=== PATIENT | male | born 1940 | race Caucasian/White ===

== ENCOUNTER 2022-02-16 10:24 | Inpatient (IN) | payer MEDICARE, OTHER ==
[~2022-02-16] VITALS: Ht 177.8 cm; Wt 97.2 kg
--- NOTE | 2022-02-16 11:24 | PM&R Post Admission Assessment ---
PM&R HP Date of Visit: Feb 16, 2022 Time of Visit: 14:00 History of Present Illness CC: Debility following extensive lumbar spine surgery at [facility] Maribel Adams POD # 4 HPI: This is an 81yo male who presented to IR[facility] following an extensive lumbar spine surgery by Dr Adams POD # 4 which has been a bit complicated with slow recovery and post op hiccups along with a fever and hypoxia with abdominal xray and CXR revealing no ileus or PNA but empirically placed on Levaquin who presents to [facility] in need of aggressive therapy in order to regain ADL function and ambulatory skills in order to return home with family. Daughter is at the bedside and very involved in his care. Patient rates his pain at 4. Fever persists so will monitor that closely. Lungs remain clear. Voiding well and BM+. 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 GERD (gastroesophageal reflux disease) Headache Migraines History of migraine headaches Hyperlipidemia Post-operative nausea and vomiting RLS (restless legs syndrome) HX APPENDECTOMY HX CERVICAL SPINE SURGERY DR ADAMS/MARIBEL ANGEL HX EGD N/A 12/17/2021 ESOPHAGOGASTRODUODENOSCOPY WITH DILATION performed by Carmela Cuellar MD (John) at [facility] HX EXTREMITY CYST EXCISION Right wrist cyst removed 3 times HX HAND SURGERY HX SPINAL CORD STIMULATOR IMPLANT 2007 HX SPINAL SURGERY AK AUTOGRAFT SPINE SURGERY LOCAL FROM SAME INCISION N/A 02/12/2022 L4-S1 Transforaminal Lumbar Interbody Fusion / Posterior Spinal Fusion with left approach and L4-S1 instrumentation performed by Jude Adams MD at [facility] OR AK BIOPSY OF STOMACH,BY LAPAROTOMY N/A 12/17/2021 GASTRIC BIOPSY performed by Carmela Cuellar MD (John) at [facility] [place] IMPLANT SPINAL NEUROSTIM/DIRECTOR OF DISTRICT OFFICE N/A 10/02/2021 SPINAL CORD DORSAL COLUMN STIMULATOR BATTERY EXCHANGE performed by Jude Adams MD at [facility] OR simvastatin (ZOCOR) 20 mg tablet Take 20 mg by mouth daily with supper. 02/11/2022 at Unknown time SUMAtriptan (IMITREX) 50 mg tablet 02/11/2022 at Unknown time HYDROcodone-acetaminophen (NORCO) 10-325 mg Tablet Take 1 Tablet by mouth every 8 hours as needed. Past Week at Unknown time divalproex (DEPAKOTE) 250 mg Delayed Release tablet Take 250 mg by mouth 3 times daily. 02/11/2022 at Unknown time potassium chloride (KLOR-CON) 20 mEq Extended Release tablet Take 20 mEq by mouth daily. 02/11/2022 at Unknown time omeprazole (PriLOSEC) 40 mg Capsule, Delayed Release(E.C.) Take 40 mg by mouth daily in the morning. 02/12/2022 at Unknown time gabapentin (NEURONTIN) 600 mg tablet Take 600 mg by mouth 3 times daily. 02/11/2022 at Unknown time cetirizine (ZyrTEC) 10 mg tablet Take 10 mg by mouth daily after lunch. 02/11/2022 at Unknown time terazosin (HYTRIN) 10 mg capsule Take 10 mg by mouth daily at bedtime. 02/11/2022 at Unknown time rOPINIRole (REQUIP) 2 mg Tablet Take 2 mg by mouth daily at bedtime. 02/11/2022 at Unknown time carboxymethylcellulose sodium (REFRESH) 0.5 % solution Administer 1 Drop in both eyes 2 times daily as needed. diclofenac sodium (VOLTAREN) 1 % gel Apply to affected area 4 times daily as needed for Pain. Unknown at Unknown time meloxicam (MOBIC) 7.5 mg tablet Take 7.5 mg by mouth daily before supper. 02/02/2022 Past Snycagm-Vfbolg-Jrhmlj Hx Past Med/Social Hx: Reviewed Nursing Past Med/Soc Hx, Reviewed and Corrections made Patient Social History Marrital Status: Employed/Student: retired Alcohol Use: Denies Use Smoking Status: Former Smoker Past Medical History Surgeries: Orthopedic Cardiac: High Cholesterol, Hypertension Neurological: Headaches /Migraines, Neuropathy Genitourinary: Benign Prostatic Hyperpl Gastrointestinal: Gastroesophageal Reflux Musculoskeletal: Arthritis, Chronic Back Pain Cancer: Skin Did You Recieve Any Treatments: Yes What Type of Treatment Did You: Surgical Intervention PM&R Allergy/Meds/Data Review Allergies Coded Allergies: Penicillins (Verified Allergy, Unknown, 02/16/22) Home Medications Scheduled Cetirizine HCl (Cetirizine HCl), 10 MG PO 1300, (Reported) Divalproex Sodium (Depakote), 250 MG PO TID, (Reported) Gabapentin (Gabapentin), 600 MG PO TID, (Reported) Levofloxacin (Levofloxacin), 750 MG PO DAILY, (Reported) Omeprazole (Omeprazole), 40 MG PO DAILY, (Reported) Potassium Chloride (Potassium Chloride), 20 MEQ PO DAILY, (Reported) Ropinirole HCl (Ropinirole HCl), 2 MG PO HS, (Reported) Simvastatin (Simvastatin), 20 MG PO 1800 W/ SUPPER, (Reported) Terazosin HCl (Terazosin HCl), 10 MG PO HS, (Reported) Scheduled PRN Baclofen (Baclofen), 10 MG PO Q8H PRN for MUSCLE SPASMS, (Reported) Carboxymethylcellulose Sodium (Refresh Tears), 1 DROP OU BID PRN for DRY EYES, (Reported) Diclofenac Sodium (Diclofenac Sodium), 1 APPLIC TP QID PRN for PAIN- BREAKTHROUGH, (Reported) Hydrocodone/Acetaminophen (Hydrocodone-Acetamin 10-325 mg), 1 EACH PO Q4H PRN for PAIN-MODERATE (5-7), (Reported) Naloxone HCl (Naloxone HCl), 1 SPRAYS NS UD PRN for OPIIATE OVERDOSE, (Reported) Sumatriptan Succinate (Sumatriptan Succinate), 50 MG PO UD PRN for MIGRAINE, (Reported) Current Medications Current Medications Reviewed Review of Systems Constitutional: see HPI, malaise, weakness EENTM: no symptoms reported Respiratory: no symptoms reported Cardiovascular: no symptoms reported Gastrointestinal: other (hiccups) Genitourinary: no symptoms reported Musculoskeletal: back pain, joint pain Skin: no symptoms reported Psychiatric/Neurological: Anxiety All Other Systems Reviewed Negative Unless Noted: Yes Physical Exam Physical Exam Vital Signs Capillary Refill : Height, Weight, BMI Height: '" Weight: lbs. oz. kg; BMI Method: General Appearance: No Apparent Distress, WD/WN, Chronically ill Eyes: Bilateral Eye Normal Inspection, Bilateral Eye PERRL HEENT: PERRL/EOMI, Normal ENT Inspection, Pharynx Normal Neck: Full Range of Motion, Normal Inspection, Non Tender, Supple, Carotid Bruit Respiratory: Chest Non Tender, Lungs Clear, Normal Breath Sounds, No Accessory Muscle Use, No Respiratory Distress Cardiovascular: Regular Rate, Rhythm, No Edema, No Gallop, No JVD, No Murmur, Normal Peripheral Pulses Gastrointestinal: Normal Bowel Sounds, No Organomegaly, No Pulsatile Mass, Non Tender, Soft Back: Normal Inspection, Decreased Range of Motion, Muscle Spasm, Vertebral Tenderness Extremity: Normal Capillary Refill, Normal Inspection, Normal Range of Motion, Non Tender, No Calf Tenderness, No Pedal Edema Neurologic/Psychiatric: Alert, Oriented x3, Normal 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, 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 Norm as Tested, Abnormal Gait, Motor Weakness (legs) Skin: Normal Color, Warm/Dry Lymphatic: No Adenopathy PM&R Medical Assessment & Plan REHAB/MEDICAL ASSESSMENT AND PLAN: REHAB IMPAIRMENT GROUP: Lumbar stenosis ETIOLOGIC DIAGNOSIS: Lumbar stenosis The comorbidities that impact the patients function and/or functional outcome by: advanced age, post op fever, hypoxia, hiccups REHAB PLAN: The patient is being admitted to our comprehensive inpatient rehabilitation facility and can tolerate the intensity of service consisting of at least: 180 minutes of therapy a day, 5 out of 7 days a week Rehab treatment will consist of: PT OT will focus on regaining function in order to regain ADL's and ambulatory function in order to return to independent living The patient/family has a good understanding of our discharge process and will benefit from an interdisciplinary inpatient rehabilitation program. The patient has potential to make improvement and is in need of at least two of the following multidisciplinary therapies including but not limited to physical, occupational, speech, and prosthetics and orthotics. Additionally the patient will need services from respiratory, nutritional services, wound care, psychology, etc. (Customize this to each patient). Given the patients complex condition and risk of further medical complications, rehabilitation services cannot be safely or effectively provided at a lower level of care such as a shelter facility. BARRIERS TO DISCHARGE: Advanced age ESTIMATED LOS: 7 days DISPOSITION: Home RELEVANT CHANGES SINCE PREADMISSION SCREENING: I have compared the patients medical and functional status at the time of the preadmission screening and there are: no changes PROGNOSIS: Good REHABILITATION GOALS: 1. PT OT will focus on regaining function in order to regain ADL's and ambulatory function in order to return to independent living All the above goals were reviewed with the patient and he/she is in agreement. By signing this document, I acknowledge that I have personally performed a full physical examination on this patient within 24 hours of admission to this inpatient rehabilitation facility and have determined the patient to be able to tolerate the above course of treatment at an intensive level for a reasonable period of time. I will be completing a detailed individualized Plan of Care for this patient by day #4 of the patients stay based upon the Preadmission Screen, the Post-Admission Evaluation, and the therapy evaluations. Admission Dx/Comorbidities: (1) Spinal stenosis, lumbar region with neurogenic claudication ICD Codes: M48.062 - Spinal stenosis, lumbar region with neurogenic claudication Assessment/Plan Assessment and Plan Assess & Plan/Chief Complaint Assessment: Lumbar stenosis POD # [address] Adams in [facility] [place] Post op fever CXR and KUB negative placed on Levaquin empirically Advanced age HTN HLP BPH OA RLS Neuropathy Migraines Post op hiccups placed on Baclofen Plan: Monitor pain Baclofen for hiccups Levaquin empirically GEORGE OMER DO Feb 16, 2022 11:24
[2022-02-16] MEDS ORDERED: DICL100G13 TP (11:27)
[2022-02-16] MEDS ORDERED: CARB15DR OU (11:27)
[2022-02-16] MEDS ORDERED: TERA10CA3 PO (11:27)
[2022-02-16] MEDS ORDERED: SUMA50TA2 PO (11:27)
[2022-02-16] MEDS ORDERED: CETI10TA17 PO (11:27)
[2022-02-16] MEDS ORDERED: BACL10TA PO (11:27)
[2022-02-16] MEDS ORDERED: ROPI2TAB6 PO (11:27)
[2022-02-16] MEDS ORDERED: GBPN600T PO (11:27)
[2022-02-16] MEDS ORDERED: DIVA250T2 PO (11:27)
[2022-02-16] MEDS ORDERED: SIMV20TA26 PO (11:27)
[2022-02-16] MEDS ORDERED: HYDR-3820 PO (11:27)
[2022-02-16] MEDS ORDERED: OMEP40CA6 PO (11:27)
[2022-02-16] MEDS ORDERED: LEVO750T39 PO (11:27)
[2022-02-16] MEDS ORDERED: POTA-51 PO (11:27)
[2022-02-16] MEDS ORDERED: NALO4SPR3 NS (11:27)
[2022-02-16] MEDS ORDERED: DOCUSATE SODIUM 100 MG (COLACE) CAP PO PRN (11:30)
[2022-02-16] MEDS ORDERED: FLEET ENEMA ADULT 1 EA BTL PR PRN (11:30)
[2022-02-16] MEDS ORDERED: CALCIUM CARBONATE 500 MG (TUMS) TAB.CHEW PO PRN (11:30)
[2022-02-16] MEDS ORDERED: BISACODYL 10 MG SUPP (DULCOLAX) PR PRN (11:30)
[2022-02-16] MEDS ORDERED: LOPERAMIDE 2 MG (IMODIUM) TABLET PO PRN (11:30)
[2022-02-16] MEDS ORDERED: MELATONIN 3 MG TABLET PO PRN (11:30)
[2022-02-16] MEDS ORDERED: ALPRAZolam 0.25 MG (XANAX) TAB PO PRN (11:30)
[2022-02-16] MEDS ORDERED: guaiFENesin/CODEINE (ROBITUSSIN AC) 10ML UDC PO PRN (11:30)
[2022-02-16] MEDS ORDERED: LACTULOSE SYRUP 10GM/15ML (ENULOSE) 30ML UDC PO PRN (11:30)
[2022-02-16] MEDS ORDERED: diphenhydrAMINE 25 MG TAB (BENADRYL) PO PRN (11:30)
[2022-02-16 13:00] VITALS: BP 131/60
--- NOTE | 2022-02-16 13:48 | Physical Therapy Evaluation ---
PT Evaluation-General Medical Diagnosis Admission Date Feb 16, 2022 at 13:00 Medical Diagnosis: L4-S1 TLIF/PSF Onset Date: Feb 12, 2022 Therapy Diagnosis Therapy Diagnosis: debility/weakness Precautions Precautions/Isolations: Standard Precautions Referral Physician: Kelsie Reason for Referral: Evaluation/Treatment Medical History Current History s/p L4-S1 TLIF/PSF Reviewed History: Yes Social History Home: Single Level Current Living Status: Spouse Entry Into Home: Level Entry Prior Prior Level of Function SCALE: Activities may be completed with or without assistive devices. 2-Luucqzkujl-mrvlsmj completes the activity by him/herself with no assistance from a helper. 5-Set-up or Clean-up Assistance-helper sets up or cleans up; patient completes activity. Elwood assists only prior to or following the activity. 4-Supervision or Touching Assistance-helper provides verbal cues and/or touching/steadying and/or contact guard assistance as patient completes activity. Assistance may be provided throughout the activity or intermittently. 3-Partial/Moderate Assistance-helper does LESS THAN HALF the effort. Elwood lifts, holds or supports trunk or limbs, but provides less than half the effort. 2-Substantial/Maximal Assistance-helper does MORE THAN HALF the effort. Elwood lifts or holds trunk or limbs and provides more than half the effort. 0-Mcdygvcsx-zopxmd does ALL the effort. Patient does none of the effort to complete the activity. Or, the assistance of 2 or more helpers is required for the patient to complete the activity. If activity was not attempted, code reason: 7-Patient Refused. 9-Not Applicable-not attempted and the patient did not perform the activity before the current illness, exacerbation or injury. 10-Not Attempted due to Environmental Limitations-(lack of equipment, weather restraints, etc.). 88-Not Attempted due to Medical Conditions or Safety Concerns. Bed Mobility: 6 Transfers (B,C,W/C): 6 Gait: 6 Stairs: 6 Indoor Mobility (Ambulation): Independent Stairs: Independent Prior Devices Use: Other-see list below Prior Device Use: cane PT Evaluation-Current Subjective Patient agrees to PT. Patient reports he has a pain stimulator in his back. Pain Numeric Pain Scale: 5-Moderate Pain Location: Lower Location Body Site: Back Pain Description: Acute Objective Patient Orientation: Normal For Age ROM/Strength ROM Lower Extremities bilateral LE WFL Strength Lower Extremities 4-/5 grossly bilateral LE all planes Integumentary/Posture Integumentary refer to nursing notes Bowel Incontinence: No Bladder Incontinence: No Posture slight trunk flexed posture Neuromuscular (Tone, Coordination, Reflexes) grossly intact Sensory Vision: Wears Glasses Hearing: Hearing Aid/Aides Sensation Right Lower Extremit: Intact Sensation Left Lower Extremity: Intact Transfers Roll Left & Right (QC): 4 Sit to Lying (QC): 4 Lying to Sitting/Side of Bed(Q: 4 Sit to Stand (QC): 4 Chair/Aae-dp-Pbrbs Xfer(QC): 4 Toilet Transfer (QC): 4 Car Transfer (QC): 4 Gait Does the Patient Walk?: Yes Mode of Locomotion: Walk Anticipated Mode of Locomotion: Walk Walk 10 feet (QC): 4 Walk 50 ft with 2 Turns(QC): 4 Walk 150 ft (QC): 4 Walking 10ft/uneven surface-QC: 4 Distance: 150' x 5 Gait Assistive Device: FWW Comments/Gait Description slow, steady gait sequence Wheelchair Training Does the Pt Use a Wheelchair?: No Wheel 50 ft with 2 turns (QC): 9 Wheel 150 ft (QC): 9 Stairs #of Steps: 4 1 Step (curb) (QC): 3 4 Steps (QC): 3 12 Steps (QC): 88 Balance Sitting Static: Normal Sitting Dynamic: Normal Standing Static: Good Standing Dynamic: Good Picking up an Object (QC): 4 (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 PT focusing on ambulation, LE strengthening and mobility while OT focusing on ADLs and f unctional mobility. Rehab Potential: Fair PT Usp Goals Usp Goals PT Usp Goals Time Frame: Mar 21, 2022 Roll Left & Right (QC): 6 Sit to Lying (QC): 6 Lying-Sitting on Side/Bed(QC): 6 Sit to Stand (QC): 6 Chair/Xha-xo-Yegau Xfer(QC): 6 Toilet Transfer (QC): 6 Car Transfer (QC): 6 Does the Patient Walk: Yes Walk 10 feet (QC): 6 Walk 50ft with 2 Turns (QC): 6 Walk 150 ft (QC): 6 Walking 10ft on Uneven Surface: 6 1 Step (curb) (QC): 4 4 Steps (QC): 4 12 Steps (QC): 88 Picking up an Object (QC): 6 Wheel 50 feet with 2 turns (QC: 9 Wheel 150 feet: 9 PT Plan Problem List Problem List: Activity Tolerance, Functional Strength, Safety, Balance, Gait, Transfer, Bed Mobility Treatment/Plan Treatment Plan: Continue Plan of Care Treatment Plan: Bed Mobility, Concurrent Therapy, Education, Functional Activity Cl[place], Functional Strength, Group Therapy, Gait, Safety, Therapeutic Exercise, Transfers Treatment Duration: Mar 21, 2022 Frequency: At least 5 of 7 days/Wk (IRF) Estimated Hrs Per Day: 1.5 hours per day Patient and/or Family Agrees t: Yes Safety Risks/Education Patient Education: Gait Training, Safety Issues Teaching Recipient: Patient Teaching Methods: Demonstration, Discussion Response to Teaching: Verbalize Understanding, Return Demonstration Discharge Recommendations Therapy Discharge Recommendati: Home & Family Time/GCodes Time In: 1245 Time Out: 1410 Total Billed Treatment Time: 75 Total Billed Treatment 1 visit EVModC 15 min FA x 2 30 min 1 visit FA x 2 30 min ([id number] Cotreat with OT) KAVIN BETH PT Feb 16, 2022 13:48
--- NOTE | 2022-02-16 13:54 | ST Cognitive Linguistic Eval ---
Speech Evaluation-General Medical Diagnosis L4-S1 TLIF/PSF Onset Date: Feb 12, 2022 Therapy Diagnosis Therapy Diagnosis: Intact Cognitive Linguistic Skills Precautions Precautions: Fall Precautions/Isolations: Fall Prevention, Standard Precautions Referral Referring Physician: Dr. Iglesias Reason for Referral: Evaluation/Treatment Medical History Current History The patient is an 81 year old male, who is status post L4-S1 TLIF/PSF on 02/12/22. Reviewed History: Yes Social History Current Living Status: Spouse Speech PLF-Current Status Prior Level of Function The patient denied prior challenges or current concerns with his speech, language, or cognition. Subjective The patient was seated upright in his recliner, awake and alert upon entrance to his room by the clinician. The patient greeted the clinician appropriately and was agreeable to participation in the cognitive linguistic assessment. Language Eval: Auditory Comprehends Simple Yes/No Ques: Functional Indent/Objects Multiple Villagomez: Functional Ident/Pics in Multiple Villagomez: Functional Follows 1-Step Commands: Functional Follows Complex Directions: Functional Follows General Conversations: Functional Language Eval: Verbal Language Completes Spontaneous Greeting: Functional Produces Auto, Serial Info: Functional Imitates Simple Words/Phrases: Functional Word Finding: Functional Requests Basic Needs: Functional States Basic Personal Info: Functional Expresses Complex Ideas: Functional Cognitive Patient Orientation The patient was independently oriented to self, location, month, day of the week, and year. Objective Cognitive Domain Attention: WNL Memory: WNL Problem Solving: Functional Executive Functions: WNL Visuospatial Skills: WNL Composite Severity Rating: WNL Objective Formal/Standardized Tests [facility] Mental Status Examination ([facility]) Results The patient demonstrated a result of +30/30 on the SLUMS which correlates to cognitive linguistic skills within normal limits. Oral Motor/Speech Production The patient does not display dysarthria or apraxia of speech. The patient remains 100% intelligible in known and unknown contexts. Impression The patient demonstrated cognitive linguistic skills within normal limits. Speech Patient Assess Expression of Ideas/Wants: Expression (4) Understanding Verbal Content: Understands (4) Brief Interview-Mental Status: Yes Repetition of Three Words: Three (3) Temporal Orientation: Year: Correct (3) Temporal Orientation: Month: Accurate within 5 days(2) Temporal Orientation: Day: Correct (1) Recall : Wear to say "Sock": Yes, no cue required (2) Recall : Color: Yes, no cue required (2) Recall : Bed: Yes, no cue required (2) Memory/Recall Ability: Current season, That he or she is in a hsp/hsp unit Speech-Plan Treatment Plan Speech Therapy Treatment Plan: Discontinue ST Treatment Duration: Feb 16, 2022 Frequency: 1 time per week Estimated Hrs Per Day: .5 hour per day Rehab Potential: Fair Pt/Family Agrees to Plan: Yes Safety Risks/Education Teaching Recipient: Patient Teaching Methods: Discussion Response to Teaching: Verbalize Understanding Education Topics Provided: Results of VIKTORIA POC Time Speech Therapy Time In: 14:15 Speech Therapy Time Out: 14:45 Total Billed Time: 30 Billed Treatment Time 1, TERRELL LAGUERRE [address] ST Feb 16, 2022 13:54
--- NOTE | 2022-02-16 14:01 | Occupational Therapy Eval ---
OT Evaluation-General/PLF Medical Diagnosis Admission Date Feb 16, 2022 at 13:00 Medical Diagnosis: L4-S1 TLIF/PSF Onset Date: Feb 12, 2022 Therapy Diagnosis Therapy Diagnosis: decreased ADL status Precautions Precautions/Isolations: Standard Precautions Comments back precautions. No BLT. Back Brace when OOB Referral Physician: Kelsie Mcgovern Reason: Evaluation/Treatment Medical History Additional Medical History OA, GERD, HLD, RLS, hand sx, spinal cord stimulator implant, cervical spine sx, BPH, skin cancer, and restless leg syndrome Current History S/p L4-S1 TLIF/PSF on 02/12. Social History Home: Single Level Current Living Status: Spouse Entry Into Home: Level Entry ADL-Prior Level of Function SCALE: Activities may be completed with or without assistive devices. 8-Xxempxuuwy-zjhpwkf completes the activity by him/herself with no assistance from a helper. 5-Set-up or Clean-up Assistance-helper sets up or cleans up; patient completes activity. [place] assists only prior to or following the activity. 4-Supervision or Touching Assistance-helper provides verbal cues and/or touching/steadying and/or contact guard assistance as patient completes activity. Assistance may be provided throughout the activity or intermittently. 3-Partial/Moderate Assistance-helper does LESS THAN HALF the effort. [place] lifts, holds or supports trunk or limbs, but provides less than half the effort. 2-Substantial/Maximal Assistance-helper does MORE THAN HALF the effort. [place] lifts or holds trunk or limbs and provides more than half the effort. 3-Tylijzhzr-lyydbp does ALL the effort. Patient does none of the effort to complete the activity. Or, the assistance of 2 or more helpers is required for the patient to complete the activity. If activity was not attempted, code reason: 7-Patient Refused. 9-Not Applicable-not attempted and the patient did not perform the activity before the current illness, exacerbation or injury. 10-Not Attempted due to Environmental Limitations-(lack of equipment, weather restraints, etc.). 88-Not Attempted due to Medical Conditions or Safety Concerns. ADL PLOF Comments Pt reports being independent with ADLs and functional mobility at PLOF, using cane as needed. His bathroom is a tub/shower combo, no GBs, no SC. Pt's 's shower is a walk in with a small ledge, and SC. Pt's daughter indicates she will check with pt's hospice nurse to see if it is safe for pt to use the bathroom (pt's has history of chemotherapy). Pt is the primary caregiver for his who is home with hospice, but pt has 4 supportive children in the area. Self Care: Independent Functional Cognition: Independent DME/Equipment: Tall Toilet, Tub/Shower hunts, fishes, woodworks. 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 Pt rates pain 5/10 Mental Status/Objective Patient Orientation: Person, Place, Situation Current Glasses/Contacts: Yes Hearing Aids: Yes Dentures/Partials: Yes Hand Dominance: Right Upper Extremity ROM Bilaterally WFL. No deficits noted Upper Extremity Coordination No deficits noted Upper Extremity Sensation Pt reports no sensation deficits in BUE Upper Extremity Strength BUE grossly 3+/5 ADL-Treatment Eating (QC): 6 Oral Hygiene (QC): 5 (seated in recliner) Shower/Bathe Self (QC): 3 (Min A overall. Pt required assistance to wash below the knees bilaterally and SBA for standing balance to wash buttocks/periarea) Upper Body Dressing (QC): 5 (shirt and TLSO brace) Lower Body Dressing (QC): 3 (Mod A to thread BLE through briefs and pants. Pt able to hike pants ) On/Off Footwear (QC): 2 (Max A to thread and hike bilateral gripper socks) Toileting Hygiene (QC): 4 (SBA for standing balance to hike pants) Other Treatments OT evaluation complete, OT/PT cotreat due to skill of 2 clinicians required that a clinical rehabilitation aide could not perform in order to coordinate UE/LEs, decrease fall risk, focus on higher level balance tasks, and due to pt's limitations in strength, activity tolerance, mobility, and transfers. OT focused on UE p lacement, cues for sequencing and safety and ADLs, PT focused on LE placement, gross overall movement, and transfers/mobility. He walked from EOB into the bathroom with FWW, SBA, to complete showering and dressing. Afterwards he walked back to recliner, SB, to eat lunch. [id number]: Pt seated in recliner finishing lunch upon OT arrival, agreeable to tx. He says he is feeling tired, so he requested to complete oral care seated in recliner. Pt participated in functional activity to increase activity tolerance and fine motor coordination, completing nuts and bolts board seated in recliner. Pt reported minimal pain in bilateral shoulders, but tolerated activity well overall. Post tx, pt left in recliner with call light in reach and all needs met. Education OT Patient Education: Correct positioning, Energy conservation, Exercise program, Instructions to caregiver, Modified ADL techniques, Progress toward Goal/Update tx plan, Purpose of tx/functional activities, Reviewed precautions, Rehab process, Safety issues, Transfer techniques Teaching Recipient: Patient Teaching Methods: Discussion Response to Teaching: Verbalize Understanding OT Short Term Goals Short Term Goals Time Frame: Feb 27, 2022 Shower/bathe self: 4 Lower body dressin Putting on/taking off footwear: 3 OT Draw Furnace Tender Goals Draw Furnace Tender Goals Time Frame: Mar 13, 2022 Eating (QC): 6 Oral Hygiene (QC): 6 Toileting Hygiene (QC): 6 Shower/Bathe Self (QC): 5 Upper Body Dressing (QC): 6 Lower Body Dressing (QC): 6 On/Off Footwear (QC): 6 Additional Goals: 1-Demonstrate ADL Tasks, 2-Verbalize Understanding, 3- ImproveStrength/Claudette 1=Demonstrate adherence to instructed precautions during ADL tasks. 2=Patient will verbalize/demonstrate understanding of assistive devices/modifications for ADL. 3=Patient will improve strength/tolerance for activity to enable patient to perform ADL's. OT Education/Plan Problem List/Assessment Assessment: Decreased Activ Tolerance, Decreased UE Strength, Impaired Funct Balance, Impaired I ADL's, Impaired Self-Care Skills Discharge Recommendations Plan/Recommendations: Continue POC Equpiment Recommendations-D/C: Extended Bath Bench, Rails on Tub/Shower, Hip Kit Treatment Plan/Plan of Care Patient would benefit from OT for education, treatment and training to promote independence in ADL's, mobility, safety and/or upper extremity function for ADL's. Plan of Care: ADL Retraining, Functional Mobility, Group Exercise/Act as Ind, UE Funct Exercise/Act Treatment Duration: Mar 13, 2022 Frequency: At least 5 of 7 days/Wk (IRF) Estimated Hrs Per Day: 1.5 hours per day Rehab Potential: Fair Time/GCodes Start Time: 13:30 Stop Time: 15:15 Total Time Billed (hr/min): 75 Billed Treatment Time [id number] OT eval (10'), [id number] OT/PT cotreat (30'), [id number] OT tx (5'), [id number] OT tx (30') 1, EVL (10'), ADL 2 (35') 1, ADL (15'), FA (15') JASSON ROSADO OT Feb 16, 2022 14:01
--- NOTE | 2022-02-16 14:17 | Occupational Therapy Eval ---
OT Evaluation-General/PLF Medical Diagnosis Admission Date Feb 16, 2022 at 13:00 Medical Diagnosis: L4-S1 TLIF/PSF Onset Date: Feb 12, 2022 Therapy Diagnosis Therapy Diagnosis: decreased ADL status and weakness Precautions Precautions/Isolations: Standard Precautions Comments Back precautions, no bending, lifting, or twisting Referral Physician: Kelsie Mcgovern Reason: Evaluation/Treatment Medical History Additional Medical History OA, GERD, HLD, RLS, hand sx, spinal cord stimulator implant, cervical spine sx, BPH, skin cancer, restless leg syndrome Current History S/p L4-S1 TLIF/PSF on 02/12. Social History Home: Single Level Current Living Status: Spouse Entry Into Home: Level Entry ADL-Prior Level of Function SCALE: Activities may be completed with or without assistive devices. 6-Rvyjyoansj-iicstbg completes the activity by him/herself with no assistance from a helper. 5-Set-up or Clean-up Assistance-helper sets up or cleans up; patient completes activity. [place] assists only prior to or following the activity. 4-Supervision or Touching Assistance-helper provides verbal cues and/or touching/steadying and/or contact guard assistance as patient completes activity. Assistance may be provided throughout the activity or intermittently. 3-Partial/Moderate Assistance-helper does LESS THAN HALF the effort. [place] lifts, holds or supports trunk or limbs, but provides less than half the effort. 2-Substantial/Maximal Assistance-helper does MORE THAN HALF the effort. [place] lifts or holds trunk or limbs and provides more than half the effort. 7-Mbedkrakb-mmylaz does ALL the effort. Patient does none of the effort to co mplete the activity. Or, the assistance of 2 or more helpers is required for the patient to complete the activity. If activity was not attempted, code reason: 7-Patient Refused. 9-Not Applicable-not attempted and the patient did not perform the activity before the current illness, exacerbation or injury. 10-Not Attempted due to Environmental Limitations-(lack of equipment, weather restraints, etc.). 88-Not Attempted due to Medical Conditions or Safety Concerns. ADL PLOF Comments Pt reports being IND with all ADLs and IADLs at [facility]. 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 He has four children who all live in the same town and are very supportive. Pt does not have any DME or AE, but he uses a SPC at [facility]. 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 2=Patient will verbalize/demonstrate understanding of assistive devices/modifications for ADL. 3=Patient will improve strength/tolerance for activity to enable patient to perform ADL's. OT Education/Plan Treatment Plan/Plan of Care Patient would benefit from OT for education, treatment and training to promote independence in ADL's, mobility, safety and/or upper extremity function for ADL's. Rehab Potential: JASSON Rutledge OT Feb 16, 2022 14:17
[2022-02-16] MEDS: ONDANSETRON 4 MG (ZOFRAN) ORAL DISSOLVE TAB PO PRN (18:43)
[2022-02-16] MEDS ORDERED: DICLOFENAC 1% GEL 100 GM (VOLTAREN) TUBE TP PRN (19:00)
[2022-02-16 19:57] VITALS: BP 115/56
[2022-02-16] MEDS: ACETAMINOPHEN 325 MG TABLET PO PRN (20:06)
[2022-02-16] MEDS: polyethylene glycoL POWDER 17 GM (MIRALAX) PACK PO SCH (21:29)
[2022-02-16] MEDS: DOCUSATE SODIUM 100 MG (COLACE) CAP PO SCH (21:29)
[2022-02-16] MEDS: SENNA W/DOCUSATE (SENOKOT S) TABLET PO SCH (21:30)
[2022-02-16] MEDS ORDERED: ARTIFICAL TEARS 0.4 ML UNIT DOSE (REFRESH PLUS) OU PRN (21:30)
[2022-02-16] MEDS: BACLOFEN 10 MG (LIORESAL) TAB PO PRN (21:48)
[2022-02-16] MEDS: GABAPENTIN 600 MG (NEURONTIN) TAB PO SCH (21:48)
[2022-02-16] MEDS: DIVALPROEX 250 MG DELAYED RELEASE (DEPAKOTE) TAB PO SCH (21:48)
[2022-02-16] MEDS: TERAZOSIN 5 MG (HYTRIN) CAPSULE PO SCH (21:48)
[2022-02-16] MEDS: rOPINIRole 1 MG (REQUIP) TABLET PO SCH (21:48)
[2022-02-17 06:02] LABS: BASOPHILS % (AUTO) 0 % (0-10); EOSINOPHILS # (AUTO) 0.2 10^3/uL (0.0-0.3); EOSINOPHILS % (AUTO) 6 % (0-10); HEMATOCRIT 27 % (40-54); HEMOGLOBIN 8.9 g/dL (13.3-17.7); LYMPHOCYTES # (AUTO) 0.4 10^3/uL (1.0-4.0); LYMPHOCYTES % (AUTO) 17 % (12-44); MEAN CORPUSCULAR HEMOGLOBIN 30 pg (25-34); MEAN CORPUSCULAR HGB CONC 33 g/dL (32-36); MEAN CORPUSCULAR VOLUME 91 fL (80-99); MEAN PLATELET VOLUME 9.7 fL (9.0-12.2); MONOCYTES # (AUTO) 0.3 10^3/uL (0.0-1.0); MONOCYTES % (AUTO) 14 % (0-12); NEUTROPHILS # (AUTO) 1.6 10^3/uL (1.8-7.8); NEUTROPHILS % (AUTO) 63 % (42-75); PLATELET COUNT 116 10^3/uL (130-400); WHITE BLOOD COUNT 2.5 10^3/uL (4.3-11.0)
[2022-02-17 06:07] LABS: CALCIUM 8.4 MG/DL (8.5-10.1)
[2022-02-17 06:08] LABS: TOTAL PROTEIN 5.8 GM/DL (6.4-8.2)
[2022-02-17 06:10] LABS: BILIRUBIN,TOTAL 0.6 MG/DL (0.1-1.0)
--- NOTE | 2022-02-17 06:10 | Individualized Plan of Care ---
Individualized Plan of Care Rehab Nursing IPOC Order Admission Date Feb 16, 2022 at 13:00 Current Orders Orders Admission Order(Inpt,Obs,Sdc) (02/16/22 11:20) Vital Signs: Per Unit Policy ( 08,16,00 (02/16/22 11:20) Ismael Garrett , (02/16/22 11:20) Sequential Compression Device (02/16/22 11:20) High School Foreign Language Teacher-Inpt Rehab Con (02/16/22 11:20) Rehab Nursing Orders-Ipoc (02/16/22 11:20) Physical Therapy Rehab Orders (02/16/22 11:20) Occupational Therapy Rehab Ord (02/16/22 11:20) Speech Therapy Rehab Orders (02/16/22 11:20) Cbc With Automated Diff (02/17/22 06:00) Comprehensive Metabolic Panel (02/17/22 06:00) Precautions (Aru) (02/16/22 11:20) Weekly Weight WEEK (02/16/22 11:20) Rehab-Intensity Of Therapy (02/16/22 11:20) Initiate Admission Nursing Pro .admission (02/16/22 11:20) Alprazolam Tablet (Xanax Tablet) (02/16/22 11:30) Calcium Carbonate Chew Tablet (Antacid C (02/16/22 11:30) Diphenhydramine Tablet (Benadryl Tablet) (02/16/22 11:30) Docusate Sodium Capsule (Colace Capsule) (02/16/22 21:00) Docusate Sodium Capsule (Colace Capsule) (02/16/22 11:30) Bisacodyl Suppository (Dulcolax Supposit (02/16/22 11:30) Lactulose Oral Solution (Enulose Oral So (02/16/22 11:30) Na Phos/Na Biphos Enema (Fleet Enema Gideon (02/16/22 11:30) Guaifenesin/Codeine Syrup (Robitussin Ac (02/16/22 11:30) Loperamide Tablet (Imodium Tablet) (02/16/22 11:30) Melatonin Tablet (Melatonin Tablet) (02/16/22 11:30) Polyethylene Glycol Powder Pkt (Miralax (02/16/22 21:00) Ondansetron Oral Dissolve Tab (Zofran (02/16/22 11:30) Senna S Tablet (Senokot S Tablet) (02/16/22 21:00) Acetaminophen Tablet/Caplet (Tylenol T (02/16/22 11:30) Code/Resuscitation (02/16/22 11:20) Initiate Admission Nursing Pro .admission (02/16/22 11:20) Admission Arrival Bed Request (02/16/22 12:54) General/Regular (02/16/22 Lunch) Patient Visit (02/16/22 ) Speech Sound Lang Comp (02/16/22 ) Treat. Speech/Lang/Voice (02/16/22 ) Patient Visit (02/16/22 ) Functional Activities, Ea 15 (02/16/22 ) Pt Eval Moderate Complexity (02/16/22 ) Baclofen Tablet (Lioresal Tablet) (02/16/22 19:00) Diclofenac 1% Gel (Voltaren 1% Gel) (02/16/22 19:00) Divalproex Delay Release Tab (Depakote T (02/16/22 21:00) Gabapentin Capsule/Tablet (Neurontin Cap (02/16/22 21:00) Hydrocodone/Apap 10/325 Tablet (Lortab 1 (02/16/22 19:00) Levofloxacin Tablet (Levaquin Tablet) (02/17/22 10:00) Sumatriptan Tablet (Imitrex Tablet) (02/16/22 19:00) Carboxymethylcell Ophth Soln (Refresh Pl (02/16/22 21:30) Pantoprazole Tablet (Protonix Tablet) (02/17/22 07:00) Potassium Chloride (Tablet) (K Dur Table (02/17/22 07:00) Ropinirole Tablet (Requip Tablet) (02/16/22 22:00) Terazosin Capsule (Hytrin Capsule) (02/16/22 22:00) Ensure Plus Vanilla (02/16/22 19:52) Procalcitonin (Pct) (02/17/22 06:00) Vte Contraindication (02/16/22 21:14) Loratadine Tablet (Claritin Tablet) (02/17/22 13:00) Atorvastatin Tablet (Lipitor Tablet) (02/17/22 18:00) Functional Activities, Ea 15 (02/16/22 ) Smear For Path Review (02/17/22 08:40) Patient Visit (02/17/22 ) Exercise Therap, Ea 15 Min (02/17/22 ) Functional Activities, Ea 15 (02/17/22 ) Incentive Spirometry (Nursing) Q2H (02/17/22 21:11) Rehab Nursing Orders: Ongoing Assess. of Cognitive Status, Ongoing Assess. of Function Status, Bladder Management, Bladder Scan, Bladder Training, Bowel Management, Bowel Training, Disease Management & Educaiton, DVT Prophylaxis, Fall Prevention, Fluid/Electrolyte/Nutrition Mgmt, Infection Prevention, Medication Management & Education, Management of Risks & Complications, Management of Skin Intergrity, Nutrition Management, Pain Management, Patient/Family Support, Safety Management, Weight Bearing Precaution Intensity of Therapy to be met Patient to be seen: Min.3h per day/5 of 7d PT IPOC Problem List: Activity Tolerance, Functional Strength, Safety, Balance, Gait, Transfer, Bed Mobility Treatment Plan: Continue Plan of Care Bed Mobility, Concurrent Therapy, Education, Functional Activity [place], Functional Strength, Group Therapy, Gait, Safety, Therapeutic Exercise, Transfers Treatment Duration: Mar 21, 2022 Frequency: At least 5 of 7 days/Wk (IRF) Estimated Hrs Per Day: 1.5 hours per day OT IPOC Problems: Decreased Activ Tolerance, Decreased UE Strength, Impaired Funct Balance, Impaired I ADL's, Impaired Self-Care Skills OT Treatment, Training and Edu: Yes Plan of Care: ADL Retraining, Functional Mobility, Group Exercise/Act as Ind, UE Funct Exercise/Act Treatment Duration: Mar 13, 2022 Frequency: At least 5 of 7 days/Wk (IRF) Estimated Hrs Per Day: 1.[address] IPOC Speech Therapy Treatment Plan: Discontinue ST Treatment Duration: Feb 16, 2022 Frequency: 1 time per week Estimated Hrs Per Day: .5 hour per day High [employer] Foreign Language Teacher/Case Mgmt [employer] Foreign Language Teacher/Case Managemen: Discharge Planning Dietitian/Public Transit Bus Driver Dietitian/Public Transit Bus Driver to monitor nutritional status and make changes and/or recommendations as needed and work with speech pathology on dietary upgrades as the occur. Physician IPOC Medical Issues being managed closely and that require the 24 hour availability of a physician: Recent spinal surgery with post op fever of unknown source and post op hiccups along with advanced age will require close monitoring for decompensation Medical Issues: Bowel/Bladder Function, DVT Prophylaxis, Falls Precautions, Fluid/Electrolyte/Nutrition Balance, Infection Protection, Pain Management, Sw allowing Precautions, Wound Care Brief Synthesis of Preadmission Screen, Post-Admission Evaluation, and Therapy Evaluations: PT OT will focus on regaining ambulatory function with assistive devices along with fall risk prevention and support in order to regain independence Medical Prognosis: Good Anticipated Length of Stay: 7 days GEORGE OMER DO Feb 17, 2022 06:10
--- NOTE | 2022-02-17 06:10 | PM&R Progress Note ---
Subjective HPI/CC On Admission Date Seen by Provider: Feb 17, 2022 Time Seen by Provider: 09:00 Subjective/Events-last exam 02/17/2022: Doing well Hiccups persist Fever noted Peripheral smear ordered Pain controlled Review of Systems General: Fatigue, Malaise Musculoskeletal: back pain Objective Exam Vital Signs Vital Signs Date Time Temp Pulse Resp B/P (MAP) Pulse Ox O2 Delivery O2 Flow Rate FiO2 02/17/22 19:11 38.3 97 16 111/54 (73) 93 Room Air Capillary Refill : General Appearance: No Apparent Distress, WD/WN, Chronically ill HEENT: PERRL/EOMI, Normal ENT Inspection, Pharynx Normal Neck: Full Range of Motion, Normal Inspection, Non Tender, Supple, Carotid Bruit Respiratory: Chest Non Tender, Lungs Clear, Normal Breath Sounds, No Accessory Muscle Use, No Respiratory Distress Cardiovascular: Regular Rate, Rhythm, No Edema, No Gallop, No JVD, No Murmur, Normal Peripheral Pulses Gastrointestinal: Normal Bowel Sounds, No Organomegaly, No Pulsatile Mass, Non Tender, Soft Back: Normal Inspection, Decreased Range of Motion, Muscle Spasm, Vertebral Tenderness Extremity: Normal Capillary Refill, Normal Inspection, Normal Range of Motion, Non Tender, No Calf Tenderness, No Pedal Edema Neurologic/Psychiatric: Alert, Oriented x3, Normal Mood/Affect, mussel farmer II-XII Norm as Tested, Abnormal Gait, Motor Weakness (legs) Skin: Normal Color, Warm/Dry Lymphatic: No Adenopathy Results/Procedures Lab Laboratory Tests 02/17/22 05:51 Patient resulted labs reviewed. FIM Transfers Therapy Code Descriptions/Definitions Functional [place] Measure: 0=Not Assessed/NA 4=Minimal Assistance 1=Total Assistance 5=Supervision or Setup 2=Maximal Assistance 6=Modified [place] 3=Moderate Assistance 7=Complete IndependenceSCALE: Activities may be completed with or without assistive devices. 0-Npusjojvmx-fynuqmn completes the activity by him/herself with no assistance from a helper. 5-Set-up or Clean-up Assistance-helper sets up or cleans up; patient completes activity. [place] assists only prior to or following the activity. 4-Supervision or Touching Assistance-helper provides verbal cues and/or touching/steadying and/or contact guard assistance as patient completes activity. Assistance may be provided throughout the activity or intermittently. 3-Partial/Moderate Assistance-helper does LESS THAN HALF the effort. [place] lifts, holds or supports trunk or limbs, but provides less than half the effort. 2-Substantial/Maximal Assistance-helper does MORE THAN HALF the effort. [place] lifts or holds trunk or limbs and provides more than half the effort. 6-Kdpihnhjw-wygrav does ALL the effort. Patient does none of the effort to complete the activity. Or, the assistance of 2 or more helpers is required for the patient to complete the activity. If activity was not attempted, code reason: 7-Patient Refused. 9-Not Applicable-not attempted and the patient did not perform the activity before the current illness, exacerbation or injury. 10-Not Attempted due to Environmental Limitations-(lack of equipment, weather restraints, etc.). 88-Not Attempted due to Medical Conditions or Safety Concerns. Roll Left to Right (QC): 4 Sit to Lying (QC): 4 Sit to Stand (QC): 4 Chair/Eue-sd-Sbyje Xfer(QC): 4 Car Transfer (QC): 4 Gait Training Does the Patient Walk?: Yes Walk 10 feet (QC): 4 Walk 50 ft with 2 Turns(QC): 4 Walk 150 ft (QC): 4 Walking 10ft/uneven surface-QC: 4 Gait Assistive Device: FWW Wheelchair Training Does the Pt Use a Wheelchair?: No Wheel 50 ft with 2 turns (QC): 9 Wheel 150 ft (QC): 9 Stair Training #of Steps: 4 1 Step (curb) (QC): 3 4 Steps (QC): 3 12 Steps (QC): 88 Balance Picking up an Object (QC): 4 (column precaster) ADL-Treatment Eating (QC): 6 Oral Hygiene (QC): 5 (seated in recliner) Shower/Bathe Self (QC): 3 (Min A overall. Pt required assistance to wash below the knees bilaterally and SBA for standing balance to wash buttocks/periarea) Upper Body Dressing (QC): 5 (shirt and TLSO brace) Lower Body Dressing (QC): 3 (Mod A to thread BLE through briefs and pants. Pt able to hike pants ) On/Off Footwear (QC): 2 (Max A to thread and hike bilateral gripper socks) Toileting Hygiene (QC): 4 (SBA for standing balance to hike pants) Assessment/Plan Assessment and Plan Assess & Plan/Chief Complaint Assessment: Lumbar stenosis POD # [address] [place] in [place] Post op fever CXR and KUB negative placed on Levaquin empirically Advanced age HTN HLP BPH OA RLS Neuropathy Migraines Post op hiccups placed on Baclofen Plan: Monitor pain Baclofen for hiccups Levaquin empirically 02/17/2022: Monitor fever Levaquin (1) Spinal stenosis, lumbar region with neurogenic claudication GEORGE OMER DO Feb 17, 2022 06:10
[2022-02-17 06:12] LABS: CREATININE SERUM 0.91 MG/DL (0.60-1.30)
[2022-02-17] MEDS: PANTOPRAZOLE 40 MG (PROTONIX) TAB PO SCH (06:26)
[2022-02-17 08:00] VITALS: BP 134/61
[2022-02-17] MEDS: SUMAtriptan 50 MG (IMITREX) TAB PO PRN (08:37)
[2022-02-17] MEDS: GABAPENTIN 600 MG (NEURONTIN) TAB PO SCH ×3 (08:37→20:24)
[2022-02-17] MEDS: ONDANSETRON 4 MG (ZOFRAN) ORAL DISSOLVE TAB PO PRN ×2 (08:37→18:13)
[2022-02-17] MEDS: KCL 20 MEQ TAB (K-DUR) PO SCH (08:38)
[2022-02-17] MEDS: BACLOFEN 10 MG (LIORESAL) TAB PO PRN (08:38)
[2022-02-17] MEDS: DIVALPROEX 250 MG DELAYED RELEASE (DEPAKOTE) TAB PO SCH ×3 (08:38→20:24)
[2022-02-17 08:57] LABS: ABSOLUTE RETIC # 78 10e9/uL (24-90); BASOPHILS % (AUTO) 0 % (0-10); EOSINOPHILS # (AUTO) 0.2 10^3/uL (0.0-0.3); EOSINOPHILS % (AUTO) 6 % (0-10); HEMATOCRIT 27 % (40-54); HEMOGLOBIN 8.9 g/dL (13.3-17.7); MEAN CORPUSCULAR HEMOGLOBIN 30 pg (25-34); MEAN CORPUSCULAR HGB CONC 33 g/dL (32-36); MEAN CORPUSCULAR VOLUME 91 fL (80-99); MONOCYTES # (AUTO) 0.3 10^3/uL (0.0-1.0); RETICULOCYTE % 2.59 % (0.50-2.40)
[2022-02-17 09:01] LABS: WHITE BLOOD COUNT 2.5 10^3/uL (4.3-11.0)
[2022-02-17 09:02] LABS: LYMPHOCYTES # (AUTO) 0.4 10^3/uL (1.0-4.0); LYMPHOCYTES % (AUTO) 17 % (12-44); MEAN PLATELET VOLUME 9.7 fL (9.0-12.2); MONOCYTES % (AUTO) 14 % (0-12); NEUTROPHILS # (AUTO) 1.6 10^3/uL (1.8-7.8); NEUTROPHILS % (AUTO) 63 % (42-75); PLATELET COUNT 116 10^3/uL (130-400)
--- NOTE | 2022-02-17 09:03 | Physical Therapy Daily Note ---
PT Daily Note-Current Subjective Pt sound asleep Supine in bed upon arrival. Pt was difficult to awaken. Pt agrees to PT but reports headache & backache. Pain Numeric Pain Scale: 6 Location: Lower Location Body Site: Back Pain Description: Ache Comment: Reports head & back ache, rating 6/10 Mental Status Patient Orientation: Person, Place, Time, Situation Attachments: Other-See Comments (TLSO Brace) Transfers SCALE: Activities may be completed with or without assistive devices. 4-Fxvlovgqnv-hbxsncd completes the activity by him/herself with no assistance from a helper. 5-Set-up or Clean-up Assistance-helper sets up or cleans up; patient completes activity. [place] assists only prior to or following the activity. 4-Supervision or Touching Assistance-helper provides verbal cues and/or touching/steadying and/or contact guard assistance as patient completes activity . Assistance may be provided throughout the activity or intermittently. 3-Partial/Moderate Assistance-helper does LESS THAN HALF the effort. [place] lifts, holds or supports trunk or limbs, but provides less than half the effort. 2-Substantial/Maximal Assistance-helper does MORE THAN HALF the effort. [place] lifts or holds trunk or limbs and provides more than half the effort. 8-Vdusjsrhv-jolpqn does ALL the effort. Patient does none of the effort to complete the activity. Or, the assistance of 2 or more helpers is required for the patient to complete the activity. If activity was not attempted, code reason: 7-Patient Refused. 9-Not Applicable-not attempted and the patient did not perform the activity before the current illness, exacerbation or injury. 10-Not Attempted due to Environmental Limitations-(lack of equipment, weather restraints, etc.). 88-Not Attempted due to Medical Conditions or Safety Concerns. Roll Left & Right (QC): 5 Exercises Supine Ex: Ankle pumps, Quad Set, Glut sets, Heel Slides, Scooting, Hip abd/add Supine Reps: 20 Treatments SLAG EXPANDER took several attempts to awaken pt as pt didn't sleep well and was sound asleep. Pt completes Supine EX with instruction/demonstration. Several RB as needed for fatigue and discomfort. SLAG EXPANDER gave pt educ. over ARU expectations, how weekly meeting for Wednesday d/c works as well as what pt can work on to supplement Therapy done during week. Pt resting at end of tx with all needs met, call light in hand. Morning meds given during tx. Assessment Current Status: Fair Progress Pt was very fatigued and reported pain limits movement. PT Sonar Watchstander Goals Care Home Goals PT Sonar Watchstander Goals Time Frame: Mar 21, 2022 Roll Left & Right (QC): 6 Sit to Lying (QC): 6 Lying-Sitting on Side/Bed(QC): 6 Sit to Stand (QC): 6 Chair/Zof-ui-Pselo Xfer(QC): 6 Toilet Transfer (QC): 6 Car Transfer (QC): 6 Does the Patient Walk: Yes Walk 10 feet (QC): 6 Walk 50ft with 2 Turns (QC): 6 Walk 150 ft (QC): 6 Walking 10ft on Uneven Surface: 6 1 Step (curb) (QC): 4 4 Steps (QC): 4 12 Steps (QC): 88 Picking up an Object (QC): 6 Wheel 50 feet with 2 turns (QC: 9 Wheel 150 feet: 9 PT Plan Problem List Problem List: Activity Tolerance Treatment/Plan Treatment Plan: Continue Plan of Care Treatment Plan: Bed Mobility, Concurrent Therapy, Education, Functional Activity Claudette, Functional Strength, Group Therapy, Gait, Safety, Therapeutic Exercise, Transfers Treatment Duration: Mar 21, 2022 Frequency: At least 5 of 7 days/Wk (IRF) Estimated Hrs Per Day: 1.5 hours per day Patient and/or Family Agrees t: Yes Safety Risks/Education Patient Education: Correct Positioning Teaching Recipient: Patient Teaching Methods: Discussion Response to Teaching: Verbalize Understanding Time/GCodes Time In: 800 Time Out: 900 Total Billed Treatment Time: 60 Total Billed Treatment 1, EX x2 (30m) & FA x2 (30m) SHANE MOY SLAG EXPANDER Feb 17, 2022 09:03
[2022-02-17 10:15] LABS: BAND NEUTROPHILS 3 %; BASOPHILS % (MANUAL) 0 %; EOSINOPHILS % (MANUAL) 4 %; LYMPHOCYTES % (MANUAL) 17 %; MONOCYTES % (MANUAL) 11 %; NEUTROPHILS % (MANUAL) 65 %
[2022-02-17 10:16] LABS: ANISOCYTOSIS SLIGHT
--- NOTE | 2022-02-17 11:15 | Occupational Ther Daily Note ---
OT Current Status-Daily Note Subjective Pt asleep in bed upon OT arrival, agreeable to tx once awakened. Pt rates pain 6/10 at beginning of session and reports headache during session, nurse notified. Mental Status/Objective Patient Orientation: Person, Place, Situation ADL-Treatment Therapy Code Descriptions/Definitions Functional [place] Measure: 0=Not Assessed/NA 4=Minimal Assistance 1=Total Assistance 5=Supervision or Setup 2=Maximal Assistance 6=Modified [place] 3=Moderate Assistance 7=Complete IndependenceSCALE: Activities may be completed with or without assistive devices. 5-Ohwrsjxqhr-glkfppr completes the activity by him/herself with no assistance from a helper. 5-Set-up or Clean-up Assistance-helper sets up or cleans up; patient completes activity. [place] assists only prior to or following the activity. 4-Supervision or Touching Assistance-helper provides verbal cues and/or touching/steadying and/or contact guard assistance as patient completes activity. Assistance may be provided throughout the activity or intermittently. 3-Partial/Moderate Assistance-helper does LESS THAN HALF the effort. [place] lifts, holds or supports trunk or limbs, but provides less than half the effort. 2-Substantial/Maximal Assistance-helper does MORE THAN HALF the effort. [place] lifts or holds trunk or limbs and provides more than half the effort. 4-Mgpmwvogh-xzzqyu does ALL the effort. Patient does none of the effort to complete the activity. Or, the assistance of 2 or more helpers is required for the patient to complete the activity. If activity was not attempted, code reason: 7-Patient Refused. 9-Not Applicable-not attempted and the patient did not perform the activity before the current illness, exacerbation or injury. 10-Not Attempted due to Environmental Limitations-(lack of equipment, weather restraints, etc.). 88-Not Attempted due to Medical Conditions or Safety Concerns. Shower/Bathe Self (QC): 4 (SBA for standing balance when cleaning and drying buttocks/periarea) Upper Body Dressing (QC): 5 Lower Body Dressing (QC): 3 (Mod A to thread BLE into underwear and pants) On/Off Footwear: 2 (Max A to don both gripper socks) Other Treatment Pt required min A to transfer supine<>seated EOB where he IND donned TLSO brace. He stood from raised bed with CGA. Pt used FWW to walk to bathroom, SBA, to complete showering and dressing tasks. Pt received skilled instruction on incorporating AE in routine to increase IND in ADLs while maintaining back precautions (LHS, framing mill operator helper, and sock aide). Pt returned demonstration with LHS and sock aide, but had difficulty coordinating framing mill operator helper during dressing tasks. Pt was fatigued after shower, requiring short RBs while dressing. After completing tasks, pt walked back to recliner, SBA. Post tx, pt left in recliner with call light in reach and all needs met. Education OT Patient Education: Correct positioning, Energy conservation, Modified ADL techniques, Progress toward Goal/Update tx plan, Purpose of tx/functional activities, Reviewed precautions, Rehab process, Safety issues, Transfer techniques, Use of adapted equipment Teaching Recipient: Patient Teaching Methods: Demonstration, Discussion Response to Teaching: Verbalize Understanding, Return Demonstration OT Short Term Goals Short Term Goals Time Frame: Feb 27, 2022 Shower/bathe self: 4 Lower body dressin Putting on/taking off footwear: 3 OT Group Home Goals Charter Coach Driver Goals Time Frame: Mar 13, 2022 Eating (QC): 6 Oral Hygiene (QC): 6 Toileting Hygiene (QC): 6 Shower/Bathe Self (QC): 5 Upper Body Dressing (QC): 6 Lower Body Dressing (QC): 6 On/Off Footwear (QC): 6 Additional Goals: 1-Demonstrate ADL Tasks, 2-Verbalize Understanding, 3- ImproveStrength/Claudette 1=Demonstrate adherence to instructed precautions during ADL tasks. 2=Patient will verbalize/demonstrate understanding of assistive devices/modifications for ADL. 3=Patient will improve strength/tolerance for activity to enable patient to perform ADL's. OT Education/Plan Problem List/Assessment Assessment: Decreased Activ Tolerance, Decreased UE Strength, Impaired Funct Balance, Impaired I ADL's, Impaired Self-Care Skills Discharge Recommendations Plan/Recommendations: Continue POC Equpiment Recommendations-D/C: Hip Kit (with wide sock aide), Elastic Shoe Laces Treatment Plan/Plan of Care Patient would benefit from OT for education, treatment and training to promote i ndependence in ADL's, mobility, safety and/or upper extremity function for ADL's. Plan of Care: ADL Retraining, Functional Mobility, Group Exercise/Act as Ind, UE Funct Exercise/Act Treatment Duration: Mar 13, 2022 Frequency: At least 5 of 7 days/Wk (IRF) Estimated Hrs Per Day: 1.5 hours per day Rehab Potential: Fair Time/GCodes Start Time: 10:15 Stop Time: 11:15 Total Time Billed (hr/min): 60 Billed Treatment Time 1, ADL 4 (60') JASSON ROSDAO OT Feb 17, 2022 11:15
[2022-02-17] MEDS: polyethylene glycoL POWDER 17 GM (MIRALAX) PACK PO SCH ×2 (13:11→20:24)
[2022-02-17] MEDS: SENNA W/DOCUSATE (SENOKOT S) TABLET PO SCH ×2 (13:11→20:24)
[2022-02-17] MEDS: DOCUSATE SODIUM 100 MG (COLACE) CAP PO SCH ×2 (13:11→20:25)
--- NOTE | 2022-02-17 13:31 | Occupational Ther Daily Note ---
OT Current Status-Daily Note Subjective Pt seated in recliner finishing up lunch upon OT arrival, agreeable to tx. Pt says he is very tired. Mental Status/Objective Patient Orientation: Person, Place, Situation ADL-Treatment Therapy Code Descriptions/Definitions Functional [place] Measure: 0=Not Assessed/NA 4=Minimal Assistance 1=Total Assistance 5=Supervision or Setup 2=Maximal Assistance 6=Modified [place] 3=Moderate Assistance 7=Complete IndependenceSCALE: Activities may be completed with or without assistive devices. 1-Vovwvrqabl-aqxgixh completes the activity by him/herself with no assistance from a helper. 5-Set-up or Clean-up Assistance-helper sets up or cleans up; patient completes activity. [place] assists only prior to or following the activity. 4-Supervision or Touching Assistance-helper provides verbal cues and/or touching/steadying and/or contact guard assistance as patient completes activity. Assistance may be provided throughout the activity or intermittently. 3-Partial/Moderate Assistance-helper does LESS THAN HALF the effort. [place] lifts, holds or supports trunk or limbs, but provides less than half the effort. 2-Substantial/Maximal Assistance-helper does MORE THAN HALF the effort. [place] lifts or holds trunk or limbs and provides more than half the effort. 4-Xifhbfcls-sownzz does ALL the effort. Patient does none of the effort to complete the activity. Or, the assistance of 2 or more helpers is required for the patient to complete the activity. If activity was not attempted, code reason: 7-Patient Refused. 9-Not Applicable-not attempted and the patient did not perform the activity before the current illness, exacerbation or injury. 10-Not Attempted due to Environmental Limitations-(lack of equipment, weather restraints, etc.). 88-Not Attempted due to Medical Conditions or Safety Concerns. Oral Hygiene (QC): 4 (CGA for standing balance) Other Treatment Pt stood from recliner, CGA, and walked to bathroom, SBA. Pt stood at sink and completed oral care/grooming tasks. Pt required CGA when standing at sink to shave, slight loss of balance, but grabbed FWW to steady self. Clinician prompted pt to take seated RB after this, pt agreed. He started oral care while seated, and stood to spit in the sink. He [facility], [facility], and participated in dumbbell exercises to increase BUE strength and endurance needed for ADL tasks and functional transfers. He completed 2x10 sets of bicep curls and overhead presses with 3lb dumbbell, alternating between UEs. Post tx, pt left in recliner with call light in reach and all needs met. Education OT Patient Education: Correct positioning, Energy conservation, Exercise program, Modified ADL techniques, Progress toward Goal/Update tx plan, Purpose of tx/functional activities, Rehab process, Safety issues Teaching Recipient: Patient Teaching Methods: Discussion Response to Teaching: Verbalize Understanding OT Short Term Goals Short Term Goals Time Frame: Feb 27, 2022 Shower/bathe self: 4 Lower body dressin Putting on/taking off footwear: 3 OT Longterm Goals Longterm Goals Time Frame: Mar 13, 2022 Eating (QC): 6 Oral Hygiene (QC): 6 Toileting Hygiene (QC): 6 Shower/Bathe Self (QC): 5 Upper Body Dressing (QC): 6 Lower Body Dressing (QC): 6 On/Off Footwear (QC): 6 Additional Goals: 1-Demonstrate ADL Tasks, 2-Verbalize Understanding, 3- ImproveStrength/[place] 1=Demonstrate adherence to instructed precautions during ADL tasks. 2=Patient will verbalize/demonstrate understanding of assistive devices/modifications for ADL. 3=Patient will improve strength/tolerance for activity to enable patient to perform ADL's. OT Education/Plan Problem List/Assessment Assessment: Decreased Activ Tolerance, Decreased UE Strength, Impaired Funct Balance, Impaired I ADL's, Impaired Self-Care Skills Discharge Recommendations Plan/Recommendations: Continue POC Treatment Plan/Plan of Care Patient would benefit from OT for education, treatment and training to promote independence in ADL's, mobility, safety and/or upper extremity function for ADL's. Plan of Care: ADL Retraining, Functional Mobility, Group Exercise/Act as Ind, UE Funct Exercise/Act Treatment Duration: Mar 13, 2022 Frequency: At least 5 of 7 days/Wk (IRF) Estimated Hrs Per Day: 1.5 hours per day Rehab Potential: Fair Time/GCodes Start Time: 13:00 Stop Time: 13:30 Total Time Billed (hr/min): 30 Billed Treatment Time 1, ADL (20'), Ex (10') JASSON ROSADO OT Feb 17, 2022 13:31
--- NOTE | 2022-02-17 14:02 | Physical Therapy Daily Note ---
PT Daily Note-Current Subjective Pt sitting in recliner upon arrival. Pt agrees to PT but again reports fatigued this time citing just finished OT tx. Pain Numeric Pain Scale: 4 Location: Lower Location Body Site: Back Pain Description: Ache Mental Status Patient Orientation: Person, Place, Situation Attachments: Other-See Comments (TLSO Brace) Transfers SCALE: Activities may be completed with or without assistive devices. 5-Khwzvawoec-dfkurdz completes the activity by him/herself with no assistance from a helper. 5-Set-up or Clean-up Assistance-helper sets up or cleans up; patient completes activity. [place] assists only prior to or following the activity. 4-Supervision or Touching Assistance-helper provides verbal cues and/or touching/steadying and/or contact guard assistance as patient completes activity. Assistance may be provided throughout the activity or intermittently. 3-Partial/Moderate Assistance-helper does LESS THAN HALF the effort. [place] lifts, holds or supports trunk or limbs, but provides less than half the effort. 2-Substantial/Maximal Assistance-helper does MORE THAN HALF the effort. [place] lifts or holds trunk or limbs and provides more than half the effort. 2-Nhzbwirry-cvvkdu does ALL the effort. Patient does none of the effort to complete the activity. Or, the assistance of 2 or more helpers is required for the patient to complete the activity. If activity was not attempted, code reason: 7-Patient Refused. 9-Not Applicable-not attempted and the patient did not perform the activity before the current illness, exacerbation or injury. 10-Not Attempted due to Environmental Limitations-(lack of equipment, weather restraints, etc.). 88-Not Attempted due to Medical Conditions or Safety Concerns. Sit to Lying (QC): 3 Sit to Stand (QC): 4 Weight Bearing Full Weight Bearing Full Weight Bearing Treatments Pt completes Seated EX at recliner before asking to return to bed. Pt declines need for BR. TF to standing then EOB then Supine w/assistance to lift B LE. Pt resting in bed at end of tx with all needs met, call light in hand. Assessment Current Status: Fair Progress Fatigues easily. PT Handcrew Foreman Goals Senior Living Goals PT Handcrew Foreman Goals Time Frame: Mar 21, 2022 Roll Left & Right (QC): 6 Sit to Lying (QC): 6 Lying-Sitting on Side/Bed(QC): 6 Sit to Stand (QC): 6 Chair/Qyi-ms-Jcziw Xfer(QC): 6 Toilet Transfer (QC): 6 Car Transfer (QC): 6 Does the Patient Walk: Yes Walk 10 feet (QC): 6 Walk 50ft with 2 Turns (QC): 6 Walk 150 ft (QC): 6 Walking 10ft on Uneven Surface: 6 1 Step (curb) (QC): 4 4 Steps (QC): 4 12 Steps (QC): 88 Picking up an Object (QC): 6 Wheel 50 feet with 2 turns (QC: 9 Wheel 150 feet: 9 PT Plan Problem List Problem List: Activity Tolerance Treatment/Plan Treatment Plan: Continue Plan of Care Treatment Plan: Bed Mobility, Concurrent Therapy, Education, Functional Activity [place], Functional Strength, Group Therapy, Gait, Safety, Therapeutic Exercise, Transfers Treatment Duration: Mar 21, 2022 Frequency: At least 5 of 7 days/Wk (IRF) Estimated Hrs Per Day: 1.5 hours per day Patient and/or Family Agrees t: Yes Time/GCodes Time In: 1330 Time Out: 1400 Total Billed Treatment Time: 30 Total Billed Treatment 1, EX (20m) & FA (10m) SHANE MOY DYEING MACHINE TENDER Feb 17, 2022 14:02
[2022-02-17] MEDS: LORATADINE (CLARITIN) 10 MG TAB PO SCH (14:29)
[2022-02-17] MEDS ORDERED: AtorvaSTATin TABLET 10 MG TABLET PO SCH (18:00)
[2022-02-17 19:11] VITALS: BP 111/54
[2022-02-17] MEDS: TERAZOSIN 5 MG (HYTRIN) CAPSULE PO SCH (20:23)
[2022-02-17] MEDS: rOPINIRole 1 MG (REQUIP) TABLET PO SCH (20:24)
[2022-02-18] MEDS: PANTOPRAZOLE 40 MG (PROTONIX) TAB PO SCH (05:58)
[2022-02-18] MEDS: KCL 20 MEQ TAB (K-DUR) PO SCH (05:58)
--- NOTE | 2022-02-18 06:32 | PM&R Progress Note ---
Subjective HPI/CC On Admission Date Seen by Provider: Feb 18, 2022 Time Seen by Provider: 09:00 Subjective/Events-last exam 02/18/2022: Doing well Fever continues Walking better No falls Pain ok Hiccups continue and they had occurred following the last 2 spine surgeries so this is a chronic issue following anesthesia Reglan ordered along with Compazine at daughter request [place] complaints 02/17/2022: Doing well Hiccups persist Fever noted Peripheral smear ordered Pain controlled Review of Systems General: Fatigue, Malaise Musculoskeletal: back pain Neurological: Other (COOPER) hiccups Objective Exam Vital Signs Vital Signs Date Time Temp Pulse Resp B/P (MAP) Pulse Ox O2 Delivery O2 Flow Rate FiO2 02/19/22 01:34 38.3 02/18/22 21:05 Room Air 02/18/22 19:31 85 18 130/62 (84) 96 Capillary Refill : General Appearance: No Apparent Distress, WD/WN, Chronically ill HEENT: PERRL/EOMI, Normal ENT Inspection, Pharynx Normal Neck: Full Range of Motion, Normal Inspection, Non Tender, Supple, Carotid Bruit Respiratory: Chest Non Tender, Lungs Clear, Normal Breath Sounds, No Accessory Muscle Use, No Respiratory Distress Cardiovascular: Regular Rate, Rhythm, No Edema, No Gallop, No JVD, No Murmur, Normal Peripheral Pulses Gastrointestinal: Normal Bowel Sounds, No Organomegaly, No Pulsatile Mass, Non Tender, Soft Back: Normal Inspection, Decreased Range of Motion, Muscle Spasm, Vertebral Tenderness Extremity: Normal Capillary Refill, Normal Inspection, Normal Range of Motion, Non Tender, No Calf Tenderness, No Pedal Edema Neurologic/Psychiatric: Alert, Oriented x3, Normal Mood/Affect, infrastructure director II-XII Norm as Tested, Abnormal Gait, Motor Weakness (legs) Skin: Normal Color, Warm/Dry Lymphatic: No Adenopathy Results/Procedures Lab Patient resulted labs reviewed. FIM Transfers Therapy Code Descriptions/Definitions Functional [place] Measure: 0=Not Assessed/NA 4=Minimal Assistance 1=Total Assistance 5=Supervision or Setup 2=Maximal Assistance 6=Modified [place] 3=Moderate Assistance 7=Complete IndependenceSCALE: Activities may be completed with or without assistive devices. 1-Rynlonmrih-rhxzyag completes the activity by him/herself with no assistance from a helper. 5-Set-up or Clean-up Assistance-helper sets up or cleans up; patient completes activity. [place] assists only prior to or following the activity. 4-Supervision or Touching Assistance-helper provides verbal cues and/or touchin g/steadying and/or contact guard assistance as patient completes activity. Assistance may be provided throughout the activity or intermittently. 3-Partial/Moderate Assistance-helper does LESS THAN HALF the effort. [place] lifts, holds or supports trunk or limbs, but provides less than half the effort. 2-Substantial/Maximal Assistance-helper does MORE THAN HALF the effort. [place] lifts or holds trunk or limbs and provides more than half the effort. 4-Vzltnqhty-cwezqv does ALL the effort. Patient does none of the effort to complete the activity. Or, the assistance of 2 or more helpers is required for the patient to complete the activity. If activity was not attempted, code reason: 7-Patient Refused. 9-Not Applicable-not attempted and the patient did not perform the activity before the current illness, exacerbation or injury. 10-Not Attempted due to Environmental Limitations-(lack of equipment, weather restraints, etc.). 88-Not Attempted due to Medical Conditions or Safety Concerns. Roll Left to Right (QC): 5 Sit to Lying (QC): 3 Sit to Stand (QC): 4 Chair/Nkj-tt-Aczhy Xfer(QC): 4 Car Transfer (QC): 4 Gait Training Does the Patient Walk?: Yes Walk 10 feet (QC): 4 Walk 50 ft with 2 Turns(QC): 4 Walk 150 ft (QC): 4 Walking 10ft/uneven surface-QC: 4 Gait Assistive Device: FWW Wheelchair Training Does the Pt Use a Wheelchair?: No Wheel 50 ft with 2 turns (QC): 9 Wheel 150 ft (QC): 9 Stair Training #of Steps: 4 1 Step (curb) (QC): 3 4 Steps (QC): 3 12 Steps (QC): 88 Balance Picking up an Object (QC): 4 (manager ems) ADL-Treatment Eating (QC): 6 Oral Hygiene (QC): 4 (CGA for standing balance) Shower/Bathe Self (QC): 4 (SBA for standing balance when cleaning and drying buttocks/periarea) Upper Body Dressing (QC): 5 Lower Body Dressing (QC): 3 (Mod A to thread BLE into underwear and pants) On/Off Footwear (QC): 2 (Max A to don both gripper socks) Toileting Hygiene (QC): 4 (SBA for standing balance to hike pants) Assessment/Plan Assessment and Plan Assess & Plan/Chief Complaint Assessment: Lumbar stenosis POD # [address] Adams in [place] Post op fever CXR and KUB negative placed on Levaquin empirically Advanced age HTN HLP BPH OA RLS Neuropathy Migraines Post op hiccups (hx of this following the last 2 spine surgeries) placed on Baclofen then changed to Reglan and Compazine Plan: Monitor pain Baclofen for hiccups Levaquin empirically 02/17/2022: Monitor fever Levaquin 02/18/2022: Compazine and Reglan to replace Baclofen (1) Spinal stenosis, lumbar region with neurogenic claudication GEORGE OMER DO Feb 18, 2022 06:32
[2022-02-18] MEDS: SUMAtriptan 50 MG (IMITREX) TAB PO PRN ×2 (06:56→15:02)
[2022-02-18 07:26] VITALS: BP 139/63
[2022-02-18] MEDS: DOCUSATE SODIUM 100 MG (COLACE) CAP PO SCH ×2 (08:25→20:59)
[2022-02-18] MEDS: ONDANSETRON 4 MG (ZOFRAN) ORAL DISSOLVE TAB PO PRN ×2 (08:25→20:08)
[2022-02-18] MEDS: polyethylene glycoL POWDER 17 GM (MIRALAX) PACK PO SCH ×2 (08:25→20:59)
[2022-02-18] MEDS: SENNA W/DOCUSATE (SENOKOT S) TABLET PO SCH ×2 (08:26→20:59)
[2022-02-18] MEDS: GABAPENTIN 600 MG (NEURONTIN) TAB PO SCH ×3 (09:23→21:16)
[2022-02-18] MEDS: DIVALPROEX 250 MG DELAYED RELEASE (DEPAKOTE) TAB PO SCH ×3 (09:23→20:46)
[2022-02-18] MEDS ORDERED: PROCHLORPERAZINE 10 MG TAB (COMPAZINE) PO PRN (09:45)
--- NOTE | 2022-02-18 10:14 | Physical Therapy Daily Note ---
PT Daily Note-Current Subjective Pt R sidelying upon arrival. Pt reports headache & nauseated with silva next to him in case of need. Nurse gives nausea med. Pt agrees to PT as he can tolerate. Pain Location Body Site: Head Pain Description: Ache Comment: Reports but doesn't rate Mental Status Patient Orientation: Person, Place, Time, Situation Attachments: Other-See Comments (TLSO Brace) Transfers SCALE: Activities may be completed with or without assistive devices. 2-Mxtrraxwqy-farrvwl completes the activity by him/herself with no assistance from a helper. 5-Set-up or Clean-up Assistance-helper sets up or cleans up; patient completes activity. [place] assists only prior to or following the activity. 4-Supervision or Touching Assistance-helper provides verbal cues and/or touching/steadying and/or contact guard assistance as patient completes activity. Assistance may be provided throughout the activity or intermittently. 3-Partial/Moderate Assistance-helper does LESS THAN HALF the effort. [place] lifts, holds or supports trunk or limbs, but provides less than half the effort. 2-Substantial/Maximal Assistance-helper does MORE THAN HALF the effort. [place] lifts or holds trunk or limbs and provides more than half the effort. 0-Njqfyzemh-dnkxim does ALL the effort. Patient does none of the effort to complete the activity. Or, the assistance of 2 or more helpers is required for the patient to complete the activity. If activity was not attempted, code reason: 7-Patient Refused. 9-Not Applicable-not attempted and the patient did not perform the activity before the current illness, exacerbation or injury. 10-Not Attempted due to Environmental Limitations-(lack of equipment, weather restraints, etc.). 88-Not Attempted due to Medical Conditions or Safety Concerns. Sit to Stand (QC): 4 Weight Bearing Full Weight Bearing Full Weight Bearing Gait Training Does the Patient Walk?: Yes Distance: 5' Gait Assistive Device: FWW Exercises Supine Ex: Ankle pumps, Quad Set, Glut sets, Heel Slides, Short Arc Quads, Straight leg raise, Hip abd/add Supine Reps: 15 Treatments Pt was given Nausea med to begin tx. Pt completes Supine EX w/several RB as needed for fatigue and pain & nausea. Pt TF to EOB and dons TLSO Brace as well as shoes. Pt then TF to recliner after declining need for BR. Pt resting at end of tx with all needs met, call light in hand. Assessment Current Status: Fair Progress Nausea and pain limit tx this morning. PT Tool Sharpener Goals Tool Sharpener Goals PT Tool Sharpener Goals Time Frame: Mar 21, 2022 Roll Left & Right (QC): 6 Sit to Lying (QC): 6 Lying-Sitting on Side/Bed(QC): 6 Sit to Stand (QC): 6 Chair/Yue-yq-Xhbsz Xfer(QC): 6 Toilet Transfer (QC): 6 Car Transfer (QC): 6 Does the Patient Walk: Yes Walk 10 feet (QC): 6 Walk 50ft with 2 Turns (QC): 6 Walk 150 ft (QC): 6 Walking 10ft on Uneven Surface: 6 1 Step (curb) (QC): 4 4 Steps (QC): 4 12 Steps (QC): 88 Picking up an Object (QC): 6 Wheel 50 feet with 2 turns (QC: 9 Wheel 150 feet: 9 PT Plan Problem List Problem List: Activity Tolerance, Functional Strength Treatment/Plan Treatment Plan: Continue Plan of Care Treatment Plan: Bed Mobility, Concurrent Therapy, Education, Functional Activity Claudette, Functional Strength, Group Therapy, Gait, Safety, Therapeutic Exercise, Transfers Treatment Duration: Mar 21, 2022 Frequency: At least 5 of 7 days/Wk (IRF) Estimated Hrs Per Day: 1.5 hours per day Patient and/or Family Agrees t: Yes Safety Risks/Education Patient Education: Transfer Techniques, Correct Positioning Teaching Recipient: Patient Teaching Methods: Discussion Response to Teaching: Verbalize Understanding Time/GCodes Time In: 800 Time Out: 900 Total Billed Treatment Time: 60 Total Billed Treatment 1, EX x2 (30m) & FA x2 (30m) SHANE MOY HEALTH SAFETY COORDINATOR Feb 18, 2022 10:14
--- NOTE | 2022-02-18 10:41 | Occupational Ther Daily Note ---
OT Current Status-Daily Note Subjective Pt sitting in recliner upon OT arrival, agreeable to tx. Pt c/o headache and nausea and rates his pain 5/10 at beginning of session, ended session with 6/10. Mental Status/Objective Patient Orientation: Person, Place, Situation ADL-Treatment Therapy Code Descriptions/Definitions Functional [place] Measure: 0=Not Assessed/NA 4=Minimal Assistance 1=Total Assistance 5=Supervision or Setup 2=Maximal Assistance 6=Modified [place] 3=Moderate Assistance 7=Complete IndependenceSCALE: Activities may be completed with or without assistive devices. 3-Bdvgnzobez-qtpmejs completes the activity by him/herself with no assistance from a helper. 5-Set-up or Clean-up Assistance-helper sets up or cleans up; patient completes activity. [place] assists only prior to or following the activity. 4-Supervision or Touching Assistance-helper provides verbal cues and/or touching/steadying and/or contact guard assistance as patient completes activity. Assistance may be provided throughout the activity or intermittently. 3-Partial/Moderate Assistance-helper does LESS THAN HALF the effort. [place] lifts, holds or supports trunk or limbs, but provides less than half the effort. 2-Substantial/Maximal Assistance-helper does MORE THAN HALF the effort. [place] lifts or holds trunk or limbs and provides more than half the effort. 0-Zuiikvsud-twofrp does ALL the effort. Patient does none of the effort to complete the activity. Or, the assistance of 2 or more helpers is required for the patient to complete the activity. If activity was not attempted, code reason: 7-Patient Refused. 9-Not Applicable-not attempted and the patient did not perform the activity before the current illness, exacerbation or injury. 10-Not Attempted due to Environmental Limitations-(lack of equipment, weather restraints, etc.). 88-Not Attempted due to Medical Conditions or Safety Concerns. Upper Body Dressing (QC): 5 (sitting in recliner) Lower Body Dressing (QC): 3 (Min A to thread BLE through brief and pants, CGA for balance during hike) On/Off Footwear: 3 (Min A to tie tennis shoes. IND doffed and donned socks with sock aide) Other Treatment Pt declined showering today d/t nausea and headache, so he completed dressing while seated in recliner. Pt shows good recall of skilled instruction over AE from yesterday's therapy session, using both the sock aide and dairy farm worker appropriately during LBD and footwear. Pt introduced to long-handled shoe horn vs shoe funnel. He reports using metal long-handled shoe horn at home, but ARU's is "too flimsy," so he prefers the shoe horn to help don tennis shoes. Pt stood from recliner, [facility], and used FWW to walk to therapy gym, [facility]. He completed 10min sitting at the arm bike (10 walters resistance) and then he completed the nuts and bolts board while seated with 2lb wrist weights. Pt stood at therapy mat and played card game with clinician, standing ~5mins before requesting to sit d/t back pain. All activities designed to increase pt's activity tolerance and functional standing endurance. Pt used FWW to walk back to room, CGA d/t increased back pain. Pt returned to recliner and stated that he was "seeing white spots," nurse notified. Post tx, pt left in recliner with call light in reach and all needs met. Education OT Patient Education: Correct positioning, Energy conservation, Exercise program, Modified ADL techniques, Progress toward Goal/Update tx plan, Purpose of tx/functional activities, Reviewed precautions, Rehab process, Safety issues, Use of adapted equipment Teaching Recipient: Patient Teaching Methods: Demonstration, Discussion Response to Teaching: Verbalize Understanding, Return Demonstration OT Short Term Goals Short Term Goals Time Frame: Feb 27, 2022 Shower/bathe self: 4 Lower body dressin Putting on/taking off footwear: 3 OT Disaster Recovery Coordinator Goals Fdc Goals Time Frame: Mar 13, 2022 Eating (QC): 6 Oral Hygiene (QC): 6 Toileting Hygiene (QC): 6 Shower/Bathe Self (QC): 5 Upper Body Dressing (QC): 6 Lower Body Dressing (QC): 6 On/Off Footwear (QC): 6 Additional Goals: 1-Demonstrate ADL Tasks, 2-Verbalize Understanding, 3-ImproveStrength/[place] 1=Demonstrate adherence to instructed precautions during ADL tasks. 2=Patient will verbalize/demonstrate understanding of assistive devices/modifications for ADL. 3=Patient will improve strength/tolerance for activity to enable patient to perform ADL's. OT Education/Plan Problem List/Assessment Assessment: Decreased Activ Tolerance, Decreased UE Strength, Impaired Funct Balance, Impaired I ADL's, Impaired Self-Care Skills Discharge Recommendations Plan/Recommendations: Continue POC Treatment Plan/Plan of Care Patient would benefit from OT for education, treatment and training to promote independence in ADL's, mobility, safety and/or upper extremity function for ADL's. Plan of Care: ADL Retraining, Functional Mobility, Group Exercise/Act as Ind, UE Funct Exercise/Act Treatment Duration: Mar 13, 2022 Frequency: At least 5 of 7 days/Wk (IRF) Estimated Hrs Per Day: 1.5 hours per day Rehab Potential: Fair Time/GCodes Start Time: 09:30 Stop Time: 11:00 Total Time Billed (hr/min): 90 Billed Treatment Time 1, ADL 2 (30'), Ex (10'), FA 3 (50') JASSON ROSADO OT Feb 18, 2022 10:41
[2022-02-18] MEDS: METOCLOPRAMIDE 10 MG (REGLAN) TAB PO SCH ×3 (13:04→20:45)
[2022-02-18] MEDS: LORATADINE (CLARITIN) 10 MG TAB PO SCH (13:04)
--- NOTE | 2022-02-18 14:23 | Physical Therapy Daily Note ---
PT Daily Note-Current Subjective Pt sitting in recliner upon arrival. Pt agrees to PT. Mental Status Patient Orientation: Person, Place, Time, Situation Attachments: Other-See Comments (TLSO Brace) Transfers SCALE: Activities may be completed with or without assistive devices. 6-Dwnaygroql-jfffkwp completes the activity by him/herself with no assistance from a helper. 5-Set-up or Clean-up Assistance-helper sets up or cleans up; patient completes activity. [place] assists only prior to or following the activity. 4-Supervision or Touching Assistance-helper provides verbal cues and/or touching/steadying and/or contact guard assistance as patient completes activity. Assistance may be provided throughout the activity or intermittently. 3-Partial/Moderate Assistance-helper does LESS THAN HALF the effort. [place] lifts, holds or supports trunk or limbs, but provides less than half the effort. 2-Substantial/Maximal Assistance-helper does MORE THAN HALF the effort. [place] lifts or holds trunk or limbs and provides more than half the effort. 7-Wknzrbise-drfuna does ALL the effort. Patient does none of the effort to complete the activity. Or, the assistance of 2 or more helpers is required for the patient to complete the activity. If activity was not attempted, code reason: 7-Patient Refused. 9-Not Applicable-not attempted and the patient did not perform the activity before the current illness, exacerbation or injury. 10-Not Attempted due to Environmental Limitations-(lack of equipment, weather restraints, etc.). 88-Not Attempted due to Medical Conditions or Safety Concerns. Sit to Stand (QC): 4 Weight Bearing Full Weight Bearing Full Weight Bearing Gait Training Does the Patient Walk?: Yes Distance: 150' x2 Walk 10 feet (QC): 5 Walk 50 ft with 2 Turns(QC): 5 Walk 150 ft (QC): 5 Gait Assistive Device: FWW Treatments Pt declines need for BR. TF to standing and amb. in hallway before returning to room to rest Supine in bed. All needs met, call light in hand. Assessment Current Status: Good Progress Pt able to work through limitations of pain & nausea better this afternoon than morning tx. Pt still fatigues and needs occasional RB. PT Senior Care Goals Senior Care Goals PT Piano Builder Goals Time Frame: Mar 21, 2022 Roll Left & Right (QC): 6 Sit to Lying (QC): 6 Lying-Sitting on Side/Bed(QC): 6 Sit to Stand (QC): 6 Chair/Wjz-yv-Srlvq Xfer(QC): 6 Toilet Transfer (QC): 6 Car Transfer (QC): 6 Does the Patient Walk: Yes Walk 10 feet (QC): 6 Walk 50ft with 2 Turns (QC): 6 Walk 150 ft (QC): 6 Walking 10ft on Uneven Surface: 6 1 Step (curb) (QC): 4 4 Steps (QC): 4 12 Steps (QC): 88 Picking up an Object (QC): 6 Wheel 50 feet with 2 turns (QC: 9 Wheel 150 feet: 9 PT Plan Problem List Problem List: Activity Tolerance Treatment/Plan Treatment Plan: Continue Plan of Care Treatment Plan: Bed Mobility, Concurrent Therapy, Education, Functional Activity [place], Functional Strength, Group Therapy, Gait, Safety, Therapeutic Exercise, Transfers Treatment Duration: Mar 21, 2022 Frequency: At least 5 of 7 days/Wk (IRF) Estimated Hrs Per Day: 1.5 hours per day Patient and/or Family Agrees t: Yes Time/GCodes Time In: 1300 Time Out: 1330 Total Billed Treatment Time: 30 Total Billed Treatment 1, GT x2 (30m) SHANE MOY BOAT ENGINE MECHANIC Feb 18, 2022 14:23
[2022-02-18] MEDS: ACETAMINOPHEN 325 MG TABLET PO PRN (15:02)
[2022-02-18 19:31] VITALS: BP 130/62
[2022-02-18] MEDS: TERAZOSIN 5 MG (HYTRIN) CAPSULE PO SCH (20:45)
[2022-02-18] MEDS: rOPINIRole 1 MG (REQUIP) TABLET PO SCH (20:45)
[2022-02-19] MEDS: SUMAtriptan 50 MG (IMITREX) TAB PO PRN (01:33)
[2022-02-19] MEDS: ACETAMINOPHEN 325 MG TABLET PO PRN ×3 (01:34→21:56)
--- NOTE | 2022-02-19 05:55 | PM&R Progress Note ---
Subjective HPI/CC On Admission Date Seen by Provider: Feb 19, 2022 Time Seen by Provider: 12:00 Subjective/Events-last exam 02/19/2022: Doing much better Hiccups are less frequent Fever is better Antibiotics maintained 02/18/2022: Doing well Fever continues Walking better No falls Pain ok Hiccups continue and they had occurred following the last 2 spine surgeries so this is a chronic issue following anesthesia Reglan ordered along with Compazine at daughter request [place] complaints 02/17/2022: Doing well Hiccups persist Fever noted Peripheral smear ordered Pain controlled Review of Systems General: Fatigue, Malaise Musculoskeletal: back pain hiccups Objective Exam Vital Signs Vital Signs Date Time Temp Pulse Resp B/P (MAP) Pulse Ox O2 Delivery O2 Flow Rate FiO2 02/19/22 19:44 38.4 97 20 127/61 (83) 94 Room Air Capillary Refill : General Appearance: No Apparent Distress, WD/WN, Chronically ill HEENT: PERRL/EOMI, Normal ENT Inspection, Pharynx Normal Neck: Full Range of Motion, Normal Inspection, Non Tender, Supple, Carotid Bruit Respiratory: Chest Non Tender, Lungs Clear, Normal Breath Sounds, No Accessory Muscle Use, No Respiratory Distress Cardiovascular: Regular Rate, Rhythm, No Edema, No Gallop, No JVD, No Murmur, Normal Peripheral Pulses Gastrointestinal: Normal Bowel Sounds, No Organomegaly, No Pulsatile Mass, Non Tender, Soft Back: Normal Inspection, Decreased Range of Motion, Muscle Spasm, Vertebral Tenderness Extremity: Normal Capillary Refill, Normal Inspection, Normal Range of Motion, Non Tender, No Calf Tenderness, No Pedal Edema Neurologic/Psychiatric: Alert, Oriented x3, Normal Mood/Affect, stores laborer II-XII Norm as Tested, Abnormal Gait, Motor Weakness (legs) Skin: Normal Color, Warm/Dry Lymphatic: No Adenopathy Results/Procedures Lab Laboratory Tests 02/19/22 06:18 Patient resulted labs reviewed. FIM Transfers Therapy Code Descriptions/Definitions Functional [place] Measure: 0=Not Assessed/NA 4=Minimal Assistance 1=Total Assistance 5=Supervision or Setup 2=Maximal Assistance 6=Modified [place] 3=Moderate Assistance 7=Complete IndependenceSCALE: Activities may be completed with or without assistive devices. 3-Yvwgfzjvrp-ieuqofr completes the activity by him/herself with no assistance from a helper. 5-Set-up or Clean-up Assistance-helper sets up or cleans up; patient completes activity. [place] assists only prior to or following the activity. 4-Supervision or Touching Assistance-helper provides verbal cues and/or touching/steadying and/or contact guard assistance as patient completes activity. Assistance may be provided throughout the activity or intermittently. 3-Partial/Moderate Assistance-helper does LESS THAN HALF the effort. [place] lifts, holds or supports trunk or limbs, but provides less than half the effort. 2-Substantial/Maximal Assistance-helper does MORE THAN HALF the effort. [place] lifts or holds trunk or limbs and provides more than half the effort. 6-Hkgkidrdj-iykquv does ALL the effort. Patient does none of the effort to complete the activity. Or, the assistance of 2 or more helpers is required for the patient to complete the activity. If activity was not attempted, code reason: 7-Patient Refused. 9-Not Applicable-not attempted and the patient did not perform the activity before the current illness, exacerbation or injury. 10-Not Attempted due to Environmental Limitations-(lack of equipment, weather restraints, etc.). 88-Not Attempted due to Medical Conditions or Safety Concerns. Roll Left to Right (QC): 5 Sit to Lying (QC): 3 Sit to Stand (QC): 4 Chair/Pmx-uf-Zbgaa Xfer(QC): 4 Car Transfer (QC): 4 Gait Training Does the Patient Walk?: Yes Distance: 150' x2 Walk 10 feet (QC): 5 Walk 50 ft with 2 Turns(QC): 5 Walk 150 ft (QC): 5 Walking 10ft/uneven surface-QC: 4 Gait Assistive Device: FWW Wheelchair Training Does the Pt Use a Wheelchair?: No Wheel 50 ft with 2 turns (QC): 9 Wheel 150 ft (QC): 9 Stair Training #of Steps: 4 1 Step (curb) (QC): 3 4 Steps (QC): 3 12 Steps (QC): 88 Balance Picking up an Object (QC): 4 (storm door maker) ADL-Treatment Eating (QC): 6 Oral Hygiene (QC): 4 (CGA for standing balance) Shower/Bathe Self (QC): 4 (SBA for standing balance when cleaning and drying buttocks/periarea) Upper Body Dressing (QC): 5 (sitting in recliner) Lower Body Dressing (QC): 3 (Min A to thread BLE through brief and pants, CGA for balance during hike) On/Off Footwear (QC): 3 (Min A to tie tennis shoes. IND doffed and donned socks with sock aide) Toileting Hygiene (QC): 4 (SBA for standing balance to hike pants) Assessment/Plan Assessment and Plan Assess & Plan/Chief Complaint Assessment: Lumbar stenosis POD # [address] [place] Post op fever CXR and KUB negative placed on Levaquin empirically Advanced age HTN HLP BPH OA RLS Neuropathy Migraines Post op hiccups (hx of this following the last 2 spine surgeries) placed on Baclofen then changed to Reglan and Compazine Plan: Monitor pain Baclofen for hiccups Levaquin empirically 02/17/2022: Monitor fever Levaquin 02/18/2022: Compazine and Reglan to replace Baclofen 02/19/2022: Monitor fever (1) Spinal stenosis, lumbar region with neurogenic claudication GEORGE OMER DO Feb 19, 2022 05:55
[2022-02-19] MEDS: METOCLOPRAMIDE 10 MG (REGLAN) TAB PO SCH ×4 (05:59→20:07)
[2022-02-19] MEDS: KCL 20 MEQ TAB (K-DUR) PO SCH (06:00)
[2022-02-19] MEDS: PANTOPRAZOLE 40 MG (PROTONIX) TAB PO SCH (06:00)
[2022-02-19 06:40] LABS: BASOPHILS % (AUTO) 0 % (0-10); EOSINOPHILS # (AUTO) 0.2 10^3/uL (0.0-0.3); EOSINOPHILS % (AUTO) 7 % (0-10); HEMATOCRIT 31 % (40-54); HEMOGLOBIN 9.9 g/dL (13.3-17.7); LYMPHOCYTES # (AUTO) 0.7 10^3/uL (1.0-4.0); LYMPHOCYTES % (AUTO) 23 % (12-44); MEAN CORPUSCULAR HEMOGLOBIN 29 pg (25-34); MEAN CORPUSCULAR HGB CONC 32 g/dL (32-36); MEAN CORPUSCULAR VOLUME 93 fL (80-99); MEAN PLATELET VOLUME 9.6 fL (9.0-12.2); MONOCYTES # (AUTO) 0.4 10^3/uL (0.0-1.0); MONOCYTES % (AUTO) 12 % (0-12); NEUTROPHILS # (AUTO) 1.6 10^3/uL (1.8-7.8); NEUTROPHILS % (AUTO) 57 % (42-75); PLATELET COUNT 160 10^3/uL (130-400); WHITE BLOOD COUNT 2.9 10^3/uL (4.3-11.0)
[2022-02-19 06:51] LABS: ALBUMIN 3.3 GM/DL (3.2-4.5); POTASSIUM 3.8 MMOL/L (3.6-5.0)
[2022-02-19 06:52] LABS: CALCIUM 8.7 MG/DL (8.5-10.1)
[2022-02-19 06:53] LABS: TOTAL PROTEIN 6.5 GM/DL (6.4-8.2)
[2022-02-19 06:55] LABS: BILIRUBIN,TOTAL 0.6 MG/DL (0.1-1.0)
[2022-02-19 06:57] LABS: CREATININE SERUM 1.02 MG/DL (0.60-1.30)
[2022-02-19 07:34] VITALS: BP 112/55
[2022-02-19] MEDS: DOCUSATE SODIUM 100 MG (COLACE) CAP PO SCH ×2 (08:56→20:07)
[2022-02-19] MEDS: SENNA W/DOCUSATE (SENOKOT S) TABLET PO SCH ×2 (08:57→20:07)
[2022-02-19] MEDS: GABAPENTIN 600 MG (NEURONTIN) TAB PO SCH ×3 (08:57→20:08)
[2022-02-19] MEDS: DIVALPROEX 250 MG DELAYED RELEASE (DEPAKOTE) TAB PO SCH ×3 (08:57→20:07)
--- NOTE | 2022-02-19 08:58 | Physical Therapy Daily Note ---
PT Daily Note-Current Subjective Pt. agrees to Rx, sitting EOB on arrival, c/o tired of hiccups. Rates LBP at 5/10 Pain Numeric Pain Scale: 5-Moderate Pain Location: Medial Location Body Site: Back Pain Description: Ache Mental Status Patient Orientation: Normal For Age Attachments: Other-See Comments (back brace) Transfers SCALE: Activities may be completed with or without assistive devices. 2-Ddvtyadrka-okscgwl completes the activity by him/herself with no assistance from a helper. 5-Set-up or Clean-up Assistance-helper sets up or cleans up; patient completes activity. [place] assists only prior to or following the activity. 4-Supervision or Touching Assistance-helper provides verbal cues and/or touching/steadying and/or contact guard assistance as patient completes activity. Assistance may be provided throughout the activity or intermittently. 3-Partial/Moderate Assistance-helper does LESS THAN HALF the effort. [place] lifts, holds or supports trunk or limbs, but provides less than half the effort. 2-Substantial/Maximal Assistance-helper does MORE THAN HALF the effort. [place] lifts or holds trunk or limbs and provides more than half the effort. 3-Ttfamzprl-qafdwt does ALL the effort. Patient does none of the effort to complete the activity. Or, the assistance of 2 or more helpers is required for the patient to complete the activity. If activity was not attempted, code reason: 7-Patient Refused. 9-Not Applicable-not attempted and the patient did not perform the activity before the current illness, exacerbation or injury. 10-Not Attempted due to Environmental Limitations-(lack of equipment, weather restraints, etc.). 88-Not Attempted due to Medical Conditions or Safety Concerns. Sit to Stand (QC): 4 Chair/Bsf-uu-Qdmkz Xfer(QC): 4 sit to stand from bed, Nustep and recliner all CGA to SBA Weight Bearing Full Weight Bearing Full Weight Bearing Gait Training Does the Patient Walk?: Yes Walk 10 feet (QC): 4 Walk 50 ft with 2 Turns(QC): 4 Walk 150 ft (QC): 4 Gait Persons Needed: 1 Gait Assistive Device: FWW slow, moderate wt bearing on FWW, occas narrowed ARNAUD Exercises Seated Therapy Exercises: Ankle pumps, Sit to stand, Long arc quads, Hip flexion, Hip abd/add Seated Reps: 12 NuStep Minutes: 10 NuStep Workload: 1 Treatments LE ex, TRFs, gait, donning back brace indep Assessment Current Status: Good Progress PT R D Manager Goals R D Manager Goals PT Senior Care Goals Time Frame: Mar 21, 2022 Roll Left & Right (QC): 6 Sit to Lying (QC): 6 Lying-Sitting on Side/Bed(QC): 6 Sit to Stand (QC): 6 Chair/Hbi-va-Xpfgt Xfer(QC): 6 Toilet Transfer (QC): 6 Car Transfer (QC): 6 Does the Patient Walk: Yes Walk 10 feet (QC): 6 Walk 50ft with 2 Turns (QC): 6 Walk 150 ft (QC): 6 Walking 10ft on Uneven Surface: 6 1 Step (curb) (QC): 4 4 Steps (QC): 4 12 Steps (QC): 88 Picking up an Object (QC): 6 Wheel 50 feet with 2 turns (QC: 9 Wheel 150 feet: 9 PT Plan Treatment/Plan Treatment Plan: Continue Plan of Care Treatment Plan: Bed Mobility, Concurrent Therapy, Education, Functional Activity [place], Functional Strength, Group Therapy, Gait, Safety, Therapeutic Ex ercise, Transfers Treatment Duration: Mar 21, 2022 Frequency: At least 5 of 7 days/Wk (IRF) Estimated Hrs Per Day: 1.5 hours per day Patient and/or Family Agrees t: Yes Safety Risks/Education Patient Education: Gait Training, Transfer Techniques, Correct Positioning, Disease Process, Safety Issues Teaching Recipient: Patient Teaching Methods: Demonstration, Discussion Response to Teaching: Verbalize Understanding, Return Demonstration, Reinforcement Needed Time/GCodes Time In: 800 Time Out: 900 Total Billed Treatment Time: 60 Total Billed Treatment 1,FA15m,EX30m,GT15m HALI GRACIA LEAD BI DEVELOPER Feb 19, 2022 08:58
[2022-02-19] MEDS: polyethylene glycoL POWDER 17 GM (MIRALAX) PACK PO SCH ×2 (09:00→20:08)
--- NOTE | 2022-02-19 11:07 | Occupational Ther Daily Note ---
OT Current Status-Daily Note Subjective Pt seated in recliner upon OT arrival, agreeable to tx. He rates his pain at 5/10 at beginning of session, increasing to 6.5/10 pain at the end of session. Mental Status/Objective Patient Orientation: Person, Place, Situation ADL-Treatment Therapy Code Descriptions/Definitions Functional [place] Measure: 0=Not Assessed/NA 4=Minimal Assistance 1=Total Assistance 5=Supervision or Setup 2=Maximal Assistance 6=Modified [place] 3=Moderate Assistance 7=Complete IndependenceSCALE: Activities may be completed with or without assistive devices. 7-Bvluygpgdf-vlybhad completes the activity by him/herself with no assistance from a helper. 5-Set-up or Clean-up Assistance-helper sets up or cleans up; patient completes activity. [place] assists only prior to or following the activity. 4-Supervision or Touching Assistance-helper provides verbal cues and/or touching/steadying and/or contact guard assistance as patient completes activity. Assistance may be provided throughout the activity or intermittently. 3-Partial/Moderate Assistance-helper does LESS THAN HALF the effort. [place] lifts, holds or supports trunk or limbs, but provides less than half the effort. 2-Substantial/Maximal Assistance-helper does MORE THAN HALF the effort. [place] lifts or holds trunk or limbs and provides more than half the effort. 5-Ecrkfeegh-yyznnv does ALL the effort. Patient does none of the effort to complete the activity. Or, the assistance of 2 or more helpers is required for the patient to complete the activity. If activity was not attempted, code reason: 7-Patient Refused. 9-Not Applicable-not attempted and the patient did not perform the activity before the current illness, exacerbation or injury. 10-Not Attempted due to Environmental Limitations-(lack of equipment, weather restraints, etc.). 88-Not Attempted due to Medical Conditions or Safety Concerns. Oral Hygiene (QC): 4 (SBA standing at sink) Shower/Bathe Self (QC): 4 (SBA for standing balance while cleaning buttocks/periarea.) Upper Body Dressing (QC): 5 Lower Body Dressing (QC): 4 (SBA for standing balance during hike. Can doff and thread BLE through brief and pants with set up) On/Off Footwear: 3 (Min A d/t heel of shoe folding. doffed/donned socks and threading through slippers with set up) Toileting Hygiene (QC): 4 (SBA for standing pant hike) [facility], [facility] to complete showering, dressing, toileting, and oral care tasks. Pt appeared to handle ADL tasks well today, becoming more efficient using AE during dressing tasks. OT provided education about the importance of engaging in ADLs to improve activity tolerance needed to complete tasks once he returns home, pt verbalized understanding. Pt walked to therapy gym, [facility], and participated in dowel tiny exercises to increase BUE strength and endurance needed for ADLs and functional transfers. A dowel tiny was placed across the parallel bars and a Theraband was used to provide appropriate resistance. He completed 3x15 of chest presses (with yellow Theraband, light resistance) and modified rows (with green Theraband, mod resistance), RBs in between each set. To increase standing activity tolerance and functional balance, pt stood at therapy mat and sorted cards, reaching in all planes, [facility]. Pt required v/c's to adhere to back precautions during activity. Pt's pain level increased to 6.5/10 after standing activity, but [facility], pt left in recliner with call light in reach and all needs met. Education OT Patient Education: Correct positioning, Energy conservation, Exercise program, Modified ADL techniques, Progress toward Goal/Update tx plan, Purpose of tx/functional activities, Reviewed precautions, Rehab process, Safety issues, Use of adapted equipment Teaching Recipient: Patient Teaching Methods: Discussion Response to Teaching: Verbalize Understanding OT Short Term Goals Short Term Goals Time Frame: Feb 27, 2022 Shower/bathe self: 4 Lower body dressin Putting on/taking off footwear: 3 OT Snf Goals Snf Goals Time Frame: Mar 13, 2022 Eating (QC): 6 Oral Hygiene (QC): 6 Toileting Hygiene (QC): 6 Shower/Bathe Self (QC): 5 Upper Body Dressing (QC): 6 Lower Body Dressing (QC): 6 On/Off Footwear (QC): 6 Additional Goals: 1-Demonstrate ADL Tasks, 2-Verbalize Understanding, 3- ImproveStrength/Claudette 1=Demonstrate adherence to instructed precautions during ADL tasks. 2=Patient will verbalize/demonstrate understanding of assistive devices/modifications for ADL. 3=Patient will improve strength/tolerance for activity to enable patient to perform ADL's. OT Education/Plan Problem List/Assessment Assessment: Decreased Activ Tolerance, Decreased UE Strength, Impaired Funct Balance, Impaired I ADL's, Impaired Self-Care Skills Discharge Recommendations Plan/Recommendations: Continue POC Treatment Plan/Plan of Care Patient would benefit from OT for education, treatment and training to promote independence in ADL's, mobility, safety and/or upper extremity function for ADL's. Plan of Care: ADL Retraining, Functional Mobility, Group Exercise/Act as Ind, UE Funct Exercise/Act Treatment Duration: Mar 13, 2022 Frequency: At least 5 of 7 days/Wk (IRF) Estimated Hrs Per Day: 1.5 hours per day Rehab Potential: Fair Time/GCodes Start Time: 09:30 Stop Time: 11:00 Total Time Billed (hr/min): 90 Billed Treatment Time 1, ADL 3 (45'), Ex 2 (35'), FA (10') JASSON ROSADO OT Feb 19, 2022 11:07
--- NOTE | 2022-02-19 12:01 | Physical Therapy Daily Note ---
PT Daily Note-Current Subjective Pt. up in recliner agrees to Rx, states he will go home in a [employer] SUV. Pain Location: No Pain Reported Mental Status Patient Orientation: Normal For Age Attachments: Other-See Comments (back brace) Transfers SCALE: Activities may be completed with or without assistive devices. 4-Bxygbyyypj-wpvzkur completes the activity by him/herself with no assistance from a helper. 5-Set-up or Clean-up Assistance-helper sets up or cleans up; patient completes activity. [place] assists only prior to or following the activity. 4-Supervision or Touching Assistance-helper provides verbal cues and/or touching/steadying and/or contact guard assistance as patient completes activity. Assistance may be provided throughout the activity or intermittently. 3-Partial/Moderate Assistance-helper does LESS THAN HALF the effort. [place] lifts, holds or supports trunk or limbs, but provides less than half the effort. 2-Substantial/Maximal Assistance-helper does MORE THAN HALF the effort. [place] lifts or holds trunk or limbs and provides more than half the effort. 1-Efiygntuo-svekkj does ALL the effort. Patient does none of the effort to complete the activity. Or, the assistance of 2 or more helpers is required for the patient to complete the activity. If activity was not attempted, code reason: 7-Patient Refused. 9-Not Applicable-not attempted and the patient did not perform the activity before the current illness, exacerbation or injury. 10-Not Attempted due to Environmental Limitations-(lack of equipment, weather restraints, etc.). 88-Not Attempted due to Medical Conditions or Safety Concerns. all sit to stand SBA, in out car SBA Weight Bearing Full Weight Bearing Full Weight Bearing Gait Training Does the Patient Walk?: Yes Gait Assistive Device: FWW 125 ft x 2 SBA to CGA no LOB, slow Exercises Seated Therapy Exercises: Ankle pumps, Sit to stand, Long arc quads, Hip abd/add Seated Reps: 10 Assessment Current Status: Good Progress PT Mcfp Goals Gis Software Engineer Goals PT Mcfp Goals Time Frame: Mar 21, 2022 Roll Left & Right (QC): 6 Sit to Lying (QC): 6 Lying-Sitting on Side/Bed(QC): 6 Sit to Stand (QC): 6 Chair/Vjg-ke-Lvdua Xfer(QC): 6 Toilet Transfer (QC): 6 Car Transfer (QC): 6 Does the Patient Walk: Yes Walk 10 feet (QC): 6 Walk 50ft with 2 Turns (QC): 6 Walk 150 ft (QC): 6 Walking 10ft on Uneven Surface: 6 1 Step (curb) (QC): 4 4 Steps (QC): 4 12 Steps (QC): 88 Picking up an Object (QC): 6 Wheel 50 feet with 2 turns (QC: 9 Wheel 150 feet: 9 PT Plan Treatment/Plan Treatment Plan: Continue Plan of Care Treatment Plan: Bed Mobility, Concurrent Therapy, Education, Functional Activity [place], Functional Strength, Group Therapy, Gait, Safety, Therapeutic Exercise, Transfers Treatment Duration: Mar 21, 2022 Frequency: At least 5 of 7 days/Wk (IRF) Estimated Hrs Per Day: 1.5 hours per day Patient and/or Family Agrees t: Yes Safety Risks/Education Patient Education: Gait Training, Transfer Techniques, Correct Positioning, Safety Issues Teaching Recipient: Patient Teaching Methods: Demonstration, Discussion Response to Teaching: Verbalize Understanding, Return Demonstration, Reinforcement Needed Time/GCodes Time In: 1130 Time Out: 1200 Total Billed Treatment Time: 30 Total Billed Treatment 1,FA15m,GT15m HALI GRACIA CULTURAL ANTHROPOLOGY PROFESSOR Feb 19, 2022 12:01
[2022-02-19] MEDS: LORATADINE (CLARITIN) 10 MG TAB PO SCH (13:25)
[2022-02-19 19:44] VITALS: BP 127/61
[2022-02-19] MEDS: rOPINIRole 1 MG (REQUIP) TABLET PO SCH (20:07)
[2022-02-19] MEDS: TERAZOSIN 5 MG (HYTRIN) CAPSULE PO SCH (20:08)
--- NOTE | 2022-02-20 05:01 | PM&R Progress Note ---
Subjective HPI/CC On Admission Date Seen by Provider: Feb 20, 2022 Time Seen by Provider: 05:30 Subjective/Events-last exam 02/20/2022: Patient doing well Fever will be monitored only Back pain improved Hiccups continue 02/19/2022: Doing much better Hiccups are less frequent Fever is better Antibiotics maintained 02/18/2022: Doing well Fever continues Walking better No falls Pain ok Hiccups continue and they had occurred following the last 2 spine surgeries so this is a chronic issue following anesthesia Reglan ordered along with Compazine at daughter request [place] complaints 02/17/2022: Doing well Hiccups persist Fever noted Peripheral smear ordered Pain controlled Review of Systems Musculoskeletal: back pain hiccups Objective Exam Vital Signs Vital Signs Date Time Temp Pulse Resp B/P (MAP) Pulse Ox O2 Delivery O2 Flow Rate FiO2 02/20/22 19:29 37.5 79 20 157/70 (99) 95 Room Air Capillary Refill : General Appearance: No Apparent Distress, WD/WN, Chronically ill HEENT: PERRL/EOMI, Normal ENT Inspection, Pharynx Normal Neck: Full Range of Motion, Normal Inspection, Non Tender, Supple, Carotid Bruit Respiratory: Chest Non Tender, Lungs Clear, Normal Breath Sounds, No Accessory Muscle Use, No Respiratory Distress Cardiovascular: Regular Rate, Rhythm, No Edema, No Gallop, No JVD, No Murmur, Normal Peripheral Pulses Gastrointestinal: Normal Bowel Sounds, No Organomegaly, No Pulsatile Mass, Non Tender, Soft Back: Normal Inspection, Decreased Range of Motion, Muscle Spasm, Vertebral Tenderness Extremity: Normal Capillary Refill, Normal Inspection, Normal Range of Motion, Non Tender, No Calf Tenderness, No Pedal Edema Neurologic/Psychiatric: Alert, Oriented x3, Normal Mood/Affect, manager data II-XII Norm as Tested, Abnormal Gait, Motor Weakness (legs) Skin: Normal Color, Warm/Dry Lymphatic: No Adenopathy Results/Procedures Lab Patient resulted labs reviewed. FIM Transfers Therapy Code Descriptions/Definitions Functional [place] Measure: 0=Not Assessed/NA 4=Minimal Assistance 1=Total Assistance 5=Supervision or Setup 2=Maximal Assistance 6=Modified [place] 3=Moderate Assistance 7=Complete IndependenceSCALE: Activities may be completed with or without assistive devices. 7-Guupzgcavh-wlfqgwg completes the activity by him/herself with no assistance from a helper. 5-Set-up or Clean-up Assistance-helper sets up or cleans up; patient completes activity. [place] assists only prior to or following the activity. 4-Supervision or Touching Assistance-helper provides verbal cues and/or touching/steadying and/or contact guard assistance as patient completes activity. Assistance may be provided throughout the activity or intermittently. 3-Partial/Moderate Assistance-helper does LESS THAN HALF the effort. [place] lifts, holds or supports trunk or limbs, but provides less than half the effort. 2-Substantial/Maximal Assistance-helper does MORE THAN HALF the effort. [place] lifts or holds trunk or limbs and provides more than half the effort. 1-Gphehlffq-zkfdgd does ALL the effort. Patient does none of the effort to complete the activity. Or, the assistance of 2 or more helpers is required for the patient to complete the activity. If activity was not attempted, code reason: 7-Patient Refused. 9-Not Applicable-not attempted and the patient did not perform the activity before the current illness, exacerbation or injury. 10-Not Attempted due to Environmental Limitations-(lack of equipment, weather restraints, etc.). 88-Not Attempted due to Medical Conditions or Safety Concerns. Roll Left to Right (QC): 5 Sit to Lying (QC): 3 Sit to Stand (QC): 4 Chair/Ccy-sn-Limrj Xfer(QC): 4 Car Transfer (QC): 4 Gait Training Does the Patient Walk?: Yes Distance: 150' x2 Walk 10 feet (QC): 4 Walk 50 ft with 2 Turns(QC): 4 Walk 150 ft (QC): 4 Walking 10ft/uneven surface-QC: 4 Gait Persons Needed: 1 Gait Assistive Device: FWW Wheelchair Training Does the Pt Use a Wheelchair?: No Wheel 50 ft with 2 turns (QC): 9 Wheel 150 ft (QC): 9 Stair Training #of Steps: 4 1 Step (curb) (QC): 3 4 Steps (QC): 3 12 Steps (QC): 88 Balance Picking up an Object (QC): 4 (medical office rep) ADL-Treatment Eating (QC): 6 Oral Hygiene (QC): 4 (SBA standing at sink) Shower/Bathe Self (QC): 4 (SBA for standing balance while cleaning buttocks/periarea.) Upper Body Dressing (QC): 5 Lower Body Dressing (QC): 4 (SBA for standing balance during hike. Can doff and thread BLE through brief and pants with set up) On/Off Footwear (QC): 3 (Min A d/t heel of shoe folding. doffed/donned socks and threading through slippers with set up) Toileting Hygiene (QC): 4 (SBA for standing pant hike) Assessment/Plan Assessment and Plan Assess & Plan/Chief Complaint Assessment: Lumbar stenosis POD # [address] [place] in [place] Post op fever CXR and KUB negative placed on Levaquin empirically Advanced age HTN HLP BPH OA RLS Neuropathy Migraines Post op hiccups (hx of this following the last 2 spine surgeries) placed on Baclofen then changed to Reglan and Compazine Plan: Monitor pain Baclofen for hiccups Levaquin empirically 02/17/2022: Monitor fever Levaquin 02/18/2022: Compazine and Reglan to replace Baclofen 02/19/2022: Monitor fever 02/20/2022: Hiccup Management (1) Spinal stenosis, lumbar region with neurogenic claudication GEORGE OMER DO Feb 20, 2022 05:01
[2022-02-20] MEDS: KCL 20 MEQ TAB (K-DUR) PO SCH (05:43)
[2022-02-20] MEDS: METOCLOPRAMIDE 10 MG (REGLAN) TAB PO SCH ×4 (05:43→20:02)
[2022-02-20] MEDS: PANTOPRAZOLE 40 MG (PROTONIX) TAB PO SCH (05:43)
[2022-02-20 08:00] VITALS: BP 141/67
--- NOTE | 2022-02-20 09:00 | Physical Therapy Daily Note ---
PT Daily Note-Current Subjective Pt. in bed agrees to Rx, having a little nausea, pain not rated. Pain Location: No Pain Reported Mental Status Patient Orientation: Normal For Age Attachments: Other-See Comments (back brace) Transfers SCALE: Activities may be completed with or without assistive devices. 4-Hdkerajgrc-yxhisni completes the activity by him/herself with no assistance from a helper. 5-Set-up or Clean-up Assistance-helper sets up or cleans up; patient completes activity. [place] assists only prior to or following the activity. 4-Supervision or Touching Assistance-helper provides verbal cues and/or touching/steadying and/or contact guard assistance as patient completes activity. Assistance may be provided throughout the activity or intermittently. 3-Partial/Moderate Assistance-helper does LESS THAN HALF the effort. [place] lifts, holds or supports trunk or limbs, but provides less than half the effort. 2-Substantial/Maximal Assistance-helper does MORE THAN HALF the effort. [place] lifts or holds trunk or limbs and provides more than half the effort. 1-Ekytodcjq-surpff does ALL the effort. Patient does none of the effort to complete the activity. Or, the assistance of 2 or more helpers is required for the patient to complete the activity. If activity was not attempted, code reason: 7-Patient Refused. 9-Not Applicable-not attempted and the patient did not perform the activity before the current illness, exacerbation or injury. 10-Not Attempted due to Environmental Limitations-(lack of equipment, weather restraints, etc.). 88-Not Attempted due to Medical Conditions or Safety Concerns. Roll Left & Right (QC): 6 Sit to Lying (QC): 6 Lying to Sitting/Side of Bed(Q: 6 Sit to Stand (QC): 6 Chair/Tvd-yx-Xtldo Xfer(QC): 6 Weight Bearing Full Weight Bearing Full Weight Bearing Gait Training Does the Patient Walk?: Yes Walk 10 feet (QC): 6 Walk 50 ft with 2 Turns(QC): 4 Walk 150 ft (QC): 4 Gait Persons Needed: 1 Gait Assistive Device: FWW slow, flexed at trunk, slightly narrow ARNAUD Exercises Supine Ex: Bridging, Quad Set, Rolling, Glut sets, Heel Slides, Short Arc Quads, Scooting, Hip abd/add Supine Reps: 20 Seated Therapy Exercises: Ankle pumps, Sit to stand, Long arc quads Seated Reps: 12 Standing: Hip Abduction, Hamstring curls, Heel/toe raises, Marching Standing Reps: 15 Treatments donns brace indep, progressing well Assessment Current Status: Good Progress PT Powerhouse Tender Goals Powerhouse Tender Goals PT Powerhouse Tender Goals Time Frame: Mar 21, 2022 Roll Left & Right (QC): 6 Sit to Lying (QC): 6 Lying-Sitting on Side/Bed(QC): 6 Sit to Stand (QC): 6 Chair/Yyp-la-Sowhe Xfer(QC): 6 Toilet Transfer (QC): 6 Car Transfer (QC): 6 Does the Patient Walk: Yes Walk 10 feet (QC): 6 Walk 50ft with 2 Turns (QC): 6 Walk 150 ft (QC): 6 Walking 10ft on Uneven Surface: 6 1 Step (curb) (QC): 4 4 Steps (QC): 4 12 Steps (QC): 88 Picking up an Object (QC): 6 Wheel 50 feet with 2 turns (QC: 9 Wheel 150 feet: 9 PT Plan Treatment/Plan Treatment Plan: Continue Plan of Care Treatment Plan: Bed Mobility, Concurrent Therapy, Education, Functional Activity [place], Functional Strength, Group Therapy, Gait, Safety, Therapeutic Exercise, Transfers Treatment Duration: Mar 21, 2022 Frequency: At least 5 of 7 days/Wk (IRF) Estimated Hrs Per Day: 1.5 hours per day Patient and/or Family Agrees t: Yes Safety Risks/Education Patient Education: Gait Training, Transfer Techniques, Correct Positioning, Disease Process, Safety Issues Teaching Recipient: Patient Teaching Methods: Demonstration, Discussion Response to Teaching: Verbalize Understanding, Return Demonstration, Reinforcement Needed Time/GCodes Time In: 800 Time Out: 900 Total Billed Treatment Time: 60 Total Billed Treatment 1,EX30m,FA15m,GT15m HALI GRACIA MAINTENANCE CHIEF Feb 20, 2022 09:00
[2022-02-20] MEDS: SENNA W/DOCUSATE (SENOKOT S) TABLET PO SCH ×2 (09:49→21:00)
[2022-02-20] MEDS: polyethylene glycoL POWDER 17 GM (MIRALAX) PACK PO SCH ×2 (09:49→21:00)
[2022-02-20] MEDS: DOCUSATE SODIUM 100 MG (COLACE) CAP PO SCH ×2 (09:49→21:00)
[2022-02-20] MEDS: GABAPENTIN 600 MG (NEURONTIN) TAB PO SCH ×3 (09:50→20:01)
[2022-02-20] MEDS: DIVALPROEX 250 MG DELAYED RELEASE (DEPAKOTE) TAB PO SCH ×3 (09:50→20:01)
--- NOTE | 2022-02-20 10:29 | Occupational Ther Daily Note ---
OT Current Status-Daily Note Subjective Pt seated in recliner upon OT arrival, pt is tired but agreeable to tx. Rates pain as 5.5/10 at beginning of session, 7/10 end of session. Mental Status/Objective Patient Orientation: Person, Place, Situation ADL-Treatment Therapy Code Descriptions/Definitions Functional [place] Measure: 0=Not Assessed/NA 4=Minimal Assistance 1=Total Assistance 5=Supervision or Setup 2=Maximal Assistance 6=Modified [place] 3=Moderate Assistance 7=Complete IndependenceSCALE: Activities may be completed with or without assistive devices. 2-Qoqomuigxv-imqxywd completes the activity by him/herself with no assistance from a helper. 5-Set-up or Clean-up Assistance-helper sets up or cleans up; patient completes activity. [place] assists only prior to or following the activity. 4-Supervision or Touching Assistance-helper provides verbal cues and/or touching/steadying and/or contact guard assistance as patient completes activity. Assistance may be provided throughout the activity or intermittently. 3-Partial/Moderate Assistance-helper does LESS THAN HALF the effort. [place] lifts, holds or supports trunk or limbs, but provides less than half the effort. 2-Substantial/Maximal Assistance-helper does MORE THAN HALF the effort. [place] lifts or holds trunk or limbs and provides more than half the effort. 0-Mfwseupzo-vlvmcd does ALL the effort. Patient does none of the effort to complete the activity. Or, the assistance of 2 or more helpers is required for the patient to complete the activity. If activity was not attempted, code reason: 7-Patient Refused. 9-Not Applicable-not attempted and the patient did not perform the activity before the current illness, exacerbation or injury. 10-Not Attempted due to Environmental Limitations-(lack of equipment, weather restraints, etc.). 88-Not Attempted due to Medical Conditions or Safety Concerns. Oral Hygiene (QC): 4 (SBA standing at the sink) On/Off Footwear: 3 (Min A to tie shoes. Pt able to don socks and shoes following setup) Toileting Hygiene (QC): 4 (CGA for standing balance during pant hike) Other Treatment Pt stood from recliner, SBA, and walked into the bathroom to complete oral care/grooming tasks, SBA. He doffed his slippers then donned socks and tennis shoes prior to leaving room. Pt walked to [email or web address]] kitchen area to participate in simulated kitchen task. He was educated about kitchen safety, FWW placement, and how to maintain back precautions during IADL tasks. Pt verbalized understanding of education but required v/c's throughout task. Pt retrieved 8 stark bags before requesting a seated RB, then he retrieved last 4 bags. He requested another se ated RB before walking to the therapy gym. He completed 10min seated at arm bike (20 walters resistance) and completed one blue (moderately difficult level) design on the pipe tree with 1lb wrist weights to increase his activity tolerance. He completed 3x10 alternating punches and bicep curls with 3lb dumbbells to increase his BUE strength and endurance needed for ADLs and functional transfers. Pt required frequent RBs throughout session, reporting that it is painful for him to stand still or sit in a chair with TLSO brace for extended periods. Pt walked back to room, SBA, and requested to use the restroom prior to returning to the recliner. Post tx, pt left in recliner with call light in reach and all needs met. Education OT Patient Education: Correct positioning, Energy conservation, Exercise program, Modified ADL techniques, Progress toward Goal/Update tx plan, Purpose of tx/functional activities, Reviewed precautions, Rehab process, Safety issues, Transfer techniques, Use of adapted equipment Teaching Recipient: Patient Teaching Methods: Demonstration, Discussion Response to Teaching: Verbalize Understanding, Return Demonstration, Reinforcement Needed OT Short Term Goals Short Term Goals Time Frame: Feb 27, 2022 Shower/bathe self: 4 Lower body dressin Putting on/taking off footwear: 3 OT Fci Goals Fci Goals Time Frame: Mar 13, 2022 Eating (QC): 6 Oral Hygiene (QC): 6 Toileting Hygiene (QC): 6 Shower/Bathe Self (QC): 5 Upper Body Dressing (QC): 6 Lower Body Dressing (QC): 6 On/Off Footwear (QC): 6 Additional Goals: 1-Demonstrate ADL Tasks, 2-Verbalize Understanding, 3-Imp roveStrength/Claudette 1=Demonstrate adherence to instructed precautions during ADL tasks. 2=Patient will verbalize/demonstrate understanding of assistive devices/modifications for ADL. 3=Patient will improve strength/tolerance for activity to enable patient to perform ADL's. OT Education/Plan Problem List/Assessment Assessment: Decreased Activ Tolerance, Decreased UE Strength, Impaired I ADL's, Impaired Self-Care Skills Discharge Recommendations Plan/Recommendations: Continue POC Treatment Plan/Plan of Care Patient would benefit from OT for education, treatment and training to promote independence in ADL's, mobility, safety and/or upper extremity function for A DL's. Plan of Care: ADL Retraining, Functional Mobility, Group Exercise/Act as Ind, UE Funct Exercise/Act Treatment Duration: Mar 13, 2022 Frequency: At least 5 of 7 days/Wk (IRF) Estimated Hrs Per Day: 1.5 hours per day Rehab Potential: Fair Time/GCodes Start Time: 09:30 Stop Time: 11:00 Total Time Billed (hr/min): 90 Billed Treatment Time 1, ADL 2 (30'), FA 2(40'), Ex (20') JASSON ROSADO OT Feb 20, 2022 10:29
[2022-02-20] MEDS: LORATADINE (CLARITIN) 10 MG TAB PO SCH (11:19)
--- NOTE | 2022-02-20 11:43 | Physical Therapy Daily Note ---
PT Daily Note-Current Subjective Patient in recliner pre tx, agrees to PT, has 7/10 back pain, nurse notified and she got him pain meds. Appearance Patient in bed post tx with nurse call, phone, tray, all needs met. Mental Status Patient Orientation: Person, Place, Situation back brace Transfers SCALE: Activities may be completed with or without assistive devices. 3-Itxpjjpcqa-rrtsqfx completes the activity by him/herself with no assistance from a helper. 5-Set-up or Clean-up Assistance-helper sets up or cleans up; patient completes activity. [place] assists only prior to or following the activity. 4-Supervision or Touching Assistance-helper provides verbal cues and/or touching/steadying and/or contact guard assistance as patient completes activity. Assistance may be provided throughout the activity or intermittently. 3-Partial/Moderate Assistance-helper does LESS THAN HALF the effort. [place] lifts, holds or supports trunk or limbs, but provides less than half the effort. 2-Substantial/Maximal Assistance-helper does MORE THAN HALF the effort. [place] lifts or holds trunk or limbs and provides more than half the effort. 5-Ibjcsuvov-odchwo does ALL the effort. Patient does none of the effort to complete the activity. Or, the assistance of 2 or more helpers is required for the patient to complete the activity. If activity was not attempted, code reason: 7-Patient Refused. 9-Not Applicable-not attempted and the patient did not perform the activity before the current illness, exacerbation or injury. 10-Not Attempted due to Environmental Limitations-(lack of equipment, weather restraints, etc.). 88-Not Attempted due to Medical Conditions or Safety Concerns. Sit to Stand (QC): 4 Chair/Rle-rz-Bbbey Xfer(QC): 4 Weight Bearing Full Weight Bearing Full Weight Bearing Gait Training Distance: 120'x2 Walk 10 feet (QC): 4 Walk 50 ft with 2 Turns(QC): 4 Gait Persons Needed: 1 Gait Assistive Device: FWW slow but steady ambulation Stair Training Stair Training: Handrails/: 1 handrail #of Steps: 4 1 Step (curb) (QC): 4 4 Steps (QC): 4 Stairs: Pattern: Step to cues for safety and foot placement Exercises NuStep Minutes: 10 NuStep Workload: 5 (patient instructed to not push/pull with arms ) Treatments bed mobility and transfers, ambulation, stair training, functional strengthening Assessment Current Status: Fair Progress CGA for sit to stand and transfers PT Fdc Goals Fdc Goals PT Fdc Goals Time Frame: Mar 21, 2022 Roll Left & Right (QC): 6 Sit to Lying (QC): 6 Lying-Sitting on Side/Bed(QC): 6 Sit to Stand (QC): 6 Chair/Bji-av-Njfrp Xfer(QC): 6 Toilet Transfer (QC): 6 Car Transfer (QC): 6 Does the Patient Walk: Yes Walk 10 feet (QC): 6 Walk 50ft with 2 Turns (QC): 6 Walk 150 ft (QC): 6 Walking 10ft on Uneven Surface: 6 1 Step (curb) (QC): 4 4 Steps (QC): 4 12 Steps (QC): 88 Picking up an Object (QC): 6 Wheel 50 feet with 2 turns (QC: 9 Wheel 150 feet: 9 PT Plan Problem List Problem List: Activity Tolerance, Functional Strength, Safety, Balance, Gait, Transfer, Bed Mobility, ROM Treatment/Plan Treatment Plan: Continue Plan of Care Treatment Plan: Bed Mobility, Concurrent Therapy, Education, Functional Activity Claud[place], Functional Strength, Group Therapy, Gait, Safety, Therapeutic Exercise, Transfers Treatment Duration: Mar 21, 2022 Frequency: At least 5 of 7 days/Wk (IRF) Estimated Hrs Per Day: 1.5 hours per day Patient and/or Family Agrees t: Yes Safety Risks/Education Patient Education: Gait Training, Transfer Techniques, Steps, Correct Position ing, Safety Issues Teaching Recipient: Patient Teaching Methods: Demonstration, Discussion Response to Teaching: Reinforcement Needed Time/GCodes Time In: 1105 Time Out: 1135 Total Billed Treatment Time: 30 Total Billed Treatment 1 visit EX 10' FA 20' WILEY VILLAREAL PT Feb 20, 2022 11:43
[2022-02-20] MEDS: ONDANSETRON 4 MG (ZOFRAN) ORAL DISSOLVE TAB PO PRN (17:35)
[2022-02-20 19:29] VITALS: BP 157/70
[2022-02-20] MEDS: rOPINIRole 1 MG (REQUIP) TABLET PO SCH (20:01)
[2022-02-20] MEDS: SUMAtriptan 50 MG (IMITREX) TAB PO PRN (20:01)
[2022-02-20] MEDS: TERAZOSIN 5 MG (HYTRIN) CAPSULE PO SCH (20:08)
[2022-02-21] MEDS: METOCLOPRAMIDE 10 MG (REGLAN) TAB PO SCH ×4 (05:53→20:22)
--- NOTE | 2022-02-21 06:20 | PM&R Progress Note ---
Subjective HPI/CC On Admission Date Seen by Provider: Feb 21, 2022 Time Seen by Provider: 06:20 Subjective/Events-last exam 02/21/2022: Patient doing well Pain is controlled No fever Levaquin finished 02/20/2022: Patient doing well Fever will be monitored only Back pain improved Hiccups continue 02/19/2022: Doing much better Hiccups are less frequent Fever is better Antibiotics maintained 02/18/2022: Doing well Fever continues Walking better No falls Pain ok Hiccups continue and they had occurred following the last 2 spine surgeries so this is a chronic issue following anesthesia Reglan ordered along with Compazine at daughter request COOPER complaints 02/17/2022: Doing well Hiccups persist Fever noted Peripheral smear ordered Pain controlled Review of Systems Musculoskeletal: back pain hiccups Objective Exam Vital Signs Vital Signs Date Time Temp Pulse Resp B/P (MAP) Pulse Ox O2 Delivery O2 Flow Rate FiO2 02/21/22 09:00 Room Air 02/21/22 08:00 36.6 95 20 122/60 (80) 95 Capillary Refill : General Appearance: No Apparent Distress, WD/WN, Chronically ill HEENT: PERRL/EOMI, Normal ENT Inspection, Pharynx Normal Neck: Full Range of Motion, Normal Inspection, Non Tender, Supple, Carotid Bruit Respiratory: Chest Non Tender, Lungs Clear, Normal Breath Sounds, No Accessory Muscle Use, No Respiratory Distress Cardiovascular: Regular Rate, Rhythm, No Edema, No Gallop, No JVD, No Murmur, Normal Peripheral Pulses Gastrointestinal: Normal Bowel Sounds, No Organomegaly, No Pulsatile Mass, Non Tender, Soft Back: Normal Inspection, Decreased Range of Motion, Muscle Spasm, Vertebral Tenderness Extremity: Normal Capillary Refill, Normal Inspection, Normal Range of Motion, Non Tender, No Calf Tenderness, No Pedal Edema Neurologic/Psychiatric: Alert, Oriented x3, Normal Mood/Affect, deck molder II-XII Norm as Tested, Abnormal Gait, Motor Weakness (legs) Skin: Normal Color, Warm/Dry Lymphatic: No Adenopathy Results/Procedures Lab Patient resulted labs reviewed. FIM Transfers Therapy Code Descriptions/Definitions Functional [place] Measure: 0=Not Assessed/NA 4=Minimal Assistance 1=Total Assistance 5=Supervision or Setup 2=Maximal Assistance 6=Modified [place] 3=Moderate Assistance 7=Complete IndependenceSCALE: Activities may be completed with or without assistive devices. 1-Swkxcjyimc-ucgpptv completes the activity by him/herself with no assistance from a helper. 5-Set-up or Clean-up Assistance-helper sets up or cleans up; patient completes activity. [place] assists only prior to or following the activity. 4-Supervision or Touching Assistance-helper provides verbal cues and/or touching/steadying and/or contact guard assistance as patient completes activity. Assistance may be provided throughout the activity or intermittently. 3-Partial/Moderate Assistance-helper does LESS THAN HALF the effort. [place] l ifts, holds or supports trunk or limbs, but provides less than half the effort. 2-Substantial/Maximal Assistance-helper does MORE THAN HALF the effort. [place] lifts or holds trunk or limbs and provides more than half the effort. 4-Dnggnlnbr-nmgitv does ALL the effort. Patient does none of the effort to complete the activity. Or, the assistance of 2 or more helpers is required for t he patient to complete the activity. If activity was not attempted, code reason: 7-Patient Refused. 9-Not Applicable-not attempted and the patient did not perform the activity before the current illness, exacerbation or injury. 10-Not Attempted due to Environmental Limitations-(lack of equipment, weather restraints, etc.). 88-Not Attempted due to Medical Conditions or Safety Concerns. Roll Left to Right (QC): 6 Sit to Lying (QC): 6 Sit to Stand (QC): 4 Chair/Baj-hx-Nxpus Xfer(QC): 4 Car Transfer (QC): 4 Gait Training Does the Patient Walk?: Yes Distance: 120'x2 Walk 10 feet (QC): 4 Walk 50 ft with 2 Turns(QC): 4 Walk 150 ft (QC): 4 Walking 10ft/uneven surface-QC: 4 Gait Persons Needed: 1 Gait Assistive Device: FWW Wheelchair Training Does the Pt Use a Wheelchair?: No Wheel 50 ft with 2 turns (QC): 9 Wheel 150 ft (QC): 9 Stair Training Stair Training: Handrails/: 1 handrail #of Steps: 4 1 Step (curb) (QC): 4 4 Steps (QC): 4 12 Steps (QC): 88 Stairs: Pattern: Step to Balance Picking up an Object (QC): 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 Can doff and thread BLE through brief and pants with set up) On/Off Footwear (QC): 3 (Min A to tie shoes. Pt able to don socks and shoes following setup) Toileting Hygiene (QC): 4 (CGA for standing balance during pant hike) Assessment/Plan Assessment and Plan Assess & Plan/Chief Complaint Assessment: Lumbar stenosis POD # [address] Adams in [place] Post op fever CXR and KUB negative placed on Levaquin empirically now completed Advanced age HTN HLP BPH OA RLS Neuropathy Migraines Post op hiccups (hx of this following the last 2 spine surgeries) placed on Baclofen then changed to Reglan and Compazine Plan: Monitor pain Baclofen for hiccups Levaquin empirically 02/17/2022: Monitor fever Levaquin 02/18/2022: Compazine and Reglan to replace Baclofen 02/19/2022: Monitor fever 02/20/2022: Hiccup Management 02/21/2022: Monitor fever (1) Spinal stenosis, lumbar region with neurogenic claudication GEORGE OMER DO Feb 21, 2022 06:20
[2022-02-21] MEDS: PANTOPRAZOLE 40 MG (PROTONIX) TAB PO SCH (06:33)
[2022-02-21] MEDS: KCL 20 MEQ TAB (K-DUR) PO SCH (06:33)
[2022-02-21 08:00] VITALS: BP 122/60
[2022-02-21] MEDS: DOCUSATE SODIUM 100 MG (COLACE) CAP PO SCH ×2 (08:28→20:23)
[2022-02-21] MEDS: SENNA W/DOCUSATE (SENOKOT S) TABLET PO SCH ×2 (08:28→20:23)
[2022-02-21] MEDS: DIVALPROEX 250 MG DELAYED RELEASE (DEPAKOTE) TAB PO SCH ×3 (08:28→20:22)
[2022-02-21] MEDS: GABAPENTIN 600 MG (NEURONTIN) TAB PO SCH ×3 (08:28→20:23)
[2022-02-21] MEDS: polyethylene glycoL POWDER 17 GM (MIRALAX) PACK PO SCH ×2 (08:28→20:23)
--- NOTE | 2022-02-21 11:12 | Physical Therapy Daily Note ---
PT Daily Note-Current Subjective Pt. napping in chair upon arrival . No c/o agrees to Rx, wanted back in bed after Rx Pain Location: No Pain Reported Mental Status Patient Orientation: Normal For Age Attachments: Other-See Comments (back brace) Transfers SCALE: Activities may be completed with or without assistive devices. 2-Byzlusohbv-mcgtqge completes the activity by him/herself with no assistance from a helper. 5-Set-up or Clean-up Assistance-helper sets up or cleans up; patient completes activity. [place] assists only prior to or following the activity. 4-Supervision or Touching Assistance-helper provides verbal cues and/or touching/steadying and/or contact guard assistance as patient completes activity. Assistance may be provided throughout the activity or intermittently. 3-Partial/Moderate Assistance-helper does LESS THAN HALF the effort. [place] lifts, holds or supports trunk or limbs, but provides less than half the effort. 2-Substantial/Maximal Assistance-helper does MORE THAN HALF the effort. [place] lifts or holds trunk or limbs and provides more than half the effort. 9-Hhtakwobi-gdpqvp does ALL the effort. Patient does none of the effort to complete the activity. Or, the assistance of 2 or more helpers is required for the patient to complete the activity. If activity was not attempted, code reason: 7-Patient Refused. 9-Not Applicable-not attempted and the patient did not perform the activity before the current illness, exacerbation or injury. 10-Not Attempted due to Environmental Limitations-(lack of equipment, weather restraints, etc.). 88-Not Attempted due to Medical Conditions or Safety Concerns. Roll Left & Right (QC): 6 Sit to Lying (QC): 6 Lying to Sitting/Side of Bed(Q: 6 Sit to Stand (QC): 6 Chair/Srg-ha-Nhrkf Xfer(QC): 6 Weight Bearing Full Weight Bearing Full Weight Bearing Gait Training Does the Patient Walk?: Yes Walk 10 feet (QC): 6 Walk 50 ft with 2 Turns(QC): 6 Walk 150 ft (QC): 6 Gait Persons Needed: 1 Gait Assistive Device: FWW Exercises Seated Therapy Exercises: Ankle pumps, Sit to stand, Long arc quads Seated Reps: 12 NuStep Minutes: 10 NuStep Workload: 1 Assessment Current Status: Good Progress PT Assisted Goals Laborer Construction Or Leak Gang Goals PT Laborer [employer]ak [employer] Goals Time Frame: Mar 21, 2022 Roll Left & Right (QC): 6 Sit to Lying (QC): 6 Lying-Sitting on Side/Bed(QC): 6 Sit to Stand (QC): 6 Chair/[place]-Vvynk Xfer(QC): 6 Toilet Transfer (QC): 6 Car Transfer (QC): 6 Does the Patient Walk: Yes Walk 10 feet (QC): 6 Walk 50ft with 2 Turns (QC): 6 Walk 150 ft (QC): 6 Walking 10ft on Uneven Surface: 6 1 Step (curb) (QC): 4 4 Steps (QC): 4 12 Steps (QC): 88 Picking up an Object (QC): 6 Wheel 50 feet with 2 turns (QC: 9 Wheel 150 feet: 9 PT Plan Treatment/Plan Treatment Plan: Continue Plan of Care Treatment Plan: Bed Mobility, Concurrent Therapy, Education, Functional Activity Claudette, Functional Strength, Group Therapy, Gait, Safety, Therapeutic Exercise, Transfers Treatment Duration: Mar 21, 2022 Frequency: At least 5 of 7 days/Wk (IRF) Estimated Hrs Per Day: 1.5 hours per day Patient and/or Family Agrees t: Yes Safety Risks/Education Patient Education: Gait Training, Transfer Techniques, Correct Positioning, Reviewed Don/Doff Brace (indep), Safety Issues Teaching Recipient: Patient Teaching Methods: Demonstration, Discussion Response to Teaching: Verbalize Understanding, Return Demonstration, Reinforcement Needed Time/GCodes Time In: 1045 Time Out: 1110 Total Billed Treatment Time: 25 Total Billed Treatment 1,GT10m,Ex15m HALI GRACIA COSTUME MISTRESS Feb 21, 2022 11:12
[2022-02-21] MEDS: LORATADINE (CLARITIN) 10 MG TAB PO SCH (12:33)
[2022-02-21] MEDS ORDERED: PATIENT MAY USE OWN MED,SINGLE MED PO SCH (14:00)
[2022-02-21] MEDS: TERAZOSIN 5 MG (HYTRIN) CAPSULE PO SCH (20:22)
[2022-02-21] MEDS: rOPINIRole 1 MG (REQUIP) TABLET PO SCH (20:22)
[2022-02-21 20:24] VITALS: BP 134/60
[2022-02-21] MEDS: SUMAtriptan 50 MG (IMITREX) TAB PO PRN (23:44)
[2022-02-22] MEDS: KCL 20 MEQ TAB (K-DUR) PO SCH (06:12)
[2022-02-22] MEDS: OMEPRAZOLE 40 MG CAPSULE PO SCH (06:12)
[2022-02-22] MEDS: METOCLOPRAMIDE 10 MG (REGLAN) TAB PO SCH ×4 (06:12→21:09)
--- NOTE | 2022-02-22 06:25 | PM&R Progress Note ---
Subjective HPI/CC On Admission Date Seen by Provider: Feb 22, 2022 Time Seen by Provider: 06:30 Subjective/Events-last exam 02/22/2022: Patient doing well Less hiccups Pain is improved 02/21/2022: Patient doing well Pain is controlled No fever Levaquin finished 02/20/2022: Patient doing well Fever will be monitored only Back pain improved Hiccups continue 02/19/2022: Doing much better Hiccups are less frequent Fever is better Antibiotics maintained 02/18/2022: Doing well Fever continues Walking better No falls Pain ok Hiccups continue and they had occurred following the last 2 spine surgeries so this is a chronic issue following anesthesia Reglan ordered along with Compazine at daughter request COOPER complaints 02/17/2022: Doing well Hiccups persist Fever noted Peripheral smear ordered Pain controlled Review of Systems Musculoskeletal: back pain hiccups Objective Exam Vital Signs Vital Signs Date Time Temp Pulse Resp B/P (MAP) Pulse Ox O2 Delivery O2 Flow Rate FiO2 02/22/22 19:29 36.9 89 18 136/62 (86) 95 Room Air Capillary Refill : General Appearance: No Apparent Distress, WD/WN, Chronically ill HEENT: PERRL/EOMI, Normal ENT Inspection, Pharynx Normal Neck: Full Range of Motion, Normal Inspection, Non Tender, Supple, Carotid Bruit Respiratory: Chest Non Tender, Lungs Clear, Normal Breath Sounds, No Accessory Muscle Use, No Respiratory Distress Cardiovascular: Regular Rate, Rhythm, No Edema, No Gallop, No JVD, No Murmur, Normal Peripheral Pulses Gastrointestinal: Normal Bowel Sounds, No Organomegaly, No Pulsatile Mass, Non Tender, Soft Back: Normal Inspection, Decreased Range of Motion, Muscle Spasm, Vertebral Tenderness Extremity: Normal Capillary Refill, Normal Inspection, Normal Range of Motion, Non Tender, No Calf Tenderness, No Pedal Edema Neurologic/Psychiatric: Alert, Oriented x3, Normal Mood/Affect, caramel cutter helper II-XII Norm as Tested, Abnormal Gait, Motor Weakness (legs) Skin: Normal Color, Warm/Dry Lymphatic: No Adenopathy Results/Procedures Lab Patient resulted labs reviewed. FIM Transfers Therapy Code Descriptions/Definitions Functional [place] Measure: 0=Not Assessed/NA 4=Minimal Assistance 1=Total Assistance 5=Supervision or Setup 2=Maximal Assistance 6=Modified [place] 3=Moderate Assistance 7=Complete IndependenceSCALE: Activities may be completed with or without assistive devices. 4-Prbydusapz-gtyiipk completes the activity by him/herself with no assistance from a helper. 5-Set-up or Clean-up Assistance-helper sets up or cleans up; patient completes activity. [place] assists only prior to or following the activity. 4-Supervision or Touching Assistance-helper provides verbal cues and/or touching/steadying and/or contact guard assistance as patient completes activity. Assistance may be provided throughout the activity or intermittently. 3-Partial/Moderate Assistance-helper does LESS THAN HALF the effort. [place] lifts, holds or supports trunk or limbs, but provides less than half the effort. 2-Substantial/Maximal Assistance-helper does MORE THAN HALF the effort. [place] lifts or holds trunk or limbs and provides more than half the effort. 2-Hgannnxak-xeulnd does ALL the effort. Patient does none of the effort to complete the activity. Or, the assistance of 2 or more helpers is required for the patient to complete the activity. If activity was not attempted, code reason: 7-Patient Refused. 9-Not Applicable-not attempted and the patient did not perform the activity before the current illness, exacerbation or injury. 10-Not Attempted due to Environmental Limitations-(lack of equipment, weather restraints, etc.). 88-Not Attempted due to Medical Conditions or Safety Concerns. Roll Left to Right (QC): 6 Sit to Lying (QC): 6 Sit to Stand (QC): 6 Chair/Lri-bb-Rhcuz Xfer(QC): 6 Car Transfer (QC): 4 Gait Training Does the Patient Walk?: Yes Distance: 120'x2 Walk 10 feet (QC): 6 Walk 50 ft with 2 Turns(QC): 6 Walk 150 ft (QC): 6 Walking 10ft/uneven surface-QC: 4 Gait Persons Needed: 1 Gait Assistive Device: FWW Wheelchair Training Does the Pt Use a Wheelchair?: No Wheel 50 ft with 2 turns (QC): 9 Wheel 150 ft (QC): 9 Stair Training Stair Training: Handrails/: 1 handrail #of Steps: 4 1 Step (curb) (QC): 4 4 Steps (QC): 4 12 Steps (QC): 88 Stairs: Pattern: Step to Balance Picking up an Object (QC): 4 (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 Can doff and thread BLE through brief and pants with set up) On/Off Footwear (QC): 3 (Min A to tie shoes. Pt able to don socks and shoes following setup) Toileting Hygiene (QC): 4 (CGA for standing balance during pant hike) Assessment/Plan Assessment and Plan Assess & Plan/Chief Complaint Assessment: Lumbar stenosis POD # [address] Adams in [place] Post op fever CXR and KUB negative placed on Levaquin empirically now completed Advanced age HTN HLP BPH OA RLS Neuropathy Migraines Post op hiccups (hx of this following the last 2 spine surgeries) placed on Baclofen then changed to Reglan and Compazine Plan: Monitor pain Baclofen for hiccups Levaquin empirically 02/17/2022: Monitor fever Levaquin 02/18/2022: Compazine and Reglan to replace Baclofen 02/19/2022: Monitor fever 02/20/2022: Hiccup Management 02/21/2022: Monitor fever 02/22/2022: Supportive care (1) Spinal stenosis, lumbar region with neurogenic claudication GEORGE OMER DO Feb 22, 2022 06:25
[2022-02-22] MEDS ORDERED: NON-FORMULARY MEDICATION 1 EA EA PO SCH (07:00)
[2022-02-22 07:12] VITALS: BP 122/59
[2022-02-22] MEDS: GABAPENTIN 600 MG (NEURONTIN) TAB PO SCH ×3 (08:15→21:09)
[2022-02-22] MEDS: DOCUSATE SODIUM 100 MG (COLACE) CAP PO SCH ×2 (08:15→21:00)
[2022-02-22] MEDS: DIVALPROEX 250 MG DELAYED RELEASE (DEPAKOTE) TAB PO SCH ×3 (08:15→21:09)
[2022-02-22] MEDS: SENNA W/DOCUSATE (SENOKOT S) TABLET PO SCH ×2 (08:15→21:00)
[2022-02-22] MEDS: polyethylene glycoL POWDER 17 GM (MIRALAX) PACK PO SCH ×2 (08:19→21:00)
[2022-02-22] MEDS: LORATADINE (CLARITIN) 10 MG TAB PO SCH (12:43)
[2022-02-22 19:29] VITALS: BP 136/62
[2022-02-22] MEDS: TERAZOSIN 5 MG (HYTRIN) CAPSULE PO SCH (21:09)
[2022-02-22] MEDS: rOPINIRole 1 MG (REQUIP) TABLET PO SCH (21:09)
[2022-02-23] MEDS: SUMAtriptan 50 MG (IMITREX) TAB PO PRN (03:08)
--- NOTE | 2022-02-23 04:17 | PM&R Progress Note ---
Subjective HPI/CC On Admission Date Seen by Provider: Feb 23, 2022 Subjective/Events-last exam 02/23/2022: Patient doing well Pain is controlled Hiccups improved 02/22/2022: Patient doing well Less hiccups Pain is improved 02/21/2022: Patient doing well Pain is controlled No fever Levaquin finished 02/20/2022: Patient doing well Fever will be monitored only Back pain improved Hiccups continue 02/19/2022: Doing much better Hiccups are less frequent Fever is better Antibiotics maintained 02/18/2022: Doing well Fever continues Walking better No falls Pain ok Hiccups continue and they had occurred following the last 2 spine surgeries so this is a chronic issue following anesthesia Reglan ordered along with Compazine at daughter request COOPER complaints 02/17/2022: Doing well Hiccups persist Fever noted Peripheral smear ordered Pain controlled Review of Systems General: Fatigue, Malaise hiccups Objective Exam Vital Signs Vital Signs Date Time Temp Pulse Resp B/P (MAP) Pulse Ox O2 Delivery O2 Flow Rate FiO2 02/23/22 20:20 Room Air 02/23/22 20:00 37.6 81 20 137/62 (87) 97 Capillary Refill : General Appearance: No Apparent Distress, WD/WN, Chronically ill HEENT: PERRL/EOMI, Normal ENT Inspection, Pharynx Normal Neck: Full Range of Motion, Normal Inspection, Non Tender, Supple, Carotid Bruit Respiratory: Chest Non Tender, Lungs Clear, Normal Breath Sounds, No Accessory Muscle Use, No Respiratory Distress Cardiovascular: Regular Rate, Rhythm, No Edema, No Gallop, No JVD, No Murmur, Normal Peripheral Pulses Gastrointestinal: Normal Bowel Sounds, No Organomegaly, No Pulsatile Mass, Non Tender, Soft Back: Normal Inspection, Decreased Range of Motion, Muscle Spasm, Vertebral Tenderness Extremity: Normal Capillary Refill, Normal Inspection, Normal Range of Motion, Non Tender, No Calf Tenderness, No Pedal Edema Neurologic/Psychiatric: Alert, Oriented x3, Normal Mood/Affect, associate professor of musicology II-XII Norm as Tested, Abnormal Gait, Motor Weakness (legs) Skin: Normal Color, Warm/Dry Lymphatic: No Adenopathy Results/Procedures Lab Patient resulted labs reviewed. FIM Transfers Therapy Code Descriptions/Definitions Functional [place] Measure: 0=Not Assessed/NA 4=Minimal Assistance 1=Total Assistance 5=Supervision or Setup 2=Maximal Assistance 6=Modified [place] 3=Moderate Assistance 7=Complete IndependenceSCALE: Activities may be completed with or without assistive devices. 2-Zjkvaawxku-cejkcgw completes the activity by him/herself with no assistance from a helper. 5-Set-up or Clean-up Assistance-helper sets up or cleans up; patient completes activity. [place] assists only prior to or following the activity. 4-Supervision or Touching Assistance-helper provides verbal cues and/or touching/steadying and/or contact guard assistance as patient completes activity. Assistance may be provided throughout the activity or intermittently. 3-Partial/Moderate Assistance-helper does LESS THAN HALF the effort. [place] lifts, holds or supports trunk or limbs, but provides less than half the effort. 2-Substantial/Maximal Assistance-helper does MORE THAN HALF the effort. [place] lifts or holds trunk or limbs and provides more than half the effort. 5-Vkcxshrkh-hvvjqy does ALL the effort. Patient does none of the effort to complete the activity. Or, the assistance of 2 or more helpers is required for the patient to complete the activity. If activity was not attempted, code reason: 7-Patient Refused. 9-Not Applicable-not attempted and the patient did not perform the activity before the current illness, exacerbation or injury. 10-Not Attempted due to Environmental Limitations-(lack of equipment, weather restraints, etc.). 88-Not Attempted due to Medical Conditions or Safety Concerns. Roll Left to Right (QC): 6 Sit to Lying (QC): 6 Sit to Stand (QC): 6 Chair/Gut-di-Hsoyj Xfer(QC): 6 Car Transfer (QC): 4 Gait Training Does the Patient Walk?: Yes Distance: 120'x2 Walk 10 feet (QC): 6 Walk 50 ft with 2 Turns(QC): 6 Walk 150 ft (QC): 6 Walking 10ft/uneven surface-QC: 4 Gait Persons Needed: 1 Gait Assistive Device: FWW Wheelchair Training Does the Pt Use a Wheelchair?: No Wheel 50 ft with 2 turns (QC): 9 Wheel 150 ft (QC): 9 Stair Training Stair Training: Handrails/: 1 handrail #of Steps: 4 1 Step (curb) (QC): 4 4 Steps (QC): 4 12 Steps (QC): 88 Stairs: Pattern: Step to Balance Picking up an Object (QC): 4 (design checker) ADL-Treatment Eating (QC): 6 Oral Hygiene (QC): 4 (SBA standing at the sink) Shower/Bathe Self (QC): 4 (SBA for standing balance while cleaning buttocks/periarea.) Upper Body Dressing (QC): 5 Lower Body Dressing (QC): 4 (SBA for standing balance during hike. Can doff and thread BLE through brief and pants with set up) On/Off Footwear (QC): 3 (Min A to tie shoes. Pt able to don socks and shoes following setup) Toileting Hygiene (QC): 4 (CGA for standing balance during pant hike) Assessment/Plan Assessment and Plan Assess & Plan/Chief Complaint Assessment: Lumbar stenosis POD # [address] Adams in [place] [facility] op fever CXR and KUB negative placed on Levaquin empirically now completed Advanced age HTN HLP BPH OA RLS Neuropathy Migraines Post op hiccups (hx of this following the last 2 spine surgeries) placed on Baclofen then changed to Reglan and Compazine Plan: Monitor pain Baclofen for hiccups Levaquin empirically 02/17/2022: Monitor fever Levaquin 02/18/2022: Compazine and Reglan to replace Baclofen 02/19/2022: Monitor fever 02/20/2022: Hiccup Management 02/21/2022: Monitor fever 02/22/2022: Supportive care 02/23/2022: Discharge planning (1) Spinal stenosis, lumbar region with neurogenic claudication GEORGE OMER DO Feb 23, 2022 04:17
[2022-02-23 05:42] LABS: BASOPHILS % (AUTO) 0 % (0-10); EOSINOPHILS # (AUTO) 0.2 10^3/uL (0.0-0.3); EOSINOPHILS % (AUTO) 8 % (0-10); HEMATOCRIT 31 % (40-54); HEMOGLOBIN 10.3 g/dL (13.3-17.7); LYMPHOCYTES % (AUTO) 31 % (12-44); MEAN CORPUSCULAR HEMOGLOBIN 30 pg (25-34); MEAN CORPUSCULAR HGB CONC 33 g/dL (32-36); MEAN CORPUSCULAR VOLUME 90 fL (80-99); MEAN PLATELET VOLUME 9.1 fL (9.0-12.2); MONOCYTES # (AUTO) 0.5 10^3/uL (0.0-1.0); MONOCYTES % (AUTO) 15 % (0-12); NEUTROPHILS # (AUTO) 1.5 10^3/uL (1.8-7.8); NEUTROPHILS % (AUTO) 47 % (42-75); PLATELET COUNT 209 10^3/uL (130-400); WHITE BLOOD COUNT 3.1 10^3/uL (4.3-11.0)
[2022-02-23 05:58] LABS: ALBUMIN 3.3 GM/DL (3.2-4.5); POTASSIUM 4.2 MMOL/L (3.6-5.0)
[2022-02-23 05:59] LABS: CALCIUM 8.4 MG/DL (8.5-10.1)
[2022-02-23 06:01] LABS: TOTAL PROTEIN 6.6 GM/DL (6.4-8.2)
[2022-02-23 06:02] LABS: BILIRUBIN,TOTAL 0.5 MG/DL (0.1-1.0)
[2022-02-23 06:04] LABS: CREATININE SERUM 0.95 MG/DL (0.60-1.30)
[2022-02-23] MEDS: KCL 20 MEQ TAB (K-DUR) PO SCH (06:34)
[2022-02-23] MEDS: METOCLOPRAMIDE 10 MG (REGLAN) TAB PO SCH ×4 (06:35→20:20)
[2022-02-23] MEDS: OMEPRAZOLE 40 MG CAPSULE PO SCH (06:35)
[2022-02-23 07:19] VITALS: BP 126/62
[2022-02-23] MEDS: GABAPENTIN 600 MG (NEURONTIN) TAB PO SCH ×3 (08:03→20:19)
[2022-02-23] MEDS: DOCUSATE SODIUM 100 MG (COLACE) CAP PO SCH ×2 (08:03→19:38)
[2022-02-23] MEDS: SENNA W/DOCUSATE (SENOKOT S) TABLET PO SCH ×2 (08:03→19:39)
[2022-02-23] MEDS: DIVALPROEX 250 MG DELAYED RELEASE (DEPAKOTE) TAB PO SCH ×3 (08:03→20:19)
[2022-02-23] MEDS: polyethylene glycoL POWDER 17 GM (MIRALAX) PACK PO SCH ×2 (08:30→19:38)
--- NOTE | 2022-02-23 08:59 | Physical Therapy Daily Note ---
PT Daily Note-Current Subjective Pt sitting in recliner with Nurse putting SUN hose on upon arrival. Pt agrees to PT. Pain Numeric Pain Scale: 4 Location: Lower Location Body Site: Back Pain Description: Ache Comment: LBP as well as head ache Mental Status Patient Orientation: Person, Place, Time, Situation Attachments: Other-See Comments (TLSO Brace) Transfers SCALE: Activities may be completed with or without assistive devices. 7-Tzjvjsutni-abcrjid completes the activity by him/herself with no assistance from a helper. 5-Set-up or Clean-up Assistance-helper sets up or cleans up; patient completes activity. [place] assists only prior to or following the activity. 4-Supervision or Touching Assistance-helper provides verbal cues and/or to uching/steadying and/or contact guard assistance as patient completes activity. Assistance may be provided throughout the activity or intermittently. 3-Partial/Moderate Assistance-helper does LESS THAN HALF the effort. [place] lifts, holds or supports trunk or limbs, but provides less than half the effort. 2-Substantial/Maximal Assistance-helper does MORE THAN HALF the effort. [place] lifts or holds trunk or limbs and provides more than half the effort. 4-Bablyozff-gvejxd does ALL the effort. Patient does none of the effort to complete the activity. Or, the assistance of 2 or more helpers is required for the patient to complete the activity. If activity was not attempted, code reason: 7-Patient Refused. 9-Not Applicable-not attempted and the patient did not perform the activity before the current illness, exacerbation or injury. 10-Not Attempted due to Environmental Limitations-(lack of equipment, weather restraints, etc.). 88-Not Attempted due to Medical Conditions or Safety Concerns. Sit to Stand (QC): 5 Weight Bearing Full Weight Bearing Full Weight Bearing Gait Training Does the Patient Walk?: Yes Distance: 175', 125' Walk 10 feet (QC): 5 Walk 50 ft with 2 Turns(QC): 5 Walk 150 ft (QC): 5 Gait Assistive Device: FWW Exercises Standing: Hamstring curls, Heel/toe raises, 3 way Ex=Flex, Abd, Ext, Marching Standing Reps: 15 Treatments After SUN hose donned, pt declines need for BR. TF to standing and amb. in hallway. Pt uses NuStep and takes short RB. Pt completes Standing EX w/RB as needed. Pt amb. in hallway before returning to room to rest in recliner. All needs met, call light in hand. Assessment Current Status: Good Progress Pain doesn't limit participation in Therapy. Pt is making gains w/mobility and activity tolerance. PT Croze Cutter Goals Retirement Goals PT Retirement Goals Time Frame: Mar 21, 2022 Roll Left & Right (QC): 6 Sit to Lying (QC): 6 Lying-Sitting on Side/Bed(QC): 6 Sit to Stand (QC): 6 Chair/Xuq-qo-Yjxlz Xfer(QC): 6 Toilet Transfer (QC): 6 Car Transfer (QC): 6 Does the Patient Walk: Yes Walk 10 feet (QC): 6 Walk 50ft with 2 Turns (QC): 6 Walk 150 ft (QC): 6 Walking 10ft on Uneven Surface: 6 1 Step (curb) (QC): 4 4 Steps (QC): 4 12 Steps (QC): 88 Picking up an Object (QC): 6 Wheel 50 feet with 2 turns (QC: 9 Wheel 150 feet: 9 PT Plan Problem List Problem List: Activity Tolerance Treatment/Plan Treatment Plan: Continue Plan of Care Treatment Plan: Bed Mobility, Concurrent Therapy, Education, Functional Activi ty [place], Functional Strength, Group Therapy, Gait, Safety, Therapeutic Exercise, Transfers Treatment Duration: Mar 21, 2022 Frequency: At least 5 of 7 days/Wk (IRF) Estimated Hrs Per Day: 1.5 hours per day Patient and/or Family Agrees t: Yes Time/GCodes Time In: 800 Time Out: 900 Total Billed Treatment Time: 60 Total Billed Treatment 1, EX x2 (30m), FA (15m) & GT (15m) SHANE MOY SKID MACHINE OPERATOR Feb 23, 2022 08:59
--- NOTE | 2022-02-23 11:15 | Occupational Ther Daily Note ---
OT Current Status-Daily Note Subjective Pt sitting in recliner upon OT arrival, agreeable to tx. Pt appeared to tolerate tx better today with no c/o pain during session. Mental Status/Objective Patient Orientation: Person, Place, Situation ADL-Treatment Therapy Code Descriptions/Definitions Functional [place] Measure: 0=Not Assessed/NA 4=Minimal Assistance 1=Total Assistance 5=Supervision or Setup 2=Maximal Assistance 6=Modified [place] 3=Moderate Assistance 7=Complete IndependenceSCALE: Activities may be completed with or without assistive devices. 7-Akdnvtvdnr-czqoyor completes the activity by him/herself with no assistance from a helper. 5-Set-up or Clean-up Assistance-helper sets up or cleans up; patient completes activity. [place] assists only prior to or following the activity. 4-Supervision or Touching Assistance-helper provides verbal cues and/or touching/steadying and/or contact guard assistance as patient completes activity. Assistance may be provided throughout the activity or intermittently. 3-Partial/Moderate Assistance-helper does LESS THAN HALF the effort. [place] lifts, holds or supports trunk or limbs, but provides less than half the effort. 2-Substantial/Maximal Assistance-helper does MORE THAN HALF the effort. [place] lifts or holds trunk or limbs and provides more than half the effort. 3-Rvptrrmew-vbajqv does ALL the effort. Patient does none of the effort to complete the activity. Or, the assistance of 2 or more helpers is required for the patient to complete the activity. If activity was not attempted, code reason: 7-Patient Refused. 9-Not Applicable-not attempted and the patient did not perform the activity before the current illness, exacerbation or injury. 10-Not Attempted due to Environmental Limitations-(lack of equipment, weather restraints, etc.). 88-Not Attempted due to Medical Conditions or Safety Concerns. Oral Hygiene (QC): 4 (CGA-SBA for standing balance) Shower/Bathe Self (QC): 4 (SBA when standing to clean periarea/buttocks) Upper Body Dressing (QC): 5 Lower Body Dressing (QC): 5 On/Off Footwear: 3 (Mod A overall. Pt able to doff gripper socks and don regular socks but required assistance to doff/don compression socks and thread BLE into shoes) Toileting Hygiene (QC): 4 (SBA for standing balance when hiking pants) Other Treatment Pt stood from [facility], [place], and walked into the bathroom with FWBakari SBA, to complete toileting, showering, and dressing tasks. Pt demonstrated good recall of precautions by limiting bending and lifting; however, he required v/c's to limit twisting during tasks. After completing self-care tasks in the bathroom, pt walked back to [facility], to participate in UE exercises and standing functional activities. He completed 2x15 of bicep curls and alternating punches with 3lb dumbbell to increase BUE strength and endurance needed for ADLs and functional transfers. He then stood for 10min, CGA-[place], to complete nuts and bolts board, increasing his standing activity tolerance and functional balance. Pt requested to use restroom again and then decided to complete oral care after toileting. Post tx, pt walked back to [facility], call light left within reach, and all needs met. Education OT Patient Education: Correct positioning, Energy conservation, Exercise program, Modified ADL techniques, Progress toward Goal/Update tx plan, Purpose of tx/functional activities, Reviewed precautions, Rehab process, Safety issues, Use of adapted equipment Teaching Recipient: Patient Teaching Methods: Discussion Response to Teaching: Verbalize Understanding, Reinforcement Needed OT Short Term Goals Short Term Goals Time Frame: Feb 27, 2022 Shower/bathe self: 4 Lower body dressin Putting on/taking off footwear: 3 OT Rivet Maker Goals Rivet Maker Goals Time Frame: Mar 13, 2022 Eating (QC): 6 Oral Hygiene (QC): 6 Toileting Hygiene (QC): 6 Shower/Bathe Self (QC): 5 Upper Body Dressing (QC): 6 Lower Body Dressing (QC): 6 On/Off Footwear (QC): 6 Additional Goals: 1-Demonstrate ADL Tasks, 2-Verbalize Understanding, 3- ImproveStrength/[place]ette 1=Demonstrate adherence to instructed precautions during ADL tasks. 2=Patient will verbalize/demonstrate understanding of assistive devices/modifications for ADL. 3=Patient will improve strength/tolerance for activity to enable patient to perform ADL's. OT Education/Plan Problem List/Assessment Assessment: Decreased Activ Tolerance, Decreased UE Strength, Impaired Funct Balance, Impaired I ADL's, Impaired Self-Care Skills Discharge Recommendations Plan/Recommendations: Continue POC Treatment Plan/Plan of Care Patient would benefit from OT for education, treatment and training to promote independence in ADL's, mobility, safety and/or upper extremity function for ADL's. Plan of Care: ADL Retraining, Functional Mobility, Group Exercise/Act as Ind, UE Funct Exercise/Act Treatment Duration: Mar 13, 2022 Frequency: At least 5 of 7 days/Wk (IRF) Estimated Hrs Per Day: 1.5 hours per day Rehab Potential: Fair Time/GCodes Start Time: 09:30 Stop Time: 11:00 Total Time Billed (hr/min): 90 Billed Treatment Time 1, ADL 4 (60'), Ex (15'), FA (15') JASSON ROSADO OT Feb 23, 2022 11:15
[2022-02-23] MEDS: LORATADINE (CLARITIN) 10 MG TAB PO SCH (13:29)
--- NOTE | 2022-02-23 14:58 | Physical Therapy Daily Note ---
PT Daily Note-Current Subjective Pt L sidelying upon arrival. Pt agrees to PT. Pain Location: Left Location Body Site: Knee Pain Description: Ache Comment: Reported but not rated, Pain cream applied Mental Status Patient Orientation: Person, Place, Time, Situation Attachments: Other-See Comments (TLSO Brace) Transfers SCALE: Activities may be completed with or without assistive devices. 2-Ytjrdmxiot-qivkwfl completes the activity by him/herself with no assistance from a helper. 5-Set-up or Clean-up Assistance-helper sets up or cleans up; patient completes activity. [place] assists only prior to or following the activity. 4-Supervision or Touching Assistance-helper provides verbal cues and/or touching/steadying and/or contact guard assistance as patient completes activity. Assistance may be provided throughout the activity or intermittently. 3-Partial/Moderate Assistance-helper does LESS THAN HALF the effort. [place] lifts, holds or supports trunk or limbs, but provides less than half the effort. 2-Substantial/Maximal Assistance-helper does MORE THAN HALF the effort. [place] lifts or holds trunk or limbs and provides more than half the effort. 2-Odunpgavm-xlnqbx does ALL the effort. Patient does none of the effort to complete the activity. Or, the assistance of 2 or more helpers is required for the patient to complete the activity. If activity was not attempted, code reason: 7-Patient Refused. 9-Not Applicable-not attempted and the patient did not perform the activity before the current illness, exacerbation or injury. 10-Not Attempted due to Environmental Limitations-(lack of equipment, weather restraints, etc.). 88-Not Attempted due to Medical Conditions or Safety Concerns. Roll Left & Right (QC): 5 Lying to Sitting/Side of Bed(Q: 5 Weight Bearing Full Weight Bearing Full Weight Bearing Gait Training Does the Patient Walk?: Yes Distance: 250' Walk 10 feet (QC): 5 Walk 50 ft with 2 Turns(QC): 5 Walk 150 ft (QC): 5 Gait Assistive Device: FWW Treatments TF to standing and needs to use BR. After completion, pt amb. in hallway before returning to room to rest in recliner. All needs met, call light in hand. Assessment Current Status: Good Progress Pt zaid. tx despite reported pain in L knee. PT Care Home Goals Tomb Maker Helper Goals PT Care Home Goals Time Frame: Mar 21, 2022 Roll Left & Right (QC): 6 Sit to Lying (QC): 6 Lying-Sitting on Side/Bed(QC): 6 Sit to Stand (QC): 6 Chair/Kqi-md-Mktir Xfer(QC): 6 Toilet Transfer (QC): 6 Car Transfer (QC): 6 Does the Patient Walk: Yes Walk 10 feet (QC): 6 Walk 50ft with 2 Turns (QC): 6 Walk 150 ft (QC): 6 Walking 10ft on Uneven Surface: 6 1 Step (curb) (QC): 4 4 Steps (QC): 4 12 Steps (QC): 88 Picking up an Object (QC): 6 Wheel 50 feet with 2 turns (QC: 9 Wheel 150 feet: 9 PT Plan Problem List Problem List: Activity Tolerance Treatment/Plan Treatment Plan: Continue Plan of Care Treatment Plan: Bed Mobility, Concurrent Therapy, Education, Functional Activity [place], Functional Strength, Group Therapy, Gait, Safety, Therapeutic Exercise, Transfers Treatment Duration: Mar 21, 2022 Frequency: At least 5 of 7 days/Wk (IRF) Estimated Hrs Per Day: 1.5 hours per day Patient and/or Family Agrees t: Yes Time/GCodes Time In: 1300 Time Out: 1330 Total Billed Treatment Time: 30 Total Billed Treatment 1, GT (20m) & FA (10m) SHANE MOY MANAGER OF PROCUREMENT Feb 23, 2022 14:58
[2022-02-23 20:00] VITALS: BP 137/62
[2022-02-23] MEDS: rOPINIRole 1 MG (REQUIP) TABLET PO SCH (20:19)
[2022-02-23] MEDS: TERAZOSIN 5 MG (HYTRIN) CAPSULE PO SCH (20:20)
[2022-02-24] MEDS: KCL 20 MEQ TAB (K-DUR) PO SCH (06:06)
[2022-02-24] MEDS: OMEPRAZOLE 40 MG CAPSULE PO SCH (06:06)
[2022-02-24] MEDS: METOCLOPRAMIDE 10 MG (REGLAN) TAB PO SCH ×4 (06:06→20:37)
[2022-02-24 07:35] VITALS: BP 127/56
[2022-02-24] MEDS: DIVALPROEX 250 MG DELAYED RELEASE (DEPAKOTE) TAB PO SCH ×3 (08:09→20:37)
[2022-02-24] MEDS: polyethylene glycoL POWDER 17 GM (MIRALAX) PACK PO SCH ×2 (08:09→19:55)
[2022-02-24] MEDS: GABAPENTIN 600 MG (NEURONTIN) TAB PO SCH ×3 (08:09→20:37)
[2022-02-24] MEDS: DOCUSATE SODIUM 100 MG (COLACE) CAP PO SCH ×2 (08:09→19:54)
[2022-02-24] MEDS: SENNA W/DOCUSATE (SENOKOT S) TABLET PO SCH ×2 (08:10→19:56)
--- NOTE | 2022-02-24 10:58 | Occupational Ther Daily Note ---
OT Current Status-Daily Note Subjective Pt seated in recliner upon OT arrival, agreeable to tx. Pt appeared to be moving around better today, rating his pain 3-4 at beginning and end of session. Mental Status/Objective Patient Orientation: Person, Place, Situation ADL-Treatment Therapy Code Descriptions/Definitions Functional [place] Measure: 0=Not Assessed/NA 4=Minimal Assistance 1=Total Assistance 5=Supervision or Setup 2=Maximal Assistance 6=Modified [place] 3=Moderate Assistance 7=Complete IndependenceSCALE: Activities may be completed with or without assistive devices. 2-Puhyskyxwd-ttnryjm completes the activity by him/herself with no assistance from a helper. 5-Set-up or Clean-up Assistance-helper sets up or cleans up; patient completes activity. [place] assists only prior to or following the activity. 4-Supervision or Touching Assistance-helper provides verbal cues and/or touching/steadying and/or contact guard assistance as patient completes activity. Assistance may be provided throughout the activity or intermittently. 3-Partial/Moderate Assistance-helper does LESS THAN HALF the effort. [place] lifts, holds or supports trunk or limbs, but provides less than half the effort. 2-Substantial/Maximal Assistance-helper does MORE THAN HALF the effort. [place] lifts or holds trunk or limbs and provides more than half the effort. 5-Rttjufrtk-oqkkdp does ALL the effort. Patient does none of the effort to complete the activity. Or, the assistance of 2 or more helpers is required for the patient to complete the activity. If activity was not attempted, code reason: 7-Patient Refused. 9-Not Applicable-not attempted and the patient did not perform the activity before the current illness, exacerbation or injury. 10-Not Attempted due to Environmental Limitations-(lack of equipment, weather restraints, etc.). 88-Not Attempted due to Medical Conditions or Safety Concerns. Eating (QC): 6 Oral Hygiene (QC): 4 (SBA for standing balance) Upper Body Dressing (QC): 5 (seated) Lower Body Dressing (QC): 5 On/Off Footwear: 6 (slippers) Toileting Hygiene (QC): 6 Other Treatment Pt transferred from recliner into the bathroom to complete oral care standing at the sink, SBA. He then walked to the therapy gym to participate in a functional activity to increase his overall activity tolerance and functional balance. He stood with SBA for 20mins during simulated wood work task, then sat for remaining 10mins of task d/t fatigue. Pt was able to incorporate BUE in activity while standing with no LOB or c/o increased pain level. Pt then walked to [facility] kitchen area to participate in simulated kitchen task to further increase activity tolerance and to test recall of back precautions and FWW safety during IADL tasks. Pt required few v/c's to limit twisting during task, but demonstrated good recall of baking instructions. He stood for 10mins during kitchen task with no c/o increased pain. He returned to room and requested to toilet and change clothes prior to returning to recliner. Post tx, pt left in recliner with call light in reach and all needs met. Education OT Patient Education: Correct positioning, Energy conservation, Exercise program, Modified ADL techniques, Progress toward Goal/Update tx plan, Purpose of tx/functional activities, Reviewed precautions, Rehab process, Safety issues Teaching Recipient: Patient Teaching Methods: Discussion Response to Teaching: Verbalize Understanding OT Short Term Goals Short Term Goals Time Frame: Feb 27, 2022 Shower/bathe self: 4 Lower body dressin Putting on/taking off footwear: 3 OT Structural Test Engineer Goals Structural Test Engineer Goals Time Frame: Mar 13, 2022 Eating (QC): 6 Oral Hygiene (QC): 6 Toileting Hygiene (QC): 6 Shower/Bathe Self (QC): 5 Upper Body Dressing (QC): 6 Lower Body Dressing (QC): 6 On/Off Footwear (QC): 6 Additional Goals: 1-Demonstrate ADL Tasks, 2-Verbalize Understanding, 3- ImproveStrength/[place] 1=Demonstrate adherence to instructed precautions during ADL tasks. 2=Patient will verbalize/demonstrate understanding of assistive devices/modifications for ADL. 3=Patient will improve strength/tolerance for activity to enable patient to perform ADL's. OT Education/Plan Problem List/Assessment Assessment: Decreased Activ Tolerance, Decreased UE Strength, Impaired I ADL's, Impaired Self-Care Skills Discharge Recommendations Plan/Recommendations: Continue POC Treatment Plan/Plan of Care Patient would benefit from OT for education, treatment and training to promote independence in ADL's, mobility, safety and/or upper extremity function for ADL's. Plan of Care: ADL Retraining, Functional Mobility, Group Exercise/Act as Ind, UE Funct Exercise/Act Treatment Duration: Mar 13, 2022 Frequency: At least 5 of 7 days/Wk (IRF) Estimated Hrs Per Day: 1.5 hours per day Rehab Potential: Fair Time/GCodes Start Time: 09:30 Stop Time: 11:00 Total Time Billed (hr/min): 90 Billed Treatment Time 1, ADL 2 (35'), FA 4 (55') JASSON ROSADO OT Feb 24, 2022 10:58
--- NOTE | 2022-02-24 11:02 | Progress Note ---
EVERARDO WILKS 02/24/22 1102: Progress Note SUBJECTIVE CC: Lumbar spinal stenosis with neurogenic claudication HPI: 81yo M patient was admitted on 02/16/2022 with a diagnosis of S/P Lumbar fusion from [facility]. POD #1 the patient developed a fever and Levaquin was started. Levaquin was finished on 02/21/2022 and no fever has been noted since that time. The patient complained of persistent hiccups that have occurred the past two times he underwent anesthesia. Baclofen was initially ordered to manage the hiccups but eventually replaced with reglan along with compazine at the daughters request which has led to steady decrease in frequency of hiccups. Post-operative pain has been well controlled, the patient claimed the highest his pain has been is a 4 when moving around a lot during rehab. PMH: HTN, HLP, BPH, OA, RLS, Neuropathy, Migraines, Anxiety Disorder- nonspecified PSH: Neck surgery Reconstructive back surgery Three spinal cord stimulators Hand surgery Bone graft on finger Three cysts removed off right wrist ALL: Penicillins MEDS: Omeprazole 40mg daily 0700 PO Sumatriptan Succinate 50mg Daily PRN PO Metoclopramide HCL 10mg ACHS PO Compazine Tablet 10mg QID PRN PO Lipitor Tablet 10mg w/supper PO Claritin Tablet 10mg @1300 PO Potassium Chloride 20meq daily @0700 Terazosin HCL 10mg HS PO Refresh Plus Opthalmic Solution 1 each PRN Gabapentin 600mg TID PO Divalproex Sodium 250mg TID PO Senna 1 ea BID PO Polyethylene Glycol 17gm BID PO Docusate Sodium 100mg BID PO Lortab 10mg Q4H PRN PO Ondenosetron HCL (Zofran oral Dissolve Tablet) 4mg Q6H SH: Patient claimed he quit drinking 5 years ago, will only have an occasional drink now. History of smoking but quit 40 years ago. FH: Father had a stroke at age 60. age 70. Mother passed at age 90. Brother () had a stroke at age 72. ROS: No N/V. Last bowel movement yesterday. OBJECTIVE Vitals: Taken at 0735. Temp 98F. BP 127/56. Pulse 98. RR 16. O2 96 on RA Exam: Cardiovascular: Regular rate, rhythm. No murmurs or gallops Pulmonary: Lungs clear with normal breath sounds. No accessory muscle use. No respiratory distress. Labs/Imaging: WBC= 3.1 RBC= 3.46 Hgb= 10.3 Hct= 31 Calcium= 8.4 ASSESSMENT+PLAN Lumbar stenosis POD # [address] Adams in [place]- Continue to monitor pain Post op fever CXR and KUB negative Placed on Levaquin empirically now completed Advanced age HTN and Hyperlipidemia Continue taking Lipitor BPH OA RLS and Neuropathy- Continue gabapentin therapy Migraines- Continue sumatriptan therapy PRN Post op hiccups Hx of this following the last 2 spine surgeries Placed on Baclofen then changed to Reglan and Compazine Discharge on 02/26/2022 Set up outpatient rehab appointments MARIE OMER DO 02/24/222053: Supervisory-Addendum Brief Verification & Attestation Participated in pt care: history, MDM, physical Personally performed: exam, history, MDM, supervision of care Care discussed with: Medical Student Procedures: n/a Results interpretation: Verified all documentation Verification and Attestation of Medical Student E/M Service A medical student performed and documented this service in my presence. I reviewed and verified all information documented by the medical student and made modifications to such information, when appropriate. I personally performed the physical exam and medical decision making. Marie Omer, Feb 24, 2022,20:54 EVERARDO WILKS Feb 24, 2022 11:02 MARIE OMER DO Feb 24, 2022 20:54
--- NOTE | 2022-02-24 12:15 | Physical Therapy Progress Note ---
Therapy Progress Note Pt sitting in recliner upon arrival. CRYPTOGRAPHIC VULNERABILITY ANALYST & pt begin discussing AE needed for home as well as talking to SW to make sure HH PT is set up and pt bends forward, holding Left Center chest. Nurse notified and checks on pt. Dr Iglesias notified while examination of pt continues. Pt given warm blanket and pt asks to return to bed to stretch abdomen out as pt appears drowsy. CRYPTOGRAPHIC VULNERABILITY ANALYST aids lifting B LE into bed due to fatigue. Pt resting in bed with all needs met, call light in hand. PT will check status of pt this afternoon to resume Therapy if pt is able. 1 visit, FA (15m), tx d/c after that for morning session SHANE MOY CRYPTOGRAPHIC VULNERABILITY ANALYST Feb 24, 2022 12:15
[2022-02-24] MEDS: LORATADINE (CLARITIN) 10 MG TAB PO SCH (13:25)
--- NOTE | 2022-02-24 15:48 | Physical Therapy Daily Note ---
PT Daily Note-Current Subjective Pt laying Supine in bed upon arrival. Pt reports feeling much better this afternoon as compared to this morning's tx. Pt reports still fatigued though but agrees to walking with MILKER MACHINE. Pain Numeric Pain Scale: 4 Location: Lower Location Body Site: Back Pain Description: Ache Mental Status Patient Orientation: Person, Place, Time, Situation Attachments: Other-See Comments (TLSO Brace) Transfers SCALE: Activities may be completed with or without assistive devices. 8-Nrtdmsoumj-rgknerw completes the activity by him/herself with no assistance from a helper. 5-Set-up or Clean-up Assistance-helper sets up or cleans up; patient completes activity. Dyer assists only prior to or following the activity. 4-Supervision or Touching Assistance-helper provides verbal cues and/or touching/steadying and/or contact guard assistance as patient completes activity. Assistance may be provided throughout the activity or intermittently. 3-Partial/Moderate Assistance-helper does LESS THAN HALF the effort. Dyer lifts, holds or supports trunk or limbs, but provides less than half the effort. 2-Substantial/Maximal Assistance-helper does MORE THAN HALF the effort. Dyer lifts or holds trunk or limbs and provides more than half the effort. 3-Ldwzjgqgu-rqculq does ALL the effort. Patient does none of the effort to complete the activity. Or, the assistance of 2 or more helpers is required for the patient to complete the activity. If activity was not attempted, code reason: 7-Patient Refused. 9-Not Applicable-not attempted and the patient did not perform the activity before the current illness, exacerbation or injury. 10-Not Attempted due to Environmental Limitations-(lack of equipment, weather restraints, etc.). 88-Not Attempted due to Medical Conditions or Safety Concerns. Sit to Stand (QC): 5 Toilet Transfer (QC): 5 Weight Bearing Full Weight Bearing Full Weight Bearing Gait Training Does the Patient Walk?: Yes Distance: 250' Walk 10 feet (QC): 5 Walk 50 ft with 2 Turns(QC): 5 Walk 150 ft (QC): 5 Gait Assistive Device: FWW Treatments TF to EOB & dons TLSO Brace then stands. Pt amb. in hallway before returning to rest in recliner. Pt reports discomfort in recliner and asks to return to bed. MILKER MACHINE assists with repositioning to comfort. Pt resting with all needs met, call light in hand. Assessment Current Status: Good Progress Pt fatigues easily and needs RB but mobility is improving. PT Research Associate Policy Goals Research Associate Policy Goals PT Long-Term Goals Time Frame: Mar 21, 2022 Roll Left & Right (QC): 6 Sit to Lying (QC): 6 Lying-Sitting on Side/Bed(QC): 6 Sit to Stand (QC): 6 Chair/Rgt-uq-Prarc Xfer(QC): 6 Toilet Transfer (QC): 6 Car Transfer (QC): 6 Does the Patient Walk: Yes Walk 10 feet (QC): 6 Walk 50ft with 2 Turns (QC): 6 Walk 150 ft (QC): 6 Walking 10ft on Uneven Surface: 6 1 Step (curb) (QC): 4 4 Steps (QC): 4 12 Steps (QC): 88 Picking up an Object (QC): 6 Wheel 50 feet with 2 turns (QC: 9 Wheel 150 feet: 9 PT Plan Problem List Problem List: Activity Tolerance Treatment/Plan Treatment Plan: Continue Plan of Care Treatment Plan: Bed Mobility, Concurrent Therapy, Education, Functional Activity Claudette, Functional Strength, Group Therapy, Gait, Safety, Therapeutic Exercise, Transfers Treatment Duration: Mar 21, 2022 Frequency: At least 5 of 7 days/Wk (IRF) Estimated Hrs Per Day: 1.5 hours per day Patient and/or Family Agrees t: Yes Time/GCodes Time In: 1300 Time Out: 1330 Total Billed Treatment Time: 30 Total Billed Treatment 1, GT (20m) & FA (10m) SHANE MOY MILKER MACHINE Feb 24, 2022 15:48
[2022-02-24 20:00] VITALS: BP 135/62
[2022-02-24] MEDS: TERAZOSIN 5 MG (HYTRIN) CAPSULE PO SCH (20:37)
[2022-02-24] MEDS: rOPINIRole 1 MG (REQUIP) TABLET PO SCH (20:37)
--- NOTE | 2022-02-24 20:39 | PM&R Progress Note ---
Subjective HPI/CC On Admission Date Seen by Provider: Feb 24, 2022 Time Seen by Provider: 10:00 Subjective/Events-last exam 02/24/2022: Doing well No pain Hiccups all but gone IS use brings on the hiccups so will DC that 02/23/2022: Patient doing well Pain is controlled Hiccups improved 02/22/2022: Patient doing well Less hiccups Pain is improved 02/21/2022: Patient doing well Pain is controlled No fever Levaquin finished 02/20/2022: Patient doing well Fever will be monitored only Back pain improved Hiccups continue 02/19/2022: Doing much better Hiccups are less frequent Fever is better Antibiotics maintained 02/18/2022: Doing well Fever continues Walking better No falls Pain ok Hiccups continue and they had occurred following the last 2 spine surgeries so this is a chronic issue following anesthesia Reglan ordered along with Compazine at daughter request COOPER complaints 02/17/2022: Doing well Hiccups persist Fever noted Peripheral smear ordered Pain controlled Review of Systems General: Fatigue, Malaise hiccups Objective Exam Vital Signs Vital Signs Date Time Temp Pulse Resp B/P (MAP) Pulse Ox O2 Delivery O2 Flow Rate FiO2 02/24/22 09:00 Room Air 02/24/22 07:35 36.7 98 16 127/56 (79) 96 Capillary Refill : General Appearance: No Apparent Distress, WD/WN, Chronically ill HEENT: PERRL/EOMI, Normal ENT Inspection, Pharynx Normal Neck: Full Range of Motion, Normal Inspection, Non Tender, Supple, Carotid Bruit Respiratory: Chest Non Tender, Lungs Clear, Normal Breath Sounds, No Accessory Muscle Use, No Respiratory Distress Cardiovascular: Regular Rate, Rhythm, No Edema, No Gallop, No JVD, No Murmur, Normal Peripheral Pulses Gastrointestinal: Normal Bowel Sounds, No Organomegaly, No Pulsatile Mass, Non Tender, Soft Back: Normal Inspection, Decreased Range of Motion, Muscle Spasm, Vertebral Tenderness Extremity: Normal Capillary Refill, Normal Inspection, Normal Range of Motion, Non Tender, No Calf Tenderness, No Pedal Edema Neurologic/Psychiatric: Alert, Oriented x3, Normal Mood/Affect, locker plant attendant II-XII Norm as Tested, Abnormal Gait, Motor Weakness (legs) Skin: Normal Color, Warm/Dry Lymphatic: No Adenopathy Results/Procedures Lab Patient resulted labs reviewed. FIM Transfers Therapy Code Descriptions/Definitions Functional [place] Measure: 0=Not Assessed/NA 4=Minimal Assistance 1=Total Assistance 5=Supervision or Setup 2=Maximal Assistance 6=Modified [place] 3=Moderate Assistance 7=Complete IndependenceSCALE: Activities may be completed with or without assistive devices. 5-Gfqdkdquma-ojxuzfd completes the activity by him/herself with no assistance from a helper. 5-Set-up or Clean-up Assistance-helper sets up or cleans up; patient completes activity. Lincoln assists only prior to or following the activity. 4-Supervision or Touching Assistance-helper provides verbal cues and/or touching/steadying and/or contact guard assistance as patient completes activity. Assistance may be provided throughout the activity or intermittently. 3-Partial/Moderate Assistance-helper does LESS THAN HALF the effort. Lincoln lifts, holds or supports trunk or limbs, but provides less than half the effort. 2-Substantial/Maximal Assistance-helper does MORE THAN HALF the effort. Lincoln lifts or holds trunk or limbs and provides more than half the effort. 4-Tiuzqlyml-keeuey does ALL the effort. Patient does none of the effort to complete the activity. Or, the assistance of 2 or more helpers is required for the patient to complete the activity. If activity was not attempted, code reason: 7-Patient Refused. 9-Not Applicable-not attempted and the patient did not perform the activity before the current illness, exacerbation or injury. 10-Not Attempted due to Environmental Limitations-(lack of equipment, weather restraints, etc.). 88-Not Attempted due to Medical Conditions or Safety Concerns. Roll Left to Right (QC): 5 Sit to Lying (QC): 6 Sit to Stand (QC): 5 Chair/Qip-uu-Rvecj Xfer(QC): 6 Car Transfer (QC): 4 Gait Training Does the Patient Walk?: Yes Distance: 250' Walk 10 feet (QC): 5 Walk 50 ft with 2 Turns(QC): 5 Walk 150 ft (QC): 5 Walking 10ft/uneven surface-QC: 4 Gait Persons Needed: 1 Gait Assistive Device: FWW Wheelchair Training Does the Pt Use a Wheelchair?: No Wheel 50 ft with 2 turns (QC): 9 Wheel 150 ft (QC): 9 Stair Training Stair Training: Handrails/: 1 handrail #of Steps: 4 1 Step (curb) (QC): 4 4 Steps (QC): 4 12 Steps (QC): 88 Stairs: Pattern: Step to Balance Picking up an Object (QC): 4 (fire apparatus engineer) ADL-Treatment Eating (QC): 6 Oral Hygiene (QC): 4 (SBA for standing balance) Shower/Bathe Self (QC): 4 (SBA when standing to clean periarea/buttocks) Upper Body Dressing (QC): 5 (seated) Lower Body Dressing (QC): 5 On/Off Footwear (QC): 6 (slippers) Toileting Hygiene (QC): 6 Assessment/Plan Assessment and Plan Assess & Plan/Chief Complaint Assessment: Lumbar stenosis POD # [address] Adams in [place] Post op fever CXR and KUB negative placed on Levaquin empirically now completed Advanced age HTN HLP BPH OA RLS Neuropathy Migraines Post op hiccups (hx of this following the last 2 spine surgeries) placed on Baclofen then changed to Reglan and Compazine Plan: Monitor pain Baclofen for hiccups Levaquin empirically 02/17/2022: Monitor fever Levaquin 02/18/2022: Compazine and Reglan to replace Baclofen 02/19/2022: Monitor fever 02/20/2022: Hiccup Management 02/21/2022: Monitor fever 02/22/2022: Supportive care 02/23/2022: Discharge planning 02/24/2022: DC planned am (1) Spinal stenosis, lumbar region with neurogenic claudication GEORGE OMER DO Feb 24, 2022 20:39
[2022-02-25] MEDS: SUMAtriptan 50 MG (IMITREX) TAB PO PRN (00:33)
[2022-02-25] MEDS ORDERED: ONDA4TAB11 PO (05:52)
[2022-02-25] MEDS ORDERED: PROC10TA10 PO (05:52)
[2022-02-25] MEDS ORDERED: HYDR-3820 PO (05:52)
[2022-02-25] MEDS ORDERED: MTC10T PO (05:52)
--- NOTE | 2022-02-25 05:54 | D/C HH Face to Face Order ---
D/C HH Face to Face Orders Reconcile Patient Problems Problems Reviewed?: Yes Instructions for Patient HH Patient Instructions/FollowUp: PCP [address] Adams 02/26/22 Physician to follow Patient: Rachid Discharge Diet for Home: No Restrictions Patient Problems: Back surgery Patient Data-Allergies,Ht & Wt Patient Allergies: Coded Allergies: Penicillins (Verified Allergy, Unknown, 02/16/22) Home Health Need/Face to Face Date of Face to Face: Feb 25, 2022 Clinical Findings: Generalized weakness and fatigue, Instability, Muscle weakness, Pain with ambulation, Unsteady gait I have seen Pt mjkh-oz-yxhx: Yes Discharged To: Home Diagnosis/Conditions: Back surgery Patient is Homebound due to: Nirmal fall risk due to instabilty, Muscle weakness, Pain w/ambulation Homebound Status Due to the above stated illness, injury or surgical procedure (medical condition or diagnosis) and associated clinical findings, the patient is homebound because of his/her inability to leave home except with aid of a supportive device and/or person AND leaving the home requires a considerable and taxing effort or is medically contraindicated. Pt req the following assistanc: Walker Home Health Nursing Orders Home Health Services Order: Nursing Services, Vice Chancellor-Evaluate & Treat, Physical Therapy-Evaluate & Treat, Other (bath aide) Certify Stmt I certify that this patient is under my care and that I, a nurse practitioner or a physician; a assistant news director working with me, had a face to face encounter that - meets the physician face to face encounter requirements with this patient as dated. GEORGE OMER DO Feb 25, 2022 05:54
--- NOTE | 2022-02-25 06:06 | PM&R Progress Note ---
Subjective HPI/CC On Admission Date Seen by Provider: Feb 25, 2022 Time Seen by Provider: 09:00 Subjective/Events-last exam 02/25/2022: Doing well No issues Hiccups improved DC tomorrow at [address] Angie lindsay 02/24/2022: Doing well No pain Hiccups all but gone IS use brings on the hiccups so will DC that 02/23/2022: Patient doing well Pain is controlled Hiccups improved 02/22/2022: Patient doing well Less hiccups Pain is improved 02/21/2022: Patient doing well Pain is controlled No fever Levaquin finished 02/20/2022: Patient doing well Fever will be monitored only Back pain improved Hiccups continue 02/19/2022: Doing much better Hiccups are less frequent Fever is better Antibiotics maintained 02/18/2022: Doing well Fever continues Walking better No falls Pain ok Hiccups continue and they had occurred following the last 2 spine surgeries so this is a chronic issue following anesthesia Reglan ordered along with Compazine at daughter request COOPER complaints 02/17/2022: Doing well Hiccups persist Fever noted Peripheral smear ordered Pain controlled Review of Systems General: Fatigue, Malaise Musculoskeletal: back pain hiccups Objective Exam Vital Signs Vital Signs Date Time Temp Pulse Resp B/P (MAP) Pulse Ox O2 Delivery O2 Flow Rate FiO2 02/25/22 08:57 Room Air 02/25/22 07:39 37.0 96 18 128/64 (85) 94 Capillary Refill : General Appearance: No Apparent Distress, WD/WN, Chronically ill HEENT: PERRL/EOMI, Normal ENT Inspection, Pharynx Normal Neck: Full Range of Motion, Normal Inspection, Non Tender, Supple, Carotid Bruit Respiratory: Chest Non Tender, Lungs Clear, Normal Breath Sounds, No Accessory Muscle Use, No Respiratory Distress Cardiovascular: Regular Rate, Rhythm, No Edema, No Gallop, No JVD, No Murmur, Normal Peripheral Pulses Gastrointestinal: Normal Bowel Sounds, No Organomegaly, No Pulsatile Mass, Non Tender, Soft Back: Normal Inspection, Decreased Range of Motion, Muscle Spasm, Vertebral Tenderness Extremity: Normal Capillary Refill, Normal Inspection, Normal Range of Motion, Non Tender, No Calf Tenderness, No Pedal Edema Neurologic/Psychiatric: Alert, Oriented x3, Normal Mood/Affect, bullet lubricating machine operator II-XII Norm as Tested, Abnormal Gait, Motor Weakness (legs) Skin: Normal Color, Warm/Dry Lymphatic: No Adenopathy Results/Procedures Lab Patient resulted labs reviewed. FIM Transfers Therapy Code Descriptions/Definitions Functional [place] Measure: 0=Not Assessed/NA 4=Minimal Assistance 1=Total Assistance 5=Supervision or Setup 2=Maximal Assistance 6=Modified [place] 3=Moderate Assistance 7=Complete IndependenceSCALE: Activities may be completed with or without assistive devices. 5-Vtjkllcsnc-lgybeyv completes the activity by him/herself with no assistance from a helper. 5-Set-up or Clean-up Assistance-helper sets up or cleans up; patient completes activity. Dewey assists only prior to or following the activity. 4-Supervision or Touching Assistance-helper provides verbal cues and/or touching/steadying and/or contact guard assistance as patient completes activity. Assistance may be provided throughout the activity or intermittently. 3-Partial/Moderate Assistance-helper does LESS THAN HALF the effort. Dewey lifts, holds or supports trunk or limbs, but provides less than half the effort. 2-Substantial/Maximal Assistance-helper does MORE THAN HALF the effort. Dewey lifts or holds trunk or limbs and provides more than half the effort. 1-Bvhumdirz-hodijt does ALL the effort. Patient does none of the effort to complete the activity. Or, the assistance of 2 or more helpers is required for the patient to complete the activity. If activity was not attempted, code reason: 7-Patient Refused. 9-Not Applicable-not attempted and the patient did not perform the activity before the current illness, exacerbation or injury. 10-Not Attempted due to Environmental Limitations-(lack of equipment, weather restraints, etc.). 88-Not Attempted due to Medical Conditions or Safety Concerns. Roll Left to Right (QC): 5 Sit to Lying (QC): 6 Sit to Stand (QC): 5 Chair/Plz-rz-Gbzre Xfer(QC): 6 Car Transfer (QC): 4 Gait Training Does the Patient Walk?: Yes Distance: 250' Walk 10 feet (QC): 5 Walk 50 ft with 2 Turns(QC): 5 Walk 150 ft (QC): 5 Walking 10ft/uneven surface-QC: 4 Gait Persons Needed: 1 Gait Assistive Device: FWW Wheelchair Training Does the Pt Use a Wheelchair?: No Wheel 50 ft with 2 turns (QC): 9 Wheel 150 ft (QC): 9 Stair Training Stair Training: Handrails/: 1 handrail #of Steps: 4 1 Step (curb) (QC): 4 4 Steps (QC): 4 12 Steps (QC): 88 Stairs: Pattern: Step to Balance Picking up an Object (QC): 4 (senior auditor) ADL-Treatment Eating (QC): 6 Oral Hygiene (QC): 4 (SBA for standing balance) Shower/Bathe Self (QC): 4 (SBA when standing to clean periarea/buttocks) Upper Body Dressing (QC): 5 (seated) Lower Body Dressing (QC): 5 On/Off Footwear (QC): 6 (slippers) Toileting Hygiene (QC): 6 Assessment/Plan Assessment and Plan Assess & Plan/Chief Complaint Assessment: Lumbar stenosis POD # [address] Adams in [place] Post op fever CXR and KUB negative placed on Levaquin empirically now completed Advanced age HTN HLP BPH OA RLS Neuropathy Migraines Post op hiccups (hx of this following the last 2 spine surgeries) placed on Baclofen then changed to Reglan and Compazine Plan: Monitor pain Baclofen for hiccups Levaquin empirically 02/17/2022: Monitor fever Levaquin 02/18/2022: Compazine and Reglan to replace Baclofen 02/19/2022: Monitor fever 02/20/2022: Hiccup Management 02/21/2022: Monitor fever 02/22/2022: Supportive care 02/23/2022: Discharge planning 02/24/2022: DC planned am 02/25/2022: DC tomorrow (1) Spinal stenosis, lumbar region with neurogenic claudication GEORGE OMER DO Feb 25, 2022 06:06
[2022-02-25] MEDS: OMEPRAZOLE 40 MG CAPSULE PO SCH (06:20)
[2022-02-25] MEDS: KCL 20 MEQ TAB (K-DUR) PO SCH (06:21)
[2022-02-25] MEDS: METOCLOPRAMIDE 10 MG (REGLAN) TAB PO SCH ×4 (06:21→20:26)
[2022-02-25 07:39] VITALS: BP 128/64
[2022-02-25] MEDS: DIVALPROEX 250 MG DELAYED RELEASE (DEPAKOTE) TAB PO SCH ×3 (07:40→20:26)
[2022-02-25] MEDS: GABAPENTIN 600 MG (NEURONTIN) TAB PO SCH ×3 (07:40→20:26)
[2022-02-25] MEDS: SENNA W/DOCUSATE (SENOKOT S) TABLET PO SCH ×2 (07:41→19:21)
[2022-02-25] MEDS: DOCUSATE SODIUM 100 MG (COLACE) CAP PO SCH ×2 (07:42→19:20)
[2022-02-25] MEDS: polyethylene glycoL POWDER 17 GM (MIRALAX) PACK PO SCH ×2 (07:42→19:21)
--- NOTE | 2022-02-25 09:32 | Occupational Ther Daily Note ---
OT Current Status-Daily Note Subjective Pt sitting EOB on phone call upon OT arrival, agreeable to tx. Pt says his lower back feels sore today (12/02), but it did not appear to affect his occupational performance during tx. Mental Status/Objective Patient Orientation: Person, Place, Situation ADL-Treatment Therapy Code Descriptions/Definitions Functional [place] Measure: 0=Not Assessed/NA 4=Minimal Assistance 1=Total Assistance 5=Supervision or Setup 2=Maximal Assistance 6=Modified [place] 3=Moderate Assistance 7=Complete IndependenceSCALE: Activities may be completed with or without assistive devices. 1-Cjuitfqius-zessntc completes the activity by him/herself with no assistance from a helper. 5-Set-up or Clean-up Assistance-helper sets up or cleans up; patient completes activity. [place] assists only prior to or following the activity. 4-Supervision or Touching Assistance-helper provides verbal cues and/or touching/steadying and/or contact guard assistance as patient completes activity. Assistance may be provided throughout the activity or intermittently. 3-Partial/Moderate Assistance-helper does LESS THAN HALF the effort. [place] lifts, holds or supports trunk or limbs, but provides less than half the effort. 2-Substantial/Maximal Assistance-helper does MORE THAN HALF the effort. [place] lifts or holds trunk or limbs and provides more than half the effort. 0-Iyjovlxhf-bwwcjo does ALL the effort. Patient does none of the effort to complete the activity. Or, the assistance of 2 or more helpers is required for the patient to complete the activity. If activity was not attempted, code reason: 7-Patient Refused. 9-Not Applicable-not attempted and the patient did not perform the activity befo re the current illness, exacerbation or injury. 10-Not Attempted due to Environmental Limitations-(lack of equipment, weather re straints, etc.). 88-Not Attempted due to Medical Conditions or Safety Concerns. Eating (QC): 6 (Per pt report) Oral Hygiene (QC): 6 Shower/Bathe Self (QC): 5 Upper Body Dressing (QC): 6 Lower Body Dressing (QC): 6 On/Off Footwear: 6 Toileting Hygiene (QC): 6 Other Treatment Pt stood from EOB, and independently walked to closet with FWW to retrieve appropriate clothing items. Pt educated about FWW safety when carrying items, pt verbalized understanding and returned demonstration. Pt walked into bathroom to complete showering, dressing, and oral care/grooming tasks. After self-care tasks, pt independently walked back to recliner. Post tx, pt left in recliner with call light in reach and all needs met. Education OT Patient Education: Correct positioning, Energy conservation, Exercise program, Modified ADL techniques, Progress toward Goal/Update tx plan, Purpose of tx/functional activities, Reviewed precautions, Rehab process, Use of adapted equipment Teaching Recipient: Patient Teaching Methods: Discussion Response to Teaching: Verbalize Understanding OT Short Term Goals Short Term Goals Time Frame: Feb 27, 2022 Shower/bathe self: 4 Lower body dressin Putting on/taking off footwear: 3 OT Custodial Goals Custodial Goals Time Frame: Mar 13, 2022 Eating (QC): 6 (met) Oral Hygiene (QC): 6 (met) Toileting Hygiene (QC): 6 (met) Shower/Bathe Self (QC): 5 (met) Upper Body Dressing (QC): 6 (met) Lower Body Dressing (QC): 6 (met) On/Off Footwear (QC): 6 (met) Additional Goals: 1-Demonstrate ADL Tasks, 2-Verbalize Understanding, 3-ImproveStrength/Claudette 1=Demonstrate adherence to instructed precautions during ADL tasks. 2=Patient will verbalize/demonstrate understanding of assistive devices/modifications for ADL. 3=Patient will improve strength/tolerance for activity to enable patient to perform ADL's. OT Education/Plan Problem List/Assessment Assessment: Decreased Activ Tolerance, Decreased UE Strength, Impaired Funct Balance, Impaired I ADL's, Impaired Self-Care Skills Discharge Recommendations Plan/Recommendations: Continue POC Equpiment Recommendations-D/C: Other, See Comments (shoe funnel) Treatment Plan/Plan of Care Patient would benefit from OT for education, treatment and training to promote independence in ADL's, mobility, safety and/or upper extremity function for ADL's. Plan of Care: ADL Retraining, Functional Mobility, Group Exercise/Act as Ind, UE Funct Exercise/Act Treatment Duration: Mar 13, 2022 Frequency: At least 5 of 7 days/Wk (IRF) Estimated Hrs Per Day: 1.5 hours per day Rehab Potential: Fair Time/GCodes Start Time: 09:00 Stop Time: 10:00 Total Time Billed (hr/min): 60 Billed Treatment Time 1, ADL 4 (60') JASSON ROSADO OT Feb 25, 2022 09:32
--- NOTE | 2022-02-25 10:56 | Physical Therapy Daily Note ---
PT Daily Note-Current Subjective Pt sitting in recliner upon arrival. Pt agrees to PT for QC scoring items. Pain Numeric Pain Scale: 5-Moderate Pain Location: Lower Location Body Site: Back Pain Description: Ache Mental Status Patient Orientation: Person, Place, Time, Situation Attachments: Other-See Comments (TLSO Brace) Transfers SCALE: Activities may be completed with or without assistive devices. 6-Rpcuntthuc-uuocsou completes the activity by him/herself with no assistance from a helper. 5-Set-up or Clean-up Assistance-helper sets up or cleans up; patient completes activity. [place] assists only prior to or following the activity. 4-Supervision or Touching Assistance-helper provides verbal cues and/or touching/steadying and/or contact guard assistance as patient completes activity. Assistance may be provided throughout the activity or intermittently. 3-Partial/Moderate Assistance-helper does LESS THAN HALF the effort. [place] lifts, holds or supports trunk or limbs, but provides less than half the effort. 2-Substantial/Maximal Assistance-helper does MORE THAN HALF the effort. [place] lifts or holds trunk or limbs and provides more than half the effort. 7-Ykairxyry-efddqr does ALL the effort. Patient does none of the effort to complete the activity. Or, the assistance of 2 or more helpers is required for the patient to complete the activity. If activity was not attempted, code reason: 7-Patient Refused. 9-Not Applicable-not attempted and the patient did not perform the activity before the current illness, exacerbation or injury. 10-Not Attempted due to Environmental Limitations-(lack of equipment, weather restraints, etc.). 88-Not Attempted due to Medical Conditions or Safety Concerns. Roll Left & Right (QC): 6 Sit to Lying (QC): 6 Lying to Sitting/Side of Bed(Q: 6 Sit to Stand (QC): 6 Chair/Yee-xu-Gkblg Xfer(QC): 6 Toilet Transfer (QC): 6 Car Transfer (QC): 6 Weight Bearing Full Weight Bearing Full Weight Bearing Gait Training Does the Patient Walk?: Yes Distance: 225' Walk 10 feet (QC): 6 Walk 50 ft with 2 Turns(QC): 6 Walk 150 ft (QC): 6 Walking 10ft/uneven surface-QC: 6 Gait Assistive Device: FWW Wheelchair Training Does the Pt Use a Wheelchair?: No Stair Training Stair Training: Handrails/: 2 handrails #of Steps: 4 1 Step (curb) (QC): 6 4 Steps (QC): 6 12 Steps (QC): 7 Stairs: Pattern: Step to Balance Picking up an Object (QC): 88 Special Test Comments This is not attempted due to pt's back surgery and precautions. Pt will use line controller at home or have assistance from family & friends. Treatments [id number]: Pt completes QC scoring items listed above except picking up object from floor and bed mobility. Pt is able to walk extended distance using FWW. Pt returns to room to use BR and returns to recliner to rest at end of tx. All needs met, call light in hand. [id number]: Pt completes bed mobility as well as uses BR. Pt amb. before returning to recliner to rest at end of tx. All needs met, call light in hand. Assessment Current Status: Good Progress Pt has gained mobility and is better able to complete tasks despite residual pain in low back. PT Longterm Goals Longterm Goals PT Longterm Goals Time Frame: Mar 21, 2022 Roll Left & Right (QC): 6 Sit to Lying (QC): 6 Lying-Sitting on Side/Bed(QC): 6 Sit to Stand (QC): 6 Chair/Zwg-rx-Rnkgx Xfer(QC): 6 Toilet Transfer (QC): 6 Car Transfer (QC): 6 Does the Patient Walk: Yes Walk 10 feet (QC): 6 Walk 50ft with 2 Turns (QC): 6 Walk 150 ft (QC): 6 Walking 10ft on Uneven Surface: 6 1 Step (curb) (QC): 4 4 Steps (QC): 4 12 Steps (QC): 88 Picking up an Object (QC): 6 Wheel 50 feet with 2 turns (QC: 9 Wheel 150 feet: 9 PT Plan Treatment/Plan Treatment Plan: Continue Plan of Care Treatment Plan: Bed Mobility, Concurrent Therapy, Education, Functional Activity Claudette, Functional Strength, Group Therapy, Gait, Safety, Therapeutic Exercise, Transfers Treatment Duration: Mar 21, 2022 Frequency: At least 5 of 7 days/Wk (IRF) Estimated Hrs Per Day: 1.5 hours per day Patient and/or Family Agrees t: Yes Time/GCodes Time In: 1000 Time Out: 1100 Total Billed Treatment Time: 60 Total Billed Treatment [id number]: 1, GT x2 (30m) & FA x2 (30m) [id number]: 1, FA (15m) & EX (15m) SHANE MOY EQUINE BREEDER Feb 25, 2022 10:56
[2022-02-25] MEDS: LORATADINE (CLARITIN) 10 MG TAB PO SCH (13:14)
--- NOTE | 2022-02-25 14:10 | Occupational Ther Daily Note ---
OT Current Status-Daily Note Subjective Pt seated EOB upon OT arrival, agreeable to tx. Pt says pain is about the same as it was this morning (12/02). Mental Status/Objective Patient Orientation: Person, Place, Situation ADL-Treatment Therapy Code Descriptions/Definitions Functional [place] Measure: 0=Not Assessed/NA 4=Minimal Assistance 1=Total Assistance 5=Supervision or Setup 2=Maximal Assistance 6=Modified [place] 3=Moderate Assistance 7=Complete IndependenceSCALE: Activities may be completed with or without assistive devices. 9-Cdwctooail-ixuzecv completes the activity by him/herself with no assistance from a helper. 5-Set-up or Clean-up Assistance-helper sets up or cleans up; patient completes activity. [place] assists only prior to or following the activity. 4-Supervision or Touching Assistance-helper provides verbal cues and/or touching/steadying and/or contact guard assistance as patient completes activity. Assistance may be provided throughout the activity or intermittently. 3-Partial/Moderate Assistance-helper does LESS THAN HALF the effort. [place] lift s, holds or supports trunk or limbs, but provides less than half the effort. 2-Substantial/Maximal Assistance-helper does MORE THAN HALF the effort. [place] lifts or holds trunk or limbs and provides more than half the effort. 2-Ggekjfukt-kocdmf does ALL the effort. Patient does none of the effort to complete the activity. Or, the assistance of 2 or more helpers is required for the patient to complete the activity. If activity was not attempted, code reason: 7-Patient Refused. 9-Not Applicable-not attempted and the patient did not perform the activity before the current illness, exacerbation or injury. 10-Not Attempted due to Environmental Limitations-(lack of equipment, weather restraints, etc.). 88-Not Attempted due to Medical Conditions or Safety Concerns. Other Treatment OT demonstrated FWW placement and safety during IADL tasks, then pt independently stood from EOB and returned demonstration when retrieving laundry items. Pt participated in simulated IADL task to increase activity tolerance needed to complete task upon d/c. Pt independently walked to laundry room and placed laundry in washer, adhering to 3/3 back precautions. Pt then performed functional activity within the halls, retrieving 12 cards placed in all planes on the wall. Pt again adhered to 3/3 back precautions and no LOB during activity. Pt returned to recliner in room, requiring v/c's to keep FWW with him until completely seated in chair. Post tx, pt left in recliner with call light in reach and all needs met. Education OT Patient Education: Correct positioning, Energy conservation, Exercise program, Modified ADL techniques, Progress toward Goal/Update tx plan, Purpose of tx/functional activities, Reviewed precautions, Rehab process, Safety issues Teaching Recipient: Patient Teaching Methods: Demonstration, Discussion Response to Teaching: Verbalize Understanding, Return Demonstration OT Short Term Goals Short Term Goals Time Frame: Feb 27, 2022 Shower/bathe self: 4 Lower body dressin Putting on/taking off footwear: 3 OT Shelter Goals Accounts Supervisor Goals Time Frame: Mar 13, 2022 Eating (QC): 6 (met) Oral Hygiene (QC): 6 (met) Toileting Hygiene (QC): 6 (met) Shower/Bathe Self (QC): 5 (met) Upper Body Dressing (QC): 6 (met) Lower Body Dressing (QC): 6 (met) On/Off Footwear (QC): 6 (met) Additional Goals: 1-Demonstrate ADL Tasks, 2-Verbalize Understanding, 3- ImproveStrength/Claudette 1=Demonstrate adherence to instructed precautions during ADL tasks. 2=Patient will verbalize/demonstrate understanding of assistive devices/modifications for ADL. 3=Patient will improve strength/tolerance for activity to enable patient to perform ADL's. OT Education/Plan Problem List/Assessment Assessment: Decreased Activ Tolerance, Decreased UE Strength, Impaired Funct Balance, Impaired I ADL's, Impaired Self-Care Skills Discharge Recommendations Plan/Recommendations: Continue POC Treatment Plan/Plan of Care Patient would benefit from OT for education, treatment and training to promote independence in ADL's, mobility, safety and/or upper extremity function for ADL's. Plan of Care: ADL Retraining, Functional Mobility, Group Exercise/Act as Ind, UE Funct Exercise/Act Treatment Duration: Mar 13, 2022 Frequency: At least 5 of 7 days/Wk (IRF) Estimated Hrs Per Day: 1.5 hours per day Rehab Potential: Fair Time/GCodes Start Time: 13:30 Stop Time: 14:00 Total Time Billed (hr/min): 30 Billed Treatment Time 1, FA 2 (30') JASSON ROSADO OT Feb 25, 2022 14:10
[2022-02-25 20:05] VITALS: BP 126/58
[2022-02-25] MEDS: TERAZOSIN 5 MG (HYTRIN) CAPSULE PO SCH (20:26)
[2022-02-25] MEDS: rOPINIRole 1 MG (REQUIP) TABLET PO SCH (20:26)
--- NOTE | 2022-02-26 05:47 | Discharge Summary ---
Diagnosis/Chief Complaint Date of Admission Feb 16, 2022 at 13:00 Date of Discharge Discharge Date: Feb 26, 2022 Discharge Diagnosis Assessment: Lumbar stenosis POD # [address] Adams in [place] Post op fever CXR and KUB negative placed on Levaquin empirically now completed Advanced age HTN HLP BPH OA RLS Neuropathy Migraines Post op hiccups (hx of this following the last 2 spine surgeries) placed on Baclofen then changed to Reglan and Compazine Plan: Monitor pain Baclofen for hiccups Levaquin empirically 02/17/2022: Monitor fever Levaquin 02/18/2022: Compazine and Reglan to replace Baclofen 02/19/2022: Monitor fever 02/20/2022: Hiccup Management 02/21/2022: Monitor fever 02/22/2022: Supportive care 02/23/2022: Discharge planning 02/24/2022: DC planned am 02/25/2022: DC tomorrow (1) Spinal stenosis, lumbar region with neurogenic claudication Discharge Summary Discharge Physical Examination Allergies: Coded Allergies: Penicillins (Verified Allergy, Unknown, 02/16/22) Vitals & I&Os Vital Signs Date Time Temp Pulse Resp B/P (MAP) Pulse Ox O2 Delivery O2 Flow Rate FiO2 02/26/22 09:25 36.7 93 18 135/75 95 Room Air General Appearance: Alert, Oriented X3, Cooperative Respiratory: Clear to Auscultation Cardiovascular: Regular Rate Neuro: Normal Gait, Normal Speech, Strength at 5/5 X4 Ext Psych/Mental Status: Mental Status NL Hospital Course Was the Problem List Reviewed?: Yes Lengthy course after admitted from [facility] spine surgery by Dr Adams. Post op hiccups occurred and resolved by the time he was DC but also FUO occurred and ultimately resolved with time and supportive care. Levaquin completed which was started by Dr Adams in [place] but CXR and COVID and UA were normal. Overall patient was able to DC in improved condition with HH. Labs (last 24 hrs) Laboratory Tests 02/17/22 05:51: White Blood Count 2.5L, Red Blood Count 2.97L, Hemoglobin 8.9L, Hematocrit 27L, Mean Corpuscular Volume 91, Mean Corpuscular Hemoglobin 30, Mean Corpuscular Hemoglobin Concent 33, Red Cell Distribution Width 13.3, Platelet Count 116L, Mean Platelet Volume 9.7, Immature Granulocyte % (Auto) 0, Neutrophils (%) (Auto) 63, Lymphocytes (%) (Auto) 17, Monocytes (%) (Auto) 14H, Eosinophils (%) (Auto) 6, Basophils (%) (Auto) 0, Neutrophils # (Auto) 1.6L, Lymphocytes # (Auto) 0.4L, Monocytes # (Auto) 0.3, Eosinophils # (Auto) 0.2, Basophils # (Auto) 0.0, Immature Granulocyte # (Auto) 0.0, Neutrophils % (Manual) 65, Lymphocytes % (Manual) 17, Monocytes % (Manual) 11, Eosinophils % (Manual) 4, Basophils % (Manual) 0, Band Neutrophils 3, Percent Immature Platelet Fraction 3.8, Anisocytosis SLIGHT, Absolute Reticulocyte Count 78, Percent Reticulocyte Count 2.59H, Sodium Level 136, Potassium Level 4.0, Chloride Level 98, Carbon Dioxide Level 28, Anion Gap 10, Blood Urea Nitrogen 13, Creatinine 0.91, Estimat Glomerular Filtration Rate 85, BUN/Creatinine Ratio 14, Glucose Level 104, Calcium Level 8.4L, Corrected Calcium 9.2, Total Bilirubin 0.6, Aspartate Amino Transf (AST/SGOT) 21, Alanine Aminotransferase (ALT/SGPT) 15, Alkaline Phosphatase 36L, Total Protein 5.8L, Albumin 3.0L, Procalcitonin 0.12H 02/19/22 06:18: White Blood Count 2.9L, Red Blood Count 3.37L, Hemoglobin 9.9L, Hematocrit 31L, Mean Corpuscular Volume 93, Mean Corpuscular Hemoglobin 29, Mean Corpuscular Hemoglobin Concent 32, Red Cell Distribution Width 13.2, Platelet Count 160, Mean Platelet Volume 9.6, Immature Granulocyte % (Auto) 0, Neutrophils (%) (Auto) 57, Lymphocytes (%) (Auto) 23, Monocytes (%) (Auto) 12, Eosinophils (%) (Auto) 7, Basophils (%) (Auto) 0, Neutrophils # (Auto) 1.6L, Lymphocytes # ( Auto) 0.7L, Monocytes # (Auto) 0.4, Eosinophils # (Auto) 0.2, Basophils # (Auto) 0.0, Immature Granulocyte # (Auto) 0.0, Sodium Level 136, Potassium Level 3.8, Chloride Level 98, Carbon Dioxide Level 26, Anion Gap 12, Blood Urea Nitrogen 13, Creatinine 1.02, Estimat Glomerular Filtration Rate 74, BUN/Creatinine Ratio 13, Glucose Level 136H, Calcium Level 8.7, Corrected Calcium 9.3, Total Bilirubin 0.6, Aspartate Amino Transf (AST/SGOT) 18, Alanine Aminotransferase (ALT/SGPT) 18, Alkaline Phosphatase 41, Total Protein 6.5, Albumin 3.3, Procalcitonin 0.07 02/23/22 05:24: White Blood Count 3.1L, Red Blood Count 3.46L, Hemoglobin 10.3L, Hematocrit 31L, Mean Corpuscular Volume 90, Mean Corpuscular Hemoglobin 30, Mean Corpuscular Hemoglobin Concent 33, Red Cell Distribution Width 13.2, Platelet Count 209, Mean Platelet Volume 9.1, Immature Granulocyte % (Auto) 0, Neutrophils (%) (Auto) 47, Lymphocytes (%) (Auto) 31, Monocytes (%) (Auto) 15H, Eosinophils (%) (Auto) 8, Basophils (%) (Auto) 0, Neutrophils # (Auto) 1.5L, Lymphocytes # (Auto) 1.0, Monocytes # (Auto) 0.5, Eosinophils # (Auto) 0.2, Basophils # (Auto) 0.0, Immature Granulocyte # (Auto) 0.0, Sodium Level 137, Potassium Level 4.2, Chloride Level 99, Carbon Dioxide Level 27, Anion Gap 11, Blood Urea Nitrogen 15, Creatinine 0.95, Estimat Glomerular Filtration Rate 81, BUN/Creatinine Ratio 16, Glucose Level 105, Calcium Level 8.4L, Corrected Calcium 9.0, Total Bilirubin 0.5, Aspartate Amino Transf (AST/SGOT) 13, Alanine Aminotransferase (ALT/SGPT) 12, Alkaline Phosphatase 53, Total Protein 6.6, Albumin 3.3 Pending Labs Laboratory Tests 02/17/22 05:51: White Blood Count 2.5, Red Blood Count 2.97, Hemoglobin 8.9, Hematocrit 27, Mean Corpuscular Volume 91, Mean Corpuscular Hemoglobin 30, Mean Corpuscular Hemoglobin Concent 33, Red Cell Distribution Width 13.3, Platelet Count 116, Mean Platelet Volume 9.7, Immature Granulocyte % (Auto) 0, Neutrophils (%) (Auto) 63, Lymphocytes (%) (Auto) 17, Monocytes (%) (Auto) 14, Eosinophils (%) (Auto) 6, Basophils (%) (Auto) 0, Neutrophils # (Auto) 1.6, Lymphocytes # (Auto) 0.4, Monocytes # (Auto) 0.3, Eosinophils # (Auto) 0.2, Basophils # (Auto) 0.0, Immature Granulocyte # (Auto) 0.0, Neutrophils % (Manual) 65, Lymphocytes % (Manual) 17, Monocytes % (Manual) 11, Eosinophils % (Manual) 4, Basophils % (Manual) 0, Band Neutrophils 3, Percent Immature Platelet Fraction 3.8, Anisocytosis SLIGHT, Absolute Reticulocyte Count 78, Percent Reticulocyte Count 2.59, Sodium Level 136, Potassium Level 4.0, Chloride Level 98, Carbon Dioxide Level 28, Anion Gap 10, Blood Urea Nitrogen 13, Creatinine 0.91, Estimat Glomerular Filtration Rate 85, BUN/Creatinine Ratio 14, Glucose Level 104, Calcium Level 8.4, Corrected Calcium 9.2, Total Bilirubin 0.6, Aspartate Amino Transf (AST/SGOT) 21, Alanine Aminotransferase (ALT/SGPT) 15, Alkaline Phosphatase 36, Total Protein 5.8, Albumin 3.0, Procalcitonin 0.12 02/19/22 06:18: White Blood Count 2.9, Red Blood Count 3.37, Hemoglobin 9.9, Hematocrit 31, Mean Corpuscular Volume 93, Mean Corpuscular Hemoglobin 29, Mean Corpuscular Hemoglobin Concent 32, Red Cell Distribution Width 13.2, Platelet Count 160, Mean Platelet Volume 9.6, Immature Granulocyte % (Auto) 0, Neutrophils (%) (Auto) 57, Lymphocytes (%) (Auto) 23, Monocytes (%) (Auto) 12, Eosinophils (%) (Auto) 7, Basophils (%) (Auto) 0, Neutrophils # (Auto) 1.6, Lymphocytes # (Auto) 0.7, Monocytes # (Auto) 0.4, Eosinophils # (Auto) 0.2, Basophils # (Auto) 0.0, Immature Granulocyte # (Auto) 0.0, Sodium Level 136, Potassium Level 3.8, Chloride Level 98, Carbon Dioxide Level 26, Anion Gap 12, Blood Urea Nitrogen 13, Creatinine 1.02, Estimat Glomerular Filtration Rate 74, BUN/Creatinine Ratio 13, Glucose Level 136, Calcium Level 8.7, Corrected Calcium 9.3, Total Bilirubin 0.6, Aspartate Amino Transf (AST/SGOT) 18, Alanine Aminotransferase (ALT/SGPT) 18, Alkaline Phosphatase 41, Total Protein 6.5, Albumin 3.3, Procalcitonin 0.07 02/23/22 05:24: White Blood Count 3.1, Red Blood Count 3.46, Hemoglobin 10.3, Hematocrit 31, Mean Corpuscular Volume 90, Mean Corpuscular Hemoglobin 30, Mean Corpuscular Hemoglobin Concent 33, Red Cell Distribution Width 13.2, Platelet Count 209, Mean Platelet Volume 9.1, Immature Granulocyte % (Auto) 0, Neutrophils (%) (Auto) 47, Lymphocytes (%) (Auto) 31, Monocytes (%) (Auto) 15, Eosinophils (%) (Auto) 8, Basophils (%) (Auto) 0, Neutrophils # (Auto) 1.5, Lymphocytes # (Auto) 1.0, Monocytes # (Auto) 0.5, Eosinophils # (Auto) 0.2, Basophils # (Auto) 0.0, Immature Granulocyte # (Auto) 0.0, Sodium Level 137, Potassium Level 4.2, Chloride Level 99, Carbon Dioxide Level 27, Anion Gap 11, Blood Urea Nitrogen 15, Creatinine 0.95, Estimat Glomerular Filtration Rate 81, BUN/Creatinine Ratio 16, Glucose Level 105, Calcium Level 8.4, Corrected Calcium 9.0, Total Bilirubin 0.5, Aspartate Amino Transf (AST/SGOT) 13, Alanine Aminotransferase (ALT/SGPT) 12, Alkaline Phosphatase 53, Total Protein 6.6, Albumin 3.3 Discharge Home Medications: Active Scripts Active Metoclopramide HCl 10 Mg Tablet 10 Mg PO ACHS Ondansetron Odt (Ondansetron) 4 Mg Tab.rapdis 4 Mg PO Q6H PRN Prochlorperazine Maleate 10 Mg Tablet 10 Mg PO QID PRN Hydrocodone-Acetamin 10-325 mg (Hydrocodone/Acetaminophen) 10 Mg-325 Mg Tablet 1 Each PO Q4H PRN Reported Terazosin HCl 10 Mg Capsule 10 Mg PO HS Sumatriptan Succinate 50 Mg Tablet 50 Mg PO UD PRN Simvastatin 20 Mg Tablet 20 Mg PO 1800 W/ SUPPER Ropinirole HCl 2 Mg Tablet 2 Mg PO HS Potassium Chloride 20 Meq Tablet.er 20 Meq PO DAILY Omeprazole 40 Mg Capsule.dr 40 Mg PO DAILY Gabapentin 600 Mg Tablet 600 Mg PO TID Depakote (Divalproex Sodium) 250 Mg Tablet.dr 250 Mg PO TID Diclofenac Sodium 1 % Gel..gram. 1 Applic TP QID PRN APPLY TO AFFECTED AREA Cetirizine HCl 10 Mg Tablet 10 Mg PO 1300 TAKES AFTER LUNCH Refresh Tears (Carboxymethylcellulose Sodium) 0.5 % Drops 1 Drop OU BID PRN Instructions to patient/family Please see electronic discharge instructions given to patient. Diagnosis/Problems Diagnosis/Problems (1) Spinal stenosis, lumbar region with neurogenic claudication Clinical Quality Measures DVT/VTE Risk/Contraindication: Contraindications-Pharm: Other *list below* Other: spinal hematoma risk GEORGE OMER DO Feb 26, 2022 05:47
[2022-02-26] MEDS: OMEPRAZOLE 40 MG CAPSULE PO SCH (06:27)
[2022-02-26] MEDS: KCL 20 MEQ TAB (K-DUR) PO SCH (06:28)
[2022-02-26] MEDS: METOCLOPRAMIDE 10 MG (REGLAN) TAB PO SCH (06:28)
[2022-02-26 07:53] VITALS: BP 135/75
[2022-02-26 09:25] VITALS: BP 135/75
--- NOTE | 2022-02-26 12:10 | Therapy Team Discharge Summary ---
Therapy Discharge Summary Discharge Recommendations Date of Discharge Feb 26, 2022 at 07:50 Physical Therapy Patient came to rehab post L4-S1 TLIF/PSF. Upon evaluation patient performed rolling and supine <-> sit with CGA/SBA, sit <-> stand and transfers CGA/SBA, car transfers CGA/SBA, ambulated 150' with a rolling walker with CGA/SBA (including 50' with at least 2 turns of 90 degrees and 10' over an uneven surface), went up and down 4 steps using 2 handrails with min/mod assist, and picked up an object from the floor with a certified hand therapist with CGA/SBA. Patient has been performing bed mobility and transfer training, balance and endurance training, functional strengthening, stair training, gait training, and education. 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 Now, patient performs rolling and supine <-> sit with independence, sit <-> stand and transfers with independence, car transfer independent, ambulates 225' with a rolling walker with independence (including 50' with at least 2 turns of 90 degrees and 10' over an uneven surface), and can go up and down 4 steps using 2 handrails with independence. Patient is being discharged from this facility today and will be discharged from PT at this time. Roll Left to Right (QC): 6 Sit to Lying (QC): 6 Lying to Sitting/Side of Bed(Q: 6 Sit to Stand (QC): 6 Chair/Okl-my-Shjof Xfer(QC): 6 Toilet Transfer (QC): 6 Car Transfer (QC): 6 Does the Patient Walk: Yes Mode of Locomotion: Walk Anticipated Mode of Locomotion: Walk Walk 10 feet (QC): 6 Walk 50 ft with 2 Turns(QC): 6 Walk 150 ft (QC): 6 Walking 10ft on uneven surface: 6 Distance: 150' x 5 Gait Assistive Device: FWW Does the Pt Use a Wheelchair: No Wheel 50 ft with 2 turns (QC): 9 Wheel 150 ft (QC): 9 #of Steps: 4 1 Step (curb) (QC): 6 4 Steps (QC): 6 12 Steps (QC): 7 Balance Sitting Static: Normal Balance Sitting Dynamic: Normal Balance-Standing Static: Good Picking up an Object (QC): 88 Occupational Therapy Decreased Activ Tolerance, Decreased UE Strength, Impaired Funct Balance, Impaired I ADL's, Impaired Self-Care Skills Eating (QC): 6 (Per pt report) Oral Hygiene (QC): 6 Shower/Bathe Self (QC): 5 Upper Body Dressing (QC): 6 Lower Body Dressing (QC): 6 On/Off Footwear (QC): 6 Toileting Hygiene (QC): 6 PT Jail Goals Bacon Skinner Goals PT Bacon Skinner Goals Time Frame: Mar 21, 2022 Roll Left to Right (QC): 6 Sit to Lying (QC): 6 Lying-Sitting on Side/Bed(QC): 6 Sit to Stand (QC): 6 Chair/Rhi-zm-Nhsba Xfer(QC): 6 Car Transfer (QC): 6 Does the Patient Walk: Yes Walk 10 feet (QC): 6 Walk 10ft-Uneven Surface(QC): 6 Walk 50ft with 2 Turns (QC): 6 Walk 150 ft (QC): 6 Wheel 50 feet with 2 turns (QC: 9 1 Step (curb) (QC): 4 4 Steps (QC): 4 12 Steps (QC): 88 Picking up an Object (QC): 6 OT Jail Goals Bacon Skinner Goals Time Frame: Mar 13, 2022 Eating (QC): 6 (met) Oral Hygiene (QC): 6 (met) Shower/Bathe Self (QC): 5 (met) Upper Body Dressing (QC): 6 (met) Lower Body Dressing (QC): 6 (met) On/Off Footwear (QC): 6 (met) Toileting Hygiene (QC): 6 (met) Toilet/Commode Transfer (QC): 6 Additional Goals: 1-Demonstrate ADL Tasks, 2-Verbalize Understanding, 3- ImproveStrength/Claudette 1=Demonstrate adherence to instructed precautions during ADL tasks. 2=Patient will verbalize/demonstrate understanding of assistive devices/modifications for ADL. 3=Patient will improve strength/tolerance for activity to enable patient to perform ADL's. WILEY VILLAREAL PT Feb 26, 2022 12:10
--- NOTE | 2022-02-26 15:01 | Therapy Team Discharge Summary ---
Therapy Discharge Summary Discharge Recommendations Date of Discharge Feb 26, 2022 at 07:50 Physical Therapy Roll Left to Right (QC): 6 Sit to Lying (QC): 6 Lying to Sitting/Side of Bed(Q: 6 Sit to Stand (QC): 6 Chair/Cql-xe-Jlmti Xfer(QC): 6 Toilet Transfer (QC): 6 Car Transfer (QC): 6 Does the Patient Walk: Yes Mode of Locomotion: Walk Anticipated Mode of Locomotion: Walk Walk 10 feet (QC): 6 Walk 50 ft with 2 Turns(QC): 6 Walk 150 ft (QC): 6 Walking 10ft on uneven surface: 6 Distance: 150' x 5 Gait Assistive Device: FWW Does the Pt Use a Wheelchair: No Wheel 50 ft with 2 turns (QC): 9 Wheel 150 ft (QC): 9 #of Steps: 4 1 Step (curb) (QC): 6 4 Steps (QC): 6 12 Steps (QC): 7 Balance Sitting Static: Normal Balance Sitting Dynamic: Normal Balance-Standing Static: Good Picking up an Object (QC): 88 Occupational Therapy Pt presented to ARU s/p L4-S1 TLIF/PSF. At PLOF, pt was IND with ADLs and used a SPC PRN for functional mobility. At eval, pt was IND with eating, setup for oral care, Min A with showering, setup with UBD, Mod A with LBD, Max A with footwear, and SBA with toileting. OT tx focused on increasing IND in ADLs, functional balance and transfers, activity tolerance, and BUE strength and endurance. Pt made great progress, meeting 7/7 goals. OT recommends pt obtain extended bath bench, grab bars, a hip kit with wide sock aide, and a shoe funnel upon d/c to maximize IND in ADLs. OT also recommended pt continue with skilled OT services with a home health agency upon d/c. Pt is being d/c home to spouse. D/c from OT at this time. Decreased Activ Tolerance, Decreased UE Strength, Impaired Funct Balance, Impa ired I ADL's, Impaired Self-Care Skills Eating (QC): 6 (Per pt report) Oral Hygiene (QC): 6 (met) Shower/Bathe Self (QC): 5 (met) Upper Body Dressing (QC): 6 (met) Lower Body Dressing (QC): 6 (met) On/Off Footwear (QC): 6 (met) Toileting Hygiene (QC): 6 (met) PT Medical Aides Teacher Goals [facility] Goals PT Medical Aides Teacher Goals Time Frame: Mar 21, 2022 Roll Left to Right (QC): 6 Sit to Lying (QC): 6 Lying-Sitting on Side/Bed(QC): 6 Sit to Stand (QC): 6 Chair/Ylx-dd-Qukpm Xfer(QC): 6 Car Transfer (QC): 6 Does the Patient Walk: Yes Walk 10 feet (QC): 6 Walk 10ft-Uneven Surface(QC): 6 Walk 50ft with 2 Turns (QC): 6 Walk 150 ft (QC): 6 Wheel 50 feet with 2 turns (QC: 9 1 Step (curb) (QC): 4 4 Steps (QC): 4 12 Steps (QC): 88 Picking up an Object (QC): 6 OT Medical Aides Teacher Goals Usp Goals Time Frame: Mar 13, 2022 Eating (QC): 6 (met) Oral Hygiene (QC): 6 (met) Shower/Bathe Self (QC): 5 (met) Upper Body Dressing (QC): 6 (met) Lower Body Dressing (QC): 6 (met) On/Off Footwear (QC): 6 (met) Toileting Hygiene (QC): 6 (met) Toilet/Commode Transfer (QC): 6 Additional Goals: 1-Demonstrate ADL Tasks, 2-Verbalize Understanding, 3-Improve Strength/Claudette 1=Demonstrate adherence to instructed precautions during ADL tasks. 2=Patient will verbalize/demonstrate understanding of assistive devices/modifications for ADL. 3=Patient will improve strength/tolerance for activity to enable patient to pe rform ADL's. JASSON ROSADO OT Feb 26, 2022 15:01
== END 2022-02-26 07:50 | disposition home or self-care (01) | DRG 561 ==
PROVIDERS: ADMIT Internal Medicine; ATTEND Internal Medicine
DX: Z47.89 Encounter for other orthopedic aftercare (principal); E78.00 Pure hypercholesterolemia, unspecified; I10 Essential (primary) hypertension; G62.9 Polyneuropathy, unspecified; N40.0 Benign prostatic hyperplasia without lower urinary tract symptoms; K21.9 Gastro-esophageal reflux disease without esophagitis; M19.91 Primary osteoarthritis, unspecified site; F41.9 Anxiety disorder, unspecified; G25.81 Restless legs syndrome; R06.6 Hiccough; R50.82 Postprocedural fever; G43.909 Migraine, unspecified, not intractable, without status migrainosus; Z87.891 Personal history of nicotine dependence; Z88.0 Allergy status to penicillin; Z85.828 Personal history of other malignant neoplasm of skin; Z79.899 Other long term (current) drug therapy
CPT/HCPCS: 36415; 80053; 84145; 85007; 85025; 85027; 85045; 85055